=== PATIENT | female | born 1950 | race Caucasian/White ===

== ENCOUNTER → 2016-11-26 | Outpatient (CLI) | payer OTHER, MEDICAID ==
[~2016-11-26] VITALS: Ht 144.8 cm; Wt 89.0 kg
[~2016-11-26] MED LIST: ACET-822 PO; AMLO5CAP3 PO; AMOX500C PO; BENZOCAINE 20% ORAL SPR 60 ML CAN OROPHARYNG ONE; HYDR-3583 PO; LIDOCAINE HCL 2% JELLY 5 ML SYRINGE TOPICAL ONE; LORA-373 PO; METH500T3 PO; OMEP40CA2 PO; VENTAER INH
[2016-11-26 07:12] VITALS: BP 126/75; PULSE 84; RESP 16; TEMP 98.8; O2SAT 96
== END ==
LOC: HEND 06:36
PROVIDERS: ATTEND Internal Medicine Gastroenterology
DX: K44.9 Diaphragmatic hernia without obstruction or gangrene (principal)
CPT/HCPCS: 91010

== ENCOUNTER 2017-03-05 10:01 | Observation (INO) | payer OTHER, MEDICAID ==
[~2017-03-05] VITALS: Ht 144.8 cm; Wt 90.5 kg
[~2017-03-05 10:01] MED LIST changes: -ACET-822 PO; -AMOX500C PO; -BENZOCAINE 20% ORAL SPR 60 ML CAN OROPHARYNG ONE; -LIDOCAINE HCL 2% JELLY 5 ML SYRINGE TOPICAL ONE; -METH500T3 PO
[2017-03-05] MEDS ORDERED: ceFAZolin 2 GM PREMIX 50 ML IV SCH (10:45)
[2017-03-05] MEDS ORDERED: ACET-822 PO (10:59)
[2017-03-05] MEDS ORDERED: CHLORHEXIDINE GLUCONATE 2 % 1 PACK (2 CLOTHS) TOPICAL PRN (11:00)
[2017-03-05] MEDS ORDERED: LACTATED RINGER'S 1000 ML IV PRN (11:00)
[2017-03-05] MEDS ORDERED: METOPROLOL TARTRATE 25 MG TAB PO PRN (11:00)
[2017-03-05] MEDS ORDERED: POVIDONE IODINE 5% (ANTISEPSIS KIT) 4 APPLICATIONS EACH NARE PRN (11:00)
[2017-03-05] MEDS ORDERED: SODIUM CHLORID 0.9% 500 ML IV PRN (11:00)
[2017-03-05] MEDS ORDERED: INSULIN HUMAN REGULAR 1,000 UNITS/10 ML VIAL SQ PRN (11:00)
[2017-03-05 11:05] LABS: AUTOMATED NEUTROPHIL # 5.7 TH/MM3 (1.8-7.7); BASOPHIL # 0.1 TH/MM3 (0-0.2); BASOPHIL % 0.7 % (0.0-2.0); EOSINOPHIL # 0.3 TH/MM3 (0-0.4); HEMATOCRIT 36.5 % (35.0-46.0); HEMO FLAGS DIFF FINAL; LYMPH % 27.9 % (9.0-44.0); LYMPHOCYTE # 2.6 TH/MM3 (1.0-4.8); MEAN CELL VOLUME 66.1 FL (80.0-100.0); MEAN CORPUSCULAR HEMOGLOBIN 20.6 PG (27.0-34.0); MEAN CORPUSCULAR HGB CONC 31.2 % (32.0-36.0); MONO % 7.9 % (0.0-8.0); NEUT % 60.5 % (16.0-70.0); PLATELET COUNT 260 TH/MM3 (150-450); RED BLOOD COUNT 5.53 MIL/MM3 (4.00-5.30); RED CELL DISTRIBUTION WIDTH 17.2 % (11.6-17.2); WHITE BLOOD COUNT 9.5 TH/MM3 (4.0-11.0)
[2017-03-05 11:13] VITALS: BP 146/74; PULSE 104; RESP 18; TEMP 98.6; O2SAT 96
[2017-03-05 11:19] LABS: BICARBONATE 28.7 MEQ/L (21.0-32.0); POTASSIUM 3.8 MEQ/L (3.5-5.1)
[2017-03-05] MEDS ORDERED: LACTATED RINGER'S 1000 ML INJ 2,000 ML IV ONE (12:00)
[2017-03-05] MEDS ORDERED: PROPOFOL 200 MG/20 ML AMP IV ONE (12:00)
[2017-03-05] MEDS ORDERED: PHENYLEPH/NS 1000 MCG/10 ML SYR IV ONE (12:00)
[2017-03-05] MEDS ORDERED: NEOSTIGMINE 3 MG/3 ML SYR IV ONE (12:00)
[2017-03-05] MEDS ORDERED: ONDANSETRON HCL 4 MG/2 ML VIAL IV PUSH ONE (12:00)
[2017-03-05] MEDS ORDERED: MIDAZOLAM HCL 2 MG/2 ML VIAL ONE (13:55)
[2017-03-05] MEDS ORDERED: FAMOTIDINE 20 MG/2 ML VIAL ONE (13:55)
[2017-03-05] MEDS ORDERED: ACETAMINOPHEN 1000 MG/100 ML VIAL IV ONE (13:55)
[2017-03-05] MEDS ORDERED: DEXAMETHASONE SOD PHOS 4 MG/ML VIAL ONE (13:55)
--- NOTE | 2017-03-05 14:12 | HHI.PR ---
Immediate Post Op Note Procedure Date: Mar 05, 2017 Pre Op Diagnosis: reflux, hiatal hernia Post Op Diagnosis: same Surgeon: Edwin Griggs MD Wolf Hunter(s): Dr. Germán Sharif Procedure: robotic assts partial toupet fundoplication, EGD Findings: egd Complications: none Specimen(s) removed: none Estimated blood loss: 15cc Anesthesia: General Drains: None Patient to: PACU Patient Condition: Good Edwin Griggs MD Mar 05, 2017 14:11
[2017-03-05] MEDS ORDERED: BUPIVACAINE/EPINEPHRINE 0.25% 50 ML VIAL INFIL ONE (14:40)
[2017-03-05] MEDS ORDERED: fentaNYL CITRATE 250 MCG/5 ML AMP ONE (16:16)
[2017-03-05] MEDS ORDERED: HALOPERIDOL LACTATE 5 MG/ML AMP ONE (18:11)
[2017-03-05] MEDS ORDERED: ACETAMINOPHEN/HYDROcodone 325 MG/5 MG TAB PO PRN (18:15)
[2017-03-05] MEDS ORDERED: NALOXONE HCL 0.4 MG/ML AMP IV PRN (18:15)
[2017-03-05] MEDS ORDERED: diphenhydrAMINE HCL 25 MG CAP PO PRN (18:15)
[2017-03-05] MEDS ORDERED: Post-op Orders (for Pharmacy) MISC XX ONE (18:15)
[2017-03-05] MEDS ORDERED: SODIUM CHLORIDE 0.9% FLUSH 10 ML FLUSH IV FLUSH PRN (18:15)
[2017-03-05] MEDS ORDERED: ONDANSETRON HCL 4 MG/2 ML VIAL IV PRN (18:15)
[2017-03-05] MEDS ORDERED: METOCLOPRAMIDE HCL 10 MG/2 ML VIAL IVS PRN (18:15)
[2017-03-05] MEDS ORDERED: *HYDROmorphone PF 1 MG VIAL PERIprocedural Use ONLY ONE (18:29)
[2017-03-05] MEDS ORDERED: DO NOT ADM ANY ANTICOAGULANT DRUGS PRN (18:45)
[2017-03-05] MEDS ORDERED: *ONDANSETRON 4 MG VIAL PERIprocedural Use ONLY ONE (18:51)
[2017-03-05] MEDS ORDERED: *RESP: ALBUTEROL 2.5 MG/3 ML NEB (PRN) PERIprocedural Use ONLY NEB ONE (18:53)
[2017-03-05] MEDS ORDERED: MEPERIDINE HCL 25 MG/ML VIAL ONE (19:24)
[2017-03-05] MEDS: METOCLOPRAMIDE HCL 10 MG/2 ML VIAL IVS SCH (20:00)
[2017-03-05] MEDS: metroNIDAZOLE 500 MG INJ 100 ML IV SCH (20:00)
[2017-03-05] MEDS: SODIUM CHLORIDE 0.9% FLUSH 10 ML FLUSH IV FLUSH SCH (21:00)
[2017-03-05] MEDS: DOCUSATE SODIUM 100 MG CAP PO SCH (21:00)
[2017-03-05 21:01] VITALS: BP 133/62; PULSE 114; RESP 21; TEMP 96.4; O2SAT 95
[2017-03-05] MEDS ORDERED: PCA - TOTAL MG MORPHINE DELIVERED PER SHIFT SCH (22:00)
--- NOTE | 2017-03-05 22:51 | EKG ---
Date Performed: 03/05/2017 Time Performed: 11:04:25 PTAGE: 66 years EKG: Sinus rhythm NONSPECIFIC T-WAVE ABNORMALITY BORDERLINE ECG PREVIOUS TRACING : 02/26/2014 07.37 Compared to the previous tracing T wave changes less promin ent DOCTOR: Nery Santana Interpretating Date/Time 03/05/2017 22:50:59
[2017-03-06] VITALS (7 sets, daily range): BP systolic 87–139; BP diastolic 50–65; PULSE 85–101; RESP 16–20; TEMP 96.4–98.3; O2SAT 90–96
[2017-03-06] MEDS: METOCLOPRAMIDE HCL 10 MG/2 ML VIAL IVS SCH ×4 (03:00→21:37)
[2017-03-06] MEDS: metroNIDAZOLE 500 MG INJ 100 ML IV SCH ×2 (04:46→13:08)
[2017-03-06] MEDS: PCA - TOTAL MG DILAUDID DELIVERED PER SHIFT OTHER SCH ×3 (05:44→22:00)
[2017-03-06] MEDS: HYDROmorphone HCL PCA 6 MG/30 ML IV SCH ×2 (06:03→14:10)
[2017-03-06 08:03] LABS: AUTOMATED NEUTROPHIL # 10.8 TH/MM3 (1.8-7.7); BASOPHIL # 0.1 TH/MM3 (0-0.2); BASOPHIL % 0.4 % (0.0-2.0); EOSINOPHIL % 0.1 % (0.0-4.0); HEMATOCRIT 33.3 % (35.0-46.0); HEMO FLAGS DIFF FINAL; LYMPH % 11.1 % (9.0-44.0); LYMPHOCYTE # 1.5 TH/MM3 (1.0-4.8); MEAN CORPUSCULAR HEMOGLOBIN 20.5 PG (27.0-34.0); MEAN CORPUSCULAR HGB CONC 31.1 % (32.0-36.0); MONO % 6.3 % (0.0-8.0); NEUT % 82.1 % (16.0-70.0); PLATELET COUNT 279 TH/MM3 (150-450); RED BLOOD COUNT 5.05 MIL/MM3 (4.00-5.30); RED CELL DISTRIBUTION WIDTH 17.3 % (11.6-17.2); WHITE BLOOD COUNT 13.1 TH/MM3 (4.0-11.0)
[2017-03-06 08:13] LABS: BICARBONATE 25.9 MEQ/L (21.0-32.0); POTASSIUM 5.5 MEQ/L (3.5-5.1)
[2017-03-06] MEDS: SODIUM CHLORIDE 0.9% FLUSH 10 ML FLUSH IV FLUSH SCH ×2 (09:00→21:00)
[2017-03-06] MEDS: DOCUSATE SODIUM 100 MG CAP PO SCH ×2 (09:36→21:36)
[2017-03-06] MEDS: ACETAMINOPHEN/HYDROcodone 325 MG/5 MG TAB PO PRN ×2 (17:35→21:42)
[2017-03-07] VITALS: BP 119/57; PULSE 100; RESP 19; TEMP 99; O2SAT 94
[2017-03-07] MEDS: METOCLOPRAMIDE HCL 10 MG/2 ML VIAL IVS SCH (01:54)
[2017-03-07 04:10] VITALS: BP 132/63; PULSE 98; RESP 18; TEMP 98.4; O2SAT 93
[2017-03-07] MEDS: PCA - TOTAL MG DILAUDID DELIVERED PER SHIFT OTHER SCH (05:43)
--- NOTE | 2017-03-07 07:27 | HHI.PR ---
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
--- NOTE | 2017-03-07 07:29 | HHI.PR ---
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
[2017-03-07] MEDS ORDERED: oxyCODONE/ACETAMINOPHEN 7.5 MG/325 MG TAB PO PRN (07:30)
[2017-03-07 08:00] VITALS: BP 127/56; PULSE 104; RESP 16; TEMP 100.4; O2SAT 91
[2017-03-07] MEDS ORDERED: ENOXAPARIN SODIUM 30 MG/0.3 ML SYRINGE SQ SCH (08:00)
[2017-03-07] MEDS: oxyCODONE/ACETAMINOPHEN 7.5 MG/325 MG TAB PO PRN ×2 (08:05→13:04)
[2017-03-07] MEDS ORDERED: SCOPOLAMINE 1.5 MG PATCH T-DERMAL SCH (09:00)
[2017-03-07 12:00] VITALS: BP 133/71; PULSE 90; RESP 16; TEMP 99.9; O2SAT 91
[2017-03-07 15:34] LABS: BICARBONATE 27.1 MEQ/L (21.0-32.0); POTASSIUM 4.3 MEQ/L (3.5-5.1)
--- NOTE | 2017-03-07 15:54 | MP ---
cc: PATEL GRIGGS MD DATE OF SURGERY: 03/05/2017. PREOPERATIVE DIAGNOSIS: 1. Longstanding reflux refractory to medical management. 2. History of hiatal hernia. 3. History of GE junction ulcer. 4. Esophageal mild dysmotility. POSTOPERATIVE DIAGNOSIS 1. Longstanding reflux refractory to medical management. 2. History of hiatal hernia. 3. History of GE junction ulcer. 4. Esophageal mild dysmotility. OPERATIVE PROCEDURE PERFORMED: 1. Robotic-assisted laparoscopic 270-degree partial fundoplication, Toupet. 2. Esophagogastroduodenoscopy. SURGEON: Dr. Patel Griggs. SUPERVISOR SOAKERS: Dr. Germán Mosley (needed due to the complex nature of the laparoscopic robotic case. Dr. Mosley assisted in camera control and retraction). FINDINGS: Small hiatal hernia. partial wrap. EGD FINDINGS: No evidence of the GE junction ulcer. SPECIMENS: None. COMPLICATIONS: None. WOUND CLASSIFICATION: Clean / contaminated. ESTIMATED BLOOD LOSS: 40 cc. DRAINS: None. INDICATIONS FOR THE PROCEDURE: The patient is a 66-year-old female who presented for initial evaluation of reflux. The patient was also noted to have a hiatal hernia. She also noted to approximately one year ago to have a small GE junction ulcer. Biopsy confirmed esophagitis, reflux-induced. Further workup including manometry showed mild dysmotility. The upper GI confirmed hiatal hernia. The patient has been on chronic proton pump inhibitors without improvement in her reflux; therefore decision was made for operative intervention including partial wrap Toupet versus possible Tyler fundoplication and hiatal hernia repair. This was discussed with the patient in detail who stated understanding and agreed wanted to proceed with the procedure. DESCRIPTION OF THE PROCEDURE IN DETAIL: The patient was taken to the operating room suite and placed in the supine position. She was prepped and draped in the usual sterile fashion. The patient initially underwent an esophagogastroduodenoscopy. The Pentax esophageal scope was obtained after a brief time-out stating correct patient, procedure and surgical site. Bite block was placed. The scope was placed through the bite block and oropharynx down the esophagus and into the stomach. Gentle insufflation was done. I did not over-extend the stomach for the planned robotic procedure. On endoscopic evaluation of GE junction, there was no note of any ulceration just minimal gastritis and esophagitis. Retroflexed views demonstrated a small hiatal hernia and no other evidence of masses or abnormalities. The extent of the exam was to the pylorus. The gastroscope was retracted under direct visualization. The patient tolerated this part of te procedure and therefore decision was made to proceed with partial fundoplication. The patient was then prepped and draped to her abdomen in the usual sterile fashion. Attention was first directed 15 cm below the umbilicus where a stab umm incision was made. A Visiport was used with 5-mm cannula and the scope was used to cannulate and introduce into the abdomen and a pneumoperitoneum was obtained. On gross inspection, 15 cm noted to be somewhat proximal therefore a second incision was made 4 cm distal to this closer to the umbilicus and the camera port was placed in this area. A 12 mm port was placed for the robotic camera. Several other ports were placed including a right upper quadrant approximately 10 cm away from the camera port and 5 cm superiorly. Local anesthetic was injected. A stab umm incision was made. An 8 port was placed robotic in this area. The second robot port was placed on the left upper quadrant abdomen again 10 cm away and approximately 8 cm cephalad from this stab umm incision made after injection of local anesthetic an 8 port placed. Next a 5 mm assist port was placed in left lateral quadrant under direct visualization. This was an insufflator port. The liver port was actually placed initially as well. A 5 mm right upper quadrant subcostal anterior axillary line port was placed. The patient was then placed in reverse Trendelenburg position. The liver retractor was secured in place. The patient was noted to have very significant large fatty liver. Therefore umbilical tape was obtained to assist in further retraction and brought through the superior midline incision port that was then removed. Hemostat was used to secure it in place. Nest the nasogastric tube was advanced. Attention was directed to the pars flaccida and this was incised. The gastrohepatic ligament was also incised starting to identify the right karl in a circumferential manner dissecting the esophagus from this. Also going posteriorly robotically. The robot arms were also docked prior to this. I broke scrub and sat at the console. A window was made posteriorly. This was done with a Rodrigo and Harmonic scalpel. A large Lamar was used to place around the esophagus and GE junction for assistance in retraction. Further dissection to identify the hiatal hernia and dissection posteriorly to identify both the left and right karl was done to fully mobilize and scalpelize this area. Upon circumferential mobilization of the esophagus into the chest it was confirmed the GE junction was indeed intra-abdominal. The vagus nerves were identified anterior and posterior and protected. Next attention was directed to the greater curvature of the stomach where approximately two thirds the distance was transected up along to the angle of His mobilizing the superior portion with the harmonic transecting the short gastric vessels. Once we were satisfied with this, the repair began in the hiatal hernia. This was done with #0 silk sutures in [id number]-sd-elnch fashion with one tikbel-[id number]-vzuvf followed by a simple suture. The esophagus was noted at the hiatus and it was felt to be loosely approximating the crura. The greater curve of the stomach was grasped and brought posteriorly in a Toupet fashion. A shoeshine technique was done around the esophageal junction in order to facilitate a nice floppy partial 270 degree wrap. Several sutures were placed with 2-0 Surgidac involving the right upper piece of esophagus, corner of the stomach and securing to the superior right karl was done with simple 2-0 silk suture. Next several sutures were placed with one suture placed posteriorly and more inferiorly to this along the midline of the karl to help stabilize and secure the wrap in place. A third suture was placed involving the esophagus and more inferior portion of the greater curve that wrapped around posteriorly in order to facilitate a partial wrapping of the stomach. Attention was then directed to the left clues where a 2-0 silk was used to grab the corner of the stomach, the esophagus and the karl approximating this and creating again the partial wrap. Several other sutures were placed down inferior to this including 2-0 silk sutures to again facilitate wrapping partially the superior portion of the stomach around the esophageal GE junction. Once we had finished this and we were content with this, and prior to completion, fat pads were mobilized and transected as there was again extremely fatty liver and significant amount of omental fat intra-abdominally. The small liver lacerations remained hemostatic. Next the robot was then undocked and we finished the procedure laparoscopically removing Ray-Nelli that were placed intra-abdominally x2 followed by the Art followed by all needles and noted to be correct counts. Evicel hemostatic agent was then placed to assist with hemostasis. Irrigation was done in the upper quadrants until clear. Next the Amrgy-Flex liver retractor was then removed. The 12-mm camera port was closed after removal of the trocar with 0 Vicryl. All lap and instrument counts were correct at the end of the procedure. There was no intraoperative complication. The patient tolerated procedure well. Once the pneumoperitoneum was removed, the incisions were closed with 4-0 Monocryl and sterile dressings were then placed place. The patient taken stable to the post-anesthesia care unit extubated. IV fluids were 3000 cc. Lars MD CLAUDE Holden/AYAZ /9:30 PM /3:29 PM
[2017-03-10] MEDS ORDERED: REMOVE OLD SCOPOLAMINE PATCH T-DERMAL SCH (09:00)
== END 2017-03-07 17:04 | disposition home or self-care (01) ==
LOC: HSDC 10:01 → EDSTATUS 12:30 → HSDI 18:06 → N06B 21:06
PROVIDERS: ADMIT Surgery; ATTEND Surgery
DX: K21.0 Gastro-esophageal reflux disease with esophagitis (principal); K22.4 Dyskinesia of esophagus; K44.9 Diaphragmatic hernia without obstruction or gangrene; K76.0 Fatty (change of) liver, not elsewhere classified; S36.114A Minor laceration of liver, initial encounter; I10 Essential (primary) hypertension; J44.9 Chronic obstructive pulmonary disease, unspecified; X58.XXXA Exposure to other specified factors, initial encounter
CPT/HCPCS: 00790; 00810; 43280; 44376; 76937; 80048; 85025; 93005; 94150; 94664; G0378; J0131; J0690; J1100; J1170; J1630; J1650; J2175; J2250; J2370; J2405; J2710; J2765; J3010; J7120; J7613; S2900

== ENCOUNTER 2018-05-18 18:10 | Observation (INO) ==
[2018-05-18] MEDS ORDERED: HYDROmorphone PF Inj 4 MG/ML Ampul IM ONE (19:28)
--- NOTE | 2018-05-18 19:41 | ED ---
HPI General Chief complaint: Mill Supervisor Problem Stated complaint: medical doctor Time Seen by Provider: 05/18/18 19:20 History of Present Illness HPI narrative: pt has vascular port right subclavian area that is oozing blood still continues inspite of dressing denies anticoagulation allergic to asa and Has Lung CA . Vascular access was put in today by interventional radiology Dr. Chester and her oncologist is Dr. Rohit Melendez patient is here in the ER saying that is oozing after the procedure she said she went home it was not bleeding and then started oozing blood and continued to bleed all the way up until she arrived here in our ER. She is not on anticoagulant she recently has been diagnosed with the lung cancer she reports. she had a PET scan that was questionable findings in her lower abdomen. She is scheduled for a CT abdo to search for possible mets , SHe also reports having 2 bone fractures in her lumbral spine , pt says she also has pain in her right neck and burning feeling in HEr chest MD complaint: pt had vascular access bleeding placed today Related Data Home Medications Medication Instructions Recorded Confirmed amlodipine-benazepril 1 cap PO DAILY 05/18/18 05/19/18 hydrocodone-acetaminophen 1 tab PO Q6HR PRN 05/18/18 05/19/18 Previous Rx's Medication Instructions Recorded ondansetron 4 mg PO Q6H PRN #30 tab 05/21/18 Allergies Allergy/AdvReac Type Severity Reaction Status Date / Time aspirin Allergy Severe Bleeding Verified 05/18/18 06:56 morphine Allergy Severe STS CAN'T Verified 05/18/18 06:56 BREATH, RASH vancomycin Allergy Intermediate severe Verified 05/18/18 06:56 itching and hives naproxen AdvReac Severe STS BLOOD Verified 05/18/18 06:56 IN URINE Review of Systems ROS: all other systems reviewed are negative Exam Narrative Exam Narrative: GENERAL: oozing blood from dawna cath right subclavian SKIN: Warm and dry. HEAD: Atraumatic. Normocephalic. EYES: Pupils equal and round. No scleral icterus. No injection or drainage. ENT: No nasal bleeding or discharge. Mucous membranes pink and moist. NECK: Trachea midline. No JVD. CARDIOVASCULAR: Regular rate and rhythm. RESPIRATORY: No accessory muscle use. Clear to auscultation. Breath sounds equal bilaterally. GASTROINTESTINAL: Abdomen soft, non-tender, nondistended. Hepatic and splenic margins not palpable. MUSCULOSKELETAL: Extremities without clubbing, cyanosis, or edema. No obvious deformities. NEUROLOGICAL: Awake and alert. No obvious cranial nerve deficits. Motor grossly within normal limits. Five out of 5 muscle strength in the arms and legs. Normal speech. PSYCHIATRIC: Appropriate mood and affect; insight and judgment normal. Course Initial Documented Vital Signs Temperature 98.8 F 05/18/18 18:20 Pulse Rate 96 H 05/18/18 18:20 Respiratory Rate 32 H 05/18/18 18:20 Blood Pressure 198/88 H 05/18/18 18:20 Pulse Oximetry 95 05/18/18 18:20 Last Documented Vital Signs Temperature 99.1 F 05/21/18 11:31 Pulse Rate 90 05/21/18 11:31 Respiratory Rate 18 05/21/18 11:31 Blood Pressure 107/56 L 05/21/18 11:31 Pulse Oximetry 94 L 05/21/18 11:31 Medical Decision Making MDM Narrative Medical decision making narrative: I had pt lay with right side up to alleviate pressure on the vein and I held pressure for 7 minutes standing bedside and then pressure dressing applied. Pt asked for CT of ABDO that was scheduled for outpt to follow possible mets to her abdo , I did CT chest and abdo , No hematoma around port and Pelvis did not show any obvious Mets pt observed in ER . Medical Screen Exam Complete: Yes Emergency Medical Condition: Yes Differential Diagnosis Differential Diagnosis: oozing of venules around subQ skin from recent port placement vs vascular injury to major vein from catheter vs catherter rupture vs coagulopathy from LUNG CA Lab Data Result diagrams: 05/20/18 06:05 05/20/18 06:05 Lab Results 05/18/18 05/18/18 05/19/18 Range/Units 22:55 22:55 10:51 WBC 9.2 (4.0-11.0) th/mm3 RBC 5.19 (4.00-5.30) mil/mm3 Hgb 10.8 L (11.6-15.3) gm/dL Hct 35.6 (35.0-46.0) % MCV 68.5 L (80.0-100.0) fL MCH 20.9 L (27.0-34.0) pg MCHC 30.5 L (32.0-36.0) % RDW 18.7 H (11.6-17.2) % Plt Count 268 (150-450) th/mm3 MPV 8.4 (7.0-11.0) fL Neut % (Auto) 70.9 H (16.0-70.0) % Lymph % (Auto) 20.0 (9.0-44.0) % Pickens % (Auto) 7.5 (0.0-8.0) % Eos % (Auto) 0.9 (0.0-4.0) % Baso % (Auto) 0.7 (0.0-2.0) % Neut # (Auto) 6.6 (1.8-7.7) th/mm3 Lymph # (Auto) 1.8 (1.0-4.8) th/mm3 Pickens # (Auto) 0.7 (0.0-0.9) th/mm3 Eos # (Auto) 0.1 (0.0-0.4) th/mm3 Baso # (Auto) 0.1 (0.0-0.2) th/mm3 WBC Differential . Differential Comment Auto diff final PT 10.1 (9.8-11.6) sec INR 1.0 Ratio APTT 26.3 (24.3-30.1) sec Sodium 143 (136-145) meq/L Potassium 4.1 (3.5-5.1) meq/L Chloride 107 (98-107) meq/L Carbon Dioxide 29.5 (21.0-32.0) meq/L Anion Gap 7 (5-15) meq/L BUN 11 (7-18) mg/dL Creatinine 0.76 (0.50-1.00) mg/dL Estimated GFR 76 L (>89) mL/min Random Glucose 119 H (74-106) mg/dL Calcium 7.9 L (8.5-10.1) mg/dL Total Bilirubin 0.4 (0.2-1.0) mg/dL AST 19 (15-37) U/L ALT 13 (10-53) U/L Alkaline Phosphatase 99 (45-117) U/L Total Protein 7.8 (6.4-8.2) g/dL Albumin 3.1 L (3.4-5.0) g/dL 05/20/18 05/20/18 Range/Units 06:05 06:05 WBC 8.2 (4.0-11.0) th/mm3 RBC 4.59 (4.00-5.30) mil/mm3 Hgb 9.6 L (11.6-15.3) gm/dL Hct 31.9 L (35.0-46.0) % MCV 69.5 L (80.0-100.0) fL MCH 21.0 L (27.0-34.0) pg MCHC 30.2 L (32.0-36.0) % RDW 19.0 H (11.6-17.2) % Plt Count 255 (150-450) th/mm3 MPV 8.2 (7.0-11.0) fL Neut % (Auto) 67.1 (16.0-70.0) % Lymph % (Auto) 22.9 (9.0-44.0) % Pickens % (Auto) 7.0 (0.0-8.0) % Eos % (Auto) 2.6 (0.0-4.0) % Baso % (Auto) 0.4 (0.0-2.0) % Neut # (Auto) 5.5 (1.8-7.7) th/mm3 Lymph # (Auto) 1.9 (1.0-4.8) th/mm3 Pickens # (Auto) 0.6 (0.0-0.9) th/mm3 Eos # (Auto) 0.2 (0.0-0.4) th/mm3 Baso # (Auto) 0.0 (0.0-0.2) th/mm3 WBC Differential . Differential Comment Auto diff final PT (9.8-11.6) sec INR Ratio APTT (24.3-30.1) sec Sodium 143 (136-145) meq/L Potassium 3.9 (3.5-5.1) meq/L Chloride 106 (98-107) meq/L Carbon Dioxide 32.1 H (21.0-32.0) meq/L Anion Gap 5 (5-15) meq/L BUN 13 (7-18) mg/dL Creatinine 0.78 (0.50-1.00) mg/dL Estimated GFR 73 L (>89) mL/min Random Glucose 98 (74-106) mg/dL Calcium 8.4 L (8.5-10.1) mg/dL Total Bilirubin (0.2-1.0) mg/dL AST (15-37) U/L ALT (10-53) U/L Alkaline Phosphatase (45-117) U/L Total Protein (6.4-8.2) g/dL Albumin (3.4-5.0) g/dL Imaging Data Radiologist's impression: Abdomen/Pelvis CT 05/19/18 00:00 CONCLUSION: 1. Minimal dependent atelectasis in the lungs. Fatty infiltration of the liver. Small hiatal hernia. Colonic diverticula without diverticulitis. No evidence for metastatic disease to the abdomen and pelvis. Chest CT 05/19/18 00:00 CONCLUSION: 1. 5.6 cm mass in left upper lobe with left hilar silvia metastasis. Infuse-a- Port tip in right atrium. Port Line Revision 05/20/18 00:00 CONCLUSION: 1. Uncomplicated port removal as above. Head CT 05/21/18 00:00 CONCLUSION: 1. No acute intracranial abnormality identified. Discharge Plan Discharge Disposition Patient Disposition: /Home Health Service Discharge Condition Condition: Stable Discharge Order Discharge Orders: Discharge Order (Routine); Ordered 05/21/18 Ordered By: Linda Asher Physicians Team ED Provider: Saw High Primary Care Provider: NON STAFF,PROVIDER Attending Provider: Tommy Nuno Other Providers: Rohit Melendez [employer] Status ED Status: Left Department Discharge Information Discharge Date/Time: 05/19/18 16:58
[2018-05-18 23:11] LABS: Baso # (Auto) 0.1 th/mm3 (0.0-0.2); Baso % (Auto) 0.7 % (0.0-2.0); Eos # (Auto) 0.1 th/mm3 (0.0-0.4); Eos % (Auto) 0.9 % (0.0-4.0); Hematocrit 35.6 % (35.0-46.0); Hemoglobin 10.8 gm/dL (11.6-15.3); Lymph # (Auto) 1.8 th/mm3 (1.0-4.8); Mean Corpuscular Hemoglobin 20.9 pg (27.0-34.0); Mean Corpuscular Volume 68.5 fL (80.0-100.0); Mean Platelet Volume 8.4 fL (7.0-11.0); Mono # (Auto) 0.7 th/mm3 (0.0-0.9); Mono % (Auto) 7.5 % (0.0-8.0); Neut # (Auto) 6.6 th/mm3 (1.8-7.7); Neut % (Auto) 70.9 % (16.0-70.0); Platelet Count 268 th/mm3 (150-450); Red Blood Count 5.19 mil/mm3 (4.00-5.30); Red Cell Distribution Width 18.7 % (11.6-17.2); White Blood Count 9.2 th/mm3 (4.0-11.0)
[2018-05-18 23:15] LABS: Mean Corpuscular HGB Conc 30.5 % (32.0-36.0)
[2018-05-18 23:42] LABS: Alkaline Phosphatase 99 U/L (45-117); Total Protein 7.8 g/dL (6.4-8.2)
[2018-05-18 23:56] LABS: Alanine Aminotransferase 13 U/L (10-53); Albumin 3.1 g/dL (3.4-5.0); Anion Gap 7 meq/L (5-15); Aspartate Aminotransferase 19 U/L (15-37); Blood Urea Nitrogen 11 mg/dL (7-18); Calcium 7.9 mg/dL (8.5-10.1); Carbon Dioxide 29.5 meq/L (21.0-32.0); Chloride 107 meq/L (98-107); Glomerular Filtration Rate 76 mL/min (>89); Glucose,Random 119 mg/dL (74-106); Potassium 4.1 meq/L (3.5-5.1); Sodium 143 meq/L (136-145)
[2018-05-19] MEDS ORDERED: HYDROmorphone PF Inj 2 MG/ML Vial IV.PUSH ONE (00:37)
--- NOTE | 2018-05-19 01:32 | CT ---
EXAM DATE: 05/19/2018 1:03 AM EDT AGE/SEX: 67 years / Female INDICATIONS: Lung cancer, evaluate for metastases. CLINICAL DATA: This is the patient's initial encounter. Patient reports that signs and symptoms have been present for 1 day and indicates a pain score of 2/10. MEDICAL/SURGICAL HISTORY: Chronic obstructive pulmonary disease. Carcinoma, lung. Cardiovascu lar disease. Hypertension. Lupus. Cerebrovascular disease. None. ORAL CONTRAST: No oral contrast ingested. RADIATION DOSE: 20.21 CTDI (mGy) ; Combined studies COMPARISON: [facility] [place], CT ABDOMEN & PELVIS W CONTRAST, 11/30/2011. . TECHNIQUE: Multiple contiguous axial images were obtained through the abdomen and pelvis following b olus infusion of 90 ml Omnipaque 350 (iohexol) nonionic water-soluble contrast as a cumulative dose for multiple exams. No oral contrast ingested. Using automated exposure control and adjustment of t he mA and/or kV according to patient size, radiation dose was kept as low as reasonably achievable to obtain optimal diagnostic quality images. DICOM format image data is available electronically for r eview and comparison. FINDINGS: Lung bases demonstrate some dependent atelectasis. Diffuse fatty liver identified. Spleen, adrenals and pancreas unremarkable. Small left renal cyst sim ilar to 2011. Right kidney unremarkable. No calcified gallstones or biliary ductal dilatation. No free fluid. No bowel obstruction. No adenopa thy. Colonic diverticula without evidence for diverticulitis. CONCLUSION: 1. Minimal dependent atelectasis in the lungs. Fatty infiltration of the liver. Small hiatal hernia. Colonic diverticula without diverticulitis. No evidence for metastatic disease to the abdomen and pe lvis. Electronically signed by: Saurabh Liu MD 05/19/2018 1:31 AM EDT
--- NOTE | 2018-05-19 01:36 | CT ---
EXAM DATE: 05/19/2018 1:04 AM EDT AGE/SEX: 67 years / Female INDICATIONS: Chemo port placement today in right chest. Bleeding. Painful respiration. CLINICAL DATA: This is the patient's initial encounter. Patient reports that signs and symptoms have been present for 1 day and indicates a pain score of 7/10. MEDICAL/SURGICAL HISTORY: Chronic obstructive pulmonary disease. Cardiovascular disease. Carcinom a, lung. Lupus. Cerebrovascular disease. None. RADIATION DOSE: 20.21 CTDI (mGy) ; Combined studies COMPARISON: No prior exams available for comparison. TECHNIQUE: Multiple contiguous axial images were obtained through the chest during bolus infusion of 90 ml Omnipaque 350 (iohexol) nonionic water-soluble contrast as a cumulative dose for multiple exa ms. Images were obtained in suspended respiration using multiple row detector helical technique. U sing automated exposure control and adjustment of the mA and/or kV according to patient size, radiati on dose was kept as low as reasonably achievable to obtain optimal diagnostic quality images. DICOM format image data is available electronically for review and comparison. FINDINGS: There is a mass in the left upper lobe measuring up to 5.6 cm in diameter with left hilar lymph node measuring up to 2.3 cm in diameter characteristic of reported history of lung cancer. There is mild e mphysema. Oorhux-j-Dtge in right atrium. Dependent atelectasis in both lungs. No axillary adenopathy. No acute bony abnormalities. CONCLUSION: 1. 5.6 cm mass in left upper lobe with left hilar silvia metastasis. Tjcmhp-a-[id number] tip in right atriu m. Electronically signed by: Saurabh Liu MD 05/19/2018 1:35 AM EDT
[2018-05-19] MEDS: Sod Chloride 0.9% Inj 1,000 ML IV.CONT SCH ×2 (07:59→19:12)
--- NOTE | 2018-05-19 10:50 | MB ---
cc: Rohit Melendez MD DATE: 05/19/2018 ATTENDING PHYSICIAN: Saw High MD REASON FOR CONSULTATION: Oncology consulted regarding patient with lung cancer, admitted with bleeding from the port site. HISTORY OF PRESENT ILLNESS: The patient is a 67-year-old female recently diagnosed with locally advanced lung cancer. She was found to have a lung mass during a preoperative workup for back surgery. A PET scan showed left upper lobe lung mass with left hilar lymphadenopathy and left supraclavicular adenopathy. Biopsy of lung mass showed a moderately differentiated squamous cell carcinoma. She had constitutional symptoms with a 20-30 pound weight loss. He has had chronic back pain. She developed pneumothorax after lung biopsy and had been on oxygen since then. She also had chronic abdominal discomfort and intermittent nausea. She came in yesterday for port placement. When she returned home, she started having oozing around the port site. She came to the emergency room. According to the nursing staff this morning, there was still some oozing around the port site. She currently has a pressure dressing. She still has a constellation of symptoms with soreness at the surgical site and right neck area. PAST MEDICAL HISTORY: Non-small cell lung cancer, anemia, anxiety, chronic obstructive pulmonary disease, gastric ulcer, heart disease, hypertension, fatty liver, lupus, osteoarthritis, osteoporosis, stroke. PAST SURGICAL HISTORY: Cataract removal, EGD, fundoplication, ovarian tumor removal, upper endoscopy, colonoscopy, complete hysterectomy, port placement. FAMILY HISTORY: Father of lung cancer. One brother had prostate cancer. She has a son and 2 daughters, all relatively healthy but one of the daughters has breast cancer. SOCIAL HISTORY: She quit smoking 7 years ago and she had a [id number] smoking history. Denies alcohol use. ALLERGIES: 1. ASPIRIN 2. AZITHROMYCIN. 3. MORPHINE. 4. VANCOMYCIN. CURRENT MEDICATIONS: Ondansetron p.r.n. PHYSICAL EXAMINATION: VITAL SIGNS: Temperature 98.3, blood pressure 137/67, O2 saturation 96% on 2 liters nasal cannula. GENERAL: She is alert, oriented x3, no acute distress. HEENT: Atraumatic, normocephalic. Pupils are equal, round, reactive. Oropharynx dry mucosa. NECK: No thyromegaly. LYMPHATIC: No palpable supraclavicular or axillary lymph nodes. CARDIOVASCULAR: Regular S1, S2. No murmur. LUNGS: Clear to auscultation anteriorly. ABDOMEN: Soft, nontender. No palpable hepatosplenomegaly. EXTREMITIES: No cyanosis, clubbing, or edema. No calf tenderness. SKIN: No rash or petechiae. CHEST: The right chest wall port site has a pressure dressing. Dressing is dry. LABORATORY DATA: WBC 9.2, hemoglobin 10.8, platelet count 268. Creatinine of 0.76. Liver transaminase within normal limits. ASSESSMENT: 1. Locally advanced non-small cell lung cancer, possibly a stage T3 N3c. PET scan in April showed 5.4 cm mass in left upper lobe with hypermetabolic left hilar adenopathy with 1.1 cm mildly hypermetabolic lymph node in the left supraclavicular area. 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 On presentation, she had a repeat CT of the chest which showed a lung mass that measured 5.6 cm with left hilar lymph node that measured 2.3 cm. There was no clear evidence of supraclavicular lymph node. The plan is to treat her with concurrent radiation and chemotherapy if she has good pulmonary function. She is going to have a pulmonary function test later this week. She also will follow up with Radiation Oncology. 2. Bleeding around the port site. Checked in with the nursing staff. The nursing staff stated that the patient still had oozing around the port site this morning. We will consult Interventional Radiology for further evaluation and we will also check coagulation studies. 3. Chronic pain. PET scan did not show any obvious bone metastasis. 4. Chronic obstructive pulmonary disease. She is on oxygen. 5. History of stroke. PLAN: 1. Review CT scan with the patient. 2. Check coagulation study. 3. Consult Interventional Radiology to evaluate the port. 4. The patient can be discharged home if she stops bleeding from the port site. 5. She will continue workup and treatment of lung cancer as an outpatient. Thank you Dr. High for asking me to see this patient. MD ALEXEY Connell/veda , 08:13 AM , 08:25 AM ISAC
[2018-05-19 11:47] LABS: Activated Partial Thrombo Time 26.3 sec (24.3-30.1); Prothrombin Time 10.1 sec (9.8-11.6)
[2018-05-19] MEDS ORDERED: Naloxone Inj 0.4 MG/ML Vial IV.PUSH PRN (12:07)
[2018-05-19] MEDS ORDERED: HYDROmorphone PF Inj 1 MG/ML Ampul IV.PUSH PRN ×2 (12:07)
[2018-05-19] MEDS: oxyCODONE/Acetaminophen 10/325 Tablet PO PRN (12:22)
--- NOTE | 2018-05-19 18:22 | P.HP ---
History of Present Illness Service: Hospitalist Primary Care Physician: PROVIDER NON STAFF Chief Complaint: Bleeding from port History of Present Illness: Patient is a 67-year-old female who presents to the emergency room due to bleeding from right chest port which was placed earlier in the day by interventional radiology. She was recently diagnosed with advanced lung cancer. Past medical history includes anemia, anxiety, COPD, ulcer, heart disease, hypertension, fatty liver, lupus, osteoarthritis, osteoporosis, CVA and chronic pain. She is seen sitting up in bed after evaluation by IR. Port is no longer bleeding and has pressure dressing in place. She tells me that she has a lot of pain much of which is chronic however she is also experiencing some pain in the left side of her neck at her biopsy incision site. Denies any chest pain or shortness of breath. No nausea vomiting or diarrhea. She is very sad and upset by her diagnosis of cancer. Review of Systems All other systems reviewed negative except as stated in HPI PMFSH - History History Provided By: Patient, Medical Record - Medical History Medical History: Medical History (Last Reviewed 05/19/18 @ 18:14 by KIRT Trevino) History of hysterectomy Anemia Anxiety COPD (chronic obstructive pulmonary disease) Gastric ulcer H/O pelvic mass Heart disease Hypertension Liver problem Lung cancer Lupus Osteoarthritis Osteoporosis Pneumothorax after biopsy Stroke - Surgical History Surgical History: Surgical History (Last Reviewed 05/19/18 @ 18:14 by KIRT Trevino) History of fundoplication Hx of cataract surgery Hx of removal of ovary - Family History Family History: Family History (Last Reviewed 05/19/18 @ 18:14 by KIRT Trevino) Father Lung cancer Brother Prostate cancer Daughter Breast cancer - Tobacco History Second Hand Smoke Exposure: No Smoking Status: Former smoker Tobacco Type: Cigarettes - Alcohol History How Often Do You Have a Drink Containing Alcohol: Never - Substance Use History Substance History: No History of Abuse - Travel History Recent Travel in the [place] Within the Last 8 Weeks: No Recent Travel Out of the Country Within the Last 8 Weeks: No - Immunization History Tetanus Immunization: <5 Years Medications and Allergies Active Medications: Active Medications Acetaminophen (Tylenol) 650 mg PO Q6HR PRN PRN Reason: PAIN SCALE 1 TO 2 Hydromorphone HCl (Dilaudid Pf Inj) 1 mg IV.PUSH Q3H PRN PRN Reason: PAIN 6-10;IF UNABLE TO TAKE PO Hydromorphone HCl (Dilaudid Pf Inj) 0.5 mg IV.PUSH Q3H PRN PRN Reason: PAIN 3-5; IF UABLE TO TAKE PO Sodium Chloride (Ns Inj) 1,000 mls @ 100 mls/hr IV.CONT .Q10H BUTCH Last Infusion: 05/19/18 14:23 Dose: 100 mls/hr Naloxone HCl (Narcan Inj) 0.4 mg IV.PUSH UNSCH PRN PRN Reason: SEE LABEL COMMENTS Ondansetron HCl (Zofran Inj) 4 mg IV.PUSH Q6H PRN PRN Reason: NAUSEA OR VOMITING Last Admin: 05/19/18 12:28 Dose: 4 mg Oxycodone/Acetaminophen (Percocet 5/325 Mg) 1 tab PO Q6H PRN PRN Reason: PAIN SCALE 3 TO 5 Oxycodone/Acetaminophen (Percocet 10/325 Mg) 1 tab PO Q6H PRN PRN Reason: PAIN SCALE 6 TO 10 Last Admin: 05/19/18 12:22 Dose: 1 tab Allergies Allergy/AdvReac Type Severity Reaction Status Date / Time aspirin Allergy Severe Bleeding Verified 05/18/18 06:56 morphine Allergy Severe STS CAN'T Verified 05/18/18 06:56 BREATH, RASH vancomycin Allergy Intermediate severe Verified 05/18/18 06:56 itching and hives naproxen AdvReac Severe STS BLOOD Verified 05/18/18 06:56 IN URINE Home Medications Medication Instructions Recorded Confirmed Type amlodipine-benazepril 1 cap PO DAILY 05/18/18 05/19/18 History hydrocodone-acetaminophen 1 tab PO Q6HR PRN 05/18/18 05/19/18 History Exam Vital signs: Vital Signs 05/18/18 18:20 05/18/18 19:59 05/18/18 22:58 Temperature 98.8 F Pulse Rate 96 H 85 77 Respiratory Rate 32 H 16 18 Blood Pressure 198/88 H 160/78 H 138/79 Pulse Oximetry 95 93 L 95 05/19/18 01:37 05/19/18 03:00 05/19/18 07:00 Temperature 98.4 F 98.3 F Pulse Rate 88 86 Respiratory Rate 17 17 16 Blood Pressure 149/84 H 137/67 Pulse Oximetry 99 05/19/18 07:55 05/19/18 07:56 05/19/18 09:30 Temperature 98.8 F Pulse Rate 88 Respiratory Rate 18 Blood Pressure 150/73 H Pulse Oximetry 96 96 97 05/19/18 10:30 05/19/18 11:00 05/19/18 16:33 Temperature Pulse Rate 84 80 80 Respiratory Rate 19 18 18 Blood Pressure 142/67 H 142/64 H 132/66 Pulse Oximetry 98 98 98 05/19/18 17:29 Temperature 98.5 F Pulse Rate 87 Respiratory Rate 16 Blood Pressure 170/74 H Pulse Oximetry 97 Intake & Output 05/18/18 05/19/18 05/19/18 18:59 06:59 18:59 Weight 77.111 kg Narrative: GENERAL: Well-nourished, well-developed adult female in no obvious distress. SKIN: Warm and dry. Incision above right clavicle with Steri-Strip in place. Clean and dry. Pressure dressing to right chest port; no drainage noted. HEAD: Atraumatic. Normocephalic. CARDIOVASCULAR: Regular rate and rhythm. RESPIRATORY: No accessory muscle use. Clear to auscultation. Breath sounds equal bilaterally. GASTROINTESTINAL: Abdomen soft, non-tender, non-distended. Positive bowel sounds. MUSCULOSKELETAL: Extremities without clubbing, cyanosis, or edema. No obvious deformities. NEUROLOGICAL: Awake and alert. No obvious cranial nerve deficits. Motor grossly within normal limits. Normal speech. PSYCHIATRIC: Appropriate mood and affect; insight and judgment good. sad. Results - Labs CBC & Chem 7: 05/18/18 22:55 05/18/18 22:55 Labs: Laboratory Results - last 24 hr 05/18/18 05/18/18 05/19/18 22:55 22:55 10:51 WBC 9.2 RBC 5.19 Hgb 10.8 L Hct 35.6 MCV 68.5 L MCH 20.9 L MCHC 30.5 L RDW 18.7 H Plt Count 268 MPV 8.4 Neut % (Auto) 70.9 H Lymph % (Auto) 20.0 [place] % (Auto) 7.5 Eos % (Auto) 0.9 Baso % (Auto) 0.7 Neut # (Auto) 6.6 Lymph # (Auto) 1.8 [place] # (Auto) 0.7 Eos # (Auto) 0.1 Baso # (Auto) 0.1 WBC Differential . Differential Comment Auto diff final PT 10.1 INR 1.0 APTT 26.3 Sodium 143 Potassium 4.1 Chloride 107 Carbon Dioxide 29.5 Anion Gap 7 BUN 11 Creatinine 0.76 Estimated GFR 76 L Random Glucose 119 H Calcium 7.9 L Total Bilirubin 0.4 AST 19 ALT 13 Alkaline Phosphatase 99 Total Protein 7.8 Albumin 3.1 L - Imaging Impressions Abdomen/Pelvis CT 05/19/18 00:00 CONCLUSION: 1. Minimal dependent atelectasis in the lungs. Fatty infiltration of the liver. Small hiatal hernia. Colonic diverticula without diverticulitis. No evidence for metastatic disease to the abdomen and pelvis. Chest CT 05/19/18 00:00 CONCLUSION: 1. 5.6 cm mass in left upper lobe with left hilar silvia metastasis. Infuse-a- Port tip in right atrium. Caprini VTE Risk Assessment Caprini VTE Risk Assessment: No/Low Risk (score <= 1) Caprini Risk Assessment Model: Point Value = 1 Point Value = 2 Point Value = 3 Point Value = 5 Age 41-60 Minor surgery BMI > 25 kg/m2 Swollen legs Varicose veins or History of unexplained or recurrent spontaneous Oral contraceptives or hormone replacement Sepsis (< 1 month) Serious lung disease, including pneumonia (< 1 month) Abnormal pulmonary function Acute myocardial infarction Congestive heart failure (< 1 month) History of inflammatory bowel disease Medical patient at bed rest Age 61-74 Arthroscopic surgery Major open surgery (> 45 min) Laparoscopic surgery (> 45 min) Malignancy Confined to bed (> 72 hours) Immobilizing plaster cast Central venous access Age >= 75 History of VTE Family history of VTE Factor V Leiden Prothrombin [id number] Lupus anticoagulant Anticardiolipin antibodies Elevated serum homocysteine Heparin-induced thrombocytopenia Other congenital or acquired thrombophilia Stroke (< 1 month) Elective arthroplasty Hip, pelvis, or leg fracture Acute spinal cord injury (< 1 month) Prophylaxis Regimen: Total Risk Factor Score Risk Level Prophylaxis Regimen 0-1 Low Early ambulation 2 Moderate Order ONE of the following: *Sequential Compression Device (SCD) *Heparin 5000 units SQ BID 3-4 Higher Order ONE of the following medications: *Heparin 5000 units SQ TID *Enoxaparin/Lovenox 40 mg SQ daily (WT < 150 kg, CrCl > 30 mL/min) *Enoxaparin/Lovenox 30 mg SQ daily (WT < 150 kg, CrCl > 10-29 mL/min) *Enoxaparin/Lovenox 30 mg SQ BID (WT < 150 kg, CrCl > 30 mL/min) AND/OR *Sequential Compression Device (SCD) 5 or more Highest Order ONE of the following medications: *Heparin 5000 units SQ TID (Preferred with Epidurals) *Enoxaparin/Lovenox 40 mg SQ daily (WT < 150 kg, CrCl > 30 mL/min) *Enoxaparin/Lovenox 30 mg SQ daily (WT < 150 kg, CrCl > 10-29 mL/min) *Enoxaparin/Lovenox 30 mg SQ BID (WT < 150 kg, CrCl > 30 mL/min) AND *Sequential Compression Device (SCD) Assessment and Plan - Plan Patient is a 67-year-old female who presents to the emergency room due to bleeding from right chest port which was placed earlier in the day by interventional radiology. She was recently diagnosed with advanced lung cancer. Past medical history includes anemia, anxiety, COPD, ulcer, heart disease, hypertension, fatty liver, lupus, osteoarthritis, osteoporosis, CVA and chronic pain. Bleeding from port site -Under evaluation by interventional radiology -Currently controlled; monitor H&H and INR Lung cancer -Oncology consulted; appreciate assistance -oncology has recommended that she can be discharged home for outpatient follow-up if the bleeding stops from the port site. Acute pain with underlying chronic pain -Pain medication as indicated; Eforsce database consulted. Discussed with: Patient, nurse, Dr. Nuno Discharge plan: likely home
[2018-05-19] MEDS: HYDROmorphone PF Inj 2 MG/ML Vial IV.PUSH PRN ×2 (18:26→21:51)
[2018-05-20] MEDS: Acetaminophen 325 MG Tablet PO PRN (00:14)
[2018-05-20] MEDS: HYDROmorphone PF Inj 2 MG/ML Vial IV.PUSH PRN ×6 (01:07→20:10)
[2018-05-20] MEDS: Sod Chloride 0.9% Inj 1,000 ML IV.CONT SCH ×2 (05:30→14:21)
[2018-05-20 07:25] LABS: Baso % (Auto) 0.4 % (0.0-2.0); Eos # (Auto) 0.2 th/mm3 (0.0-0.4); Eos % (Auto) 2.6 % (0.0-4.0); Hematocrit 31.9 % (35.0-46.0); Hemoglobin 9.6 gm/dL (11.6-15.3); Lymph # (Auto) 1.9 th/mm3 (1.0-4.8); Lymph % (Auto) 22.9 % (9.0-44.0); Mean Corpuscular Volume 69.5 fL (80.0-100.0); Mean Platelet Volume 8.2 fL (7.0-11.0); Mono # (Auto) 0.6 th/mm3 (0.0-0.9); Neut # (Auto) 5.5 th/mm3 (1.8-7.7); Neut % (Auto) 67.1 % (16.0-70.0); Platelet Count 255 th/mm3 (150-450); Red Blood Count 4.59 mil/mm3 (4.00-5.30); White Blood Count 8.2 th/mm3 (4.0-11.0)
[2018-05-20 07:26] LABS: Mean Corpuscular HGB Conc 30.2 % (32.0-36.0)
[2018-05-20 07:49] LABS: Calcium 8.4 mg/dL (8.5-10.1); Carbon Dioxide 32.1 meq/L (21.0-32.0); Potassium 3.9 meq/L (3.5-5.1)
[2018-05-20] MEDS: amLODIPine 5 MG Tablet PO SCH (08:30)
[2018-05-20] MEDS: Lisinopril 20 MG Tablet PO SCH (08:33)
--- NOTE | 2018-05-20 11:35 | IR ---
EXAM DATE: 05/19/2018 4:35 PM EDT AGE/SEX: 67 years / Female INDICATIONS: Newly placed port, site evaluation. HISTORY OF PRESENT ILLNESS: The patient underwent Czfepl-p-Bajl placement 05/18/2018. The patient did well during the port placement. The patient came back to the ED approximately 12 hours later with co mplaints of something protruding from the puncture site at the neck. This was evaluated and found to be the Steri-Strips which were placed above the incision at the neck. There was some bleeding at the skin surface from the site of the port placement. The patient was sent to the radiology outpatient it for evaluation. TEMPERATURE: 98.8 HEART RATE: 88 BLOOD PRESSURE: 150/73 RESPIRATIONS: 18 OXIMETRY: 97 MEDICAL/SURGICAL HISTORY: The patient underwent Gsuflf-n-Vecx placement for treatment of lung cancer 05/18/2018. PHYSICAL EXAM: The Euehrk-o-Zcle insertion site was evaluated. There was no hematoma in the chest wall. There was no evidence of significant bleeding. The existing Steri-Strips were removed. The incision site was samina becky. New Steri-Strips were applied. The patient was discharged without incident ASSESSMENT: There is no evidence of significant hematoma or significant bleeding from the port insert ion site. The area was cleaned. A new sterile dressing was placed. PLAN: The patient will be seen back in approximately 48 hours for recheck. TIME SPENT: 15 minutes. Electronically signed by: Sam Chester MD 05/20/2018 11:34 AM EDT
--- NOTE | 2018-05-20 11:52 | ECG ---
Date Performed: 05/19/2018 Time Performed: 16:09:14 PTAGE: 67 years EKG: Sinus rhythm NORMAL ECG PREVIOUS TRACING : 03/05/2017 11.04 DOCTOR: Bogdan Morrow Interpretating Date/Time 05/20/2018 11:49:50
[2018-05-20] MEDS ORDERED: Lidocaine 1%/Epinephrine 1:100,000 Inj 30 ML Vial ONE (15:25)
[2018-05-20] MEDS ORDERED: ceFAZolin 1 GM Premix Inj 1 GM/50 ML FROZ.PIGGY IV.SIG ONE (15:30)
[2018-05-20] MEDS ORDERED: fentaNYL Citrate Inj 100 MCG/2 ML Ampul ONE (15:46)
--- NOTE | 2018-05-20 16:15 | P.RAD ---
Post Procedure Progress Note - Pre Procedure Diagnosis (1) Encounter for care related to Port-a-Cath - Post Procedure Diagnosis (1) Encounter for care related to Port-a-Cath - Procedure Information Procedure Date: 05/20/18 Supervising Radiologist: Sam Chester MD Estimated blood loss (mL): 1 Anesthesia: Local, Conscious Sedation - Plan of Activity Patient to Unit: ROPU Patient Condition: Fair Additional Comments: 67 y/o who underwent port placement 05/18/18. Patient was seen back in ED 6 hours post with complaints of bleeding at incision. Pressure held PT was evaluated in AM 05/19/18 and port appeared fine with possible dehiscence of the lateral margin of the incision. No bleeding was evident. Port incision was redressed. Pt was seen for follow up today and the edge of the incision appeared to have a tiny opening with a small amount of pink drainage. Port was removed, incision was irrigated and closed. Full dictated report to follow See PACS Report for procedural detail/treatment.
--- NOTE | 2018-05-20 16:32 | IR ---
INDICATIONS: Patient presents with bleeding from newly placed port in need of Vmdbz-i-Lwgz removal. CLINICAL DATA: This is the patient's subsequent encounter. Patient reports that signs and symptoms h ave been present for 2 days and indicates a pain score of 0/10. Location: Upper Chest, Laterality: Right MEDICAL/SURGICAL HISTORY: Anemia. Chronic obstructive pulmonary disease. Hypertension. Lung cancer, CAD, Fatty liver, Lupus, CVA, Chronic pain, Osteoporosis, Gastric ulcer, Pelvic mass, Pneumot horax after biopsy Hysterectomy. Fundoplication, Removal of ovary, Lung biopsy COMPARISON: No prior exams available for comparison. FLUORO TIME (min): IMAGE SERIES: 0 ACCESS SITE: SEDATION TIME (min): 30 CONTRAST (cc): MEDICATION(S): 2MG lorazepam (Ativan) IV 50MCG fentanyl (Sublimaze) IV DEVICE(S): PROCEDURE: 1. Removal of Aoiupi-x-xeiy. 2. Conscious sedation with continuous EKG and oximetry monitoring. Clinical history: The patient underwent Jdnzoc-m-Xzko placement 05/18/2018. The patient returned to [facility] ED post procedure. There is a small amount of hemorrhage noted pressure was held. The patient was r eevaluated 05/19/2018. There was questionable opening of the lateral margin of the port pocket. The pa tient was reassessed 05/20/2018. At this point there did appear to be a small opening along the latera l margin of the port pocket with a small amount of serous drainage. The decision was made to remove t he port from the pocket. The risk, benefits and potential complications of Qexzah-w-Ewyy removal were discussed. Written cons ent was obtained. The patient was placed supine. The chest wall was prepped in sterile fashion. Full sterile techniqu e was used, including cap, mask, sterile gloves and gown, and a large sterile sheet. Hand hygiene an d 2% chlorhexidine and/or Betadine/alcohol prep was utilized per protocol for cutaneous antisepsis. The skin and subcutaneous tissues were infiltrated with local anesthetic solution. A small incision w as made, the subcutaneous pocket was opened. The port was dissected from the subcutaneous tissues and easily removed in one piece. The pocket incision was closed with subcuticular Vicryl suture. Steri -Strips were applied. Conscious sedation was performed with the prescribed dosages and duration as above in the presence of an independent trained radiology nurse to assist in the monitoring of the patient. EKG and oximetry remained stable throughout the procedure. The patient tolerated the procedure well and there were no complications. The patient was sent to post anesthesia recovery in stable condition. CONCLUSION: 1. Uncomplicated port removal as above. Electronically signed by: Sam Chester MD 05/20/2018 4:31 PM EDT
--- NOTE | 2018-05-20 16:55 | P.PN ---
Subjective Interval history: Patient is seen sitting up in bed. Tells me that she is having headaches primarily focused in her right temporal region. Describes them as both stabbing and squeezing. No vision changes. No syncope or dizziness. Also is complaining of a "pulling" sensation through the right side of her neck. No nausea vomiting or diarrhea. No significant shortness of breath. Normal urination and bowel movements. Port continues to leak serosanguineous fluid. Pressure dressing in place. Physical Exam Vital signs: Vital Signs 05/19/18 17:29 05/19/18 19:04 05/19/18 19:14 Temperature 98.5 F 98.5 F Pulse Rate 87 80 74 Respiratory Rate 16 19 Blood Pressure 170/74 H 111/53 L Pulse Oximetry 97 97 05/19/18 19:15 05/19/18 21:25 05/19/18 22:30 Temperature Pulse Rate Respiratory Rate 18 17 Blood Pressure Pulse Oximetry 95 05/20/18 01:42 05/20/18 04:00 05/20/18 04:53 Temperature 98.9 F Pulse Rate 83 Respiratory Rate 18 18 17 Blood Pressure 115/61 Pulse Oximetry 95 05/20/18 07:39 05/20/18 11:00 05/20/18 11:23 Temperature 98.9 F 99.3 F Pulse Rate 92 H 81 Respiratory Rate 12 8 L 16 Blood Pressure 188/80 H 150/67 H Pulse Oximetry 98 95 05/20/18 14:49 Temperature 99.2 F Pulse Rate 78 Respiratory Rate 20 Blood Pressure 150/78 H Pulse Oximetry 97 Intake & Output 05/19/18 05/20/18 05/20/18 18:59 06:59 18:59 Intake Total 1240 / 1240 Output Total 0 / 0 0 / 0 Balance 0 / 0 1240 / 1240 Weight 77.111 kg Intake: IV 1000 / 1000 NS Inj 1,000 ML @ 100 mls/hr IV 1000 / 1000 .CONT .Q10H BUTCH Rx#:[id number] Oral 240 / 240 Output: Urine 0 / 0 0 / 0 Other: # Voids 2 Date of Last Bowel Movement 05/18/08 Narrative: GENERAL: Well-nourished, well-developed adult female in no obvious distress. SKIN: Warm and dry. Incision above right clavicle with Steri-Strip in place. Clean and dry. Pressure dressing to right chest port. HEAD: Atraumatic. Normocephalic. CARDIOVASCULAR: Regular rate and rhythm. RESPIRATORY: No accessory muscle use. Clear to auscultation. Breath sounds equal bilaterally. GASTROINTESTINAL: Abdomen soft, non-tender, non-distended. Positive bowel sounds. MUSCULOSKELETAL: Extremities without clubbing, cyanosis, or edema. No obvious deformities. NEUROLOGICAL: Awake and alert. No obvious cranial nerve deficits. Motor grossly within normal limits. Normal speech. PSYCHIATRIC: Appropriate mood and affect; insight and judgment good. sad. Results - Labs CBC & Chem 7: 05/20/18 06:05 05/20/18 06:05 Laboratory Results - last 24 hr 05/20/18 05/20/18 06:05 06:05 WBC 8.2 RBC 4.59 Hgb 9.6 L Hct 31.9 L MCV 69.5 L MCH 21.0 L MCHC 30.2 L RDW 19.0 H Plt Count 255 MPV 8.2 Neut % (Auto) 67.1 Lymph % (Auto) 22.9 [place] % (Auto) 7.0 Eos % (Auto) 2.6 Baso % (Auto) 0.4 Neut # (Auto) 5.5 Lymph # (Auto) 1.9 [place] # (Auto) 0.6 Eos # (Auto) 0.2 Baso # (Auto) 0.0 WBC Differential . Differential Comment Auto diff final Sodium 143 Potassium 3.9 Chloride 106 Carbon Dioxide 32.1 H Anion Gap 5 BUN 13 Creatinine 0.78 Estimated GFR 73 L Random Glucose 98 Calcium 8.4 L - Imaging Impressions Port Line Revision 05/20/18 00:00 CONCLUSION: 1. Uncomplicated port removal as above. Assessment and Plan - Plan Patient is a 67-year-old female who presents to the emergency room due to bleeding from right chest port which was placed earlier in the day by interventional radiology. She was recently diagnosed with advanced lung cancer. Past medical history includes anemia, anxiety, COPD, ulcer, heart disease, hypertension, fatty liver, lupus, osteoarthritis, osteoporosis, CVA and chronic pain. Bleeding from port site -Under evaluation by interventional radiology -Currently controlled; monitor H&H and INR -IR planned reevaluation on 05/21 Headache -MRI ordered to evaluate -concern for metastases due to known lung cancer. Lung cancer -Oncology consulted; appreciate assistance -oncology has recommended that she can be discharged home for outpatient follow-up if the bleeding stops from the port site. Acute pain with underlying chronic pain -Pain medication as indicated; Eforsce database consulted. Discussed with: Patient, nurse, Dr. Nuno Discharge plan: likely home
--- NOTE | 2018-05-20 17:55 | P.PNONC ---
Subjective Interval history: Late entry. I saw patient in the morning. She was still complaining of bruising around the port site. She still has diffuse joint ache and muscle ache. Objective Vital Signs/Intake & Output: Vital Signs 05/19/18 19:04 05/19/18 19:14 05/19/18 19:15 Temperature 98.5 F Pulse Rate 80 74 Respiratory Rate 19 18 Blood Pressure 111/53 L Pulse Oximetry 97 05/19/18 21:25 05/19/18 22:30 05/20/18 01:42 Temperature Pulse Rate Respiratory Rate 17 18 Blood Pressure Pulse Oximetry 95 05/20/18 04:00 05/20/18 04:53 05/20/18 07:39 Temperature 98.9 F 98.9 F Pulse Rate 83 92 H Respiratory Rate 18 17 12 Blood Pressure 115/61 188/80 H Pulse Oximetry 95 98 05/20/18 11:00 05/20/18 11:23 05/20/18 14:49 Temperature 99.3 F 99.2 F Pulse Rate 81 78 Respiratory Rate 8 L 16 20 Blood Pressure 150/67 H 150/78 H Pulse Oximetry 95 97 Intake & Output 05/19/18 05/20/18 05/20/18 18:59 06:59 18:59 Intake Total 1240 / 1240 Output Total 0 / 0 0 / 0 Balance 0 / 0 1240 / 1240 Weight 77.111 kg Intake: IV 1000 / 1000 NS Inj 1,000 ML @ 100 mls/hr IV 1000 / 1000 .CONT .Q10H [facility] Rx#:[id number] Oral 240 / 240 Output: Urine 0 / 0 0 / 0 Other: # Voids 2 Date of Last Bowel Movement 05/18/08 Result Diagrams: 05/20/18 06:05 05/20/18 06:05 Laboratory Results: Laboratory Results - last 24 hr 05/20/18 05/20/18 06:05 06:05 WBC 8.2 RBC 4.59 Hgb 9.6 L Hct 31.9 L MCV 69.5 L MCH 21.0 L MCHC 30.2 L RDW 19.0 H Plt Count 255 MPV 8.2 Neut % (Auto) 67.1 Lymph % (Auto) 22.9 Real % (Auto) 7.0 Eos % (Auto) 2.6 Baso % (Auto) 0.4 Neut # (Auto) 5.5 Lymph # (Auto) 1.9 Real # (Auto) 0.6 Eos # (Auto) 0.2 Baso # (Auto) 0.0 WBC Differential . Differential Comment Auto diff final Sodium 143 Potassium 3.9 Chloride 106 Carbon Dioxide 32.1 H Anion Gap 5 BUN 13 Creatinine 0.78 Estimated GFR 73 L Random Glucose 98 Calcium 8.4 L Imaging Studies: Impressions Port Line Revision 05/20/18 00:00 CONCLUSION: 1. Uncomplicated port removal as above. Medications: Active Medications Generic Name Dose Route Start Last Admin Trade Name Freq PRN Reason Stop Dose Admin Acetaminophen 650 mg 05/19/18 12:07 05/20/18 00:14 Tylenol PO 650 mg Q6HR PRN Administration PAIN SCALE 1 TO 2 Amlodipine Besylate 5 mg 05/20/18 09:00 05/20/18 08:30 Norvasc PO 5 mg DAILY BUTCH Administration Hydromorphone HCl 1 mg 05/19/18 18:20 05/20/18 14:20 Dilaudid Pf Inj IV.PUSH 1 mg Q3H PRN Administration PAIN 6-10;IF UNABLE TO TAKE PO Sodium Chloride 1,000 mls @ 100 mls/hr 05/19/18 06:45 05/20/18 14:21 Ns Inj IV.CONT 0 mls/hr .Q10H BUTCH Infusion Lisinopril 20 mg 05/20/18 09:00 05/20/18 08:33 Prinivil PO 20 mg DAILY BUTCH Administration Ondansetron HCl 4 mg 05/19/18 06:35 05/20/18 11:00 Zofran Inj IV.PUSH 4 mg Q6H PRN Administration NAUSEA OR VOMITING Oxycodone/Acetaminophen 1 tab 05/19/18 12:07 05/19/18 12:22 Percocet 10/325 Mg PO 1 tab Q6H PRN Administration PAIN SCALE 6 TO 10 Objective Remarks: GENERAL: Well-nourished, well-developed patient. Appear weak SKIN: Warm and dry. HEAD: Normocephalic. EYES: No scleral icterus. No injection or drainage. NECK: Supple, trachea midline. No JVD or lymphadenopathy. LYMPHATIC: No adenopathy. CARDIOVASCULAR: Regular rate and rhythm without murmurs. RESPIRATORY: Breath sounds equal bilaterally. No accessory muscle use. She is on oxygen GASTROINTESTINAL: Abdomen soft, non-tender, nondistended. EXTREMITIES: No cyanosis, or edema. MUSCULOSKELETAL: Adequate muscle tone. NEUROLOGICAL: No obvious focal deficit. Awake, alert, and oriented x3. PSYCHIATRIC: Appropriate mood and affect; insight and judgment normal. Assessment/Plan (1) Cancer of left lung Code(s): C34.92 - Malignant neoplasm of unspecified part of left bronchus or lung Status: Acute (2) Encounter for care related to Port-a-Cath Code(s): Z45.2 - Encounter for adjustment and management of vascular access device Status: Acute - Plan 1. Locally advanced non-small cell lung cancer, possibly a stage T3 N3c. PET scan in April showed 5.4 cm mass in left upper lobe with hypermetabolic left hilar adenopathy with 1.1 cm mildly hypermetabolic lymph node in the left supraclavicular area. 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 On presentation, she had a repeat CT of the chest which showed a lung mass that measured 5.6 cm with left hilar lymph node that measured 2.3 cm. There was no clear evidence of supraclavicular lymph node. The plan is to treat her with concurrent radiation and chemotherapy if she has good pulmonary function. She is going to have a pulmonary function test later this week. She also will follow up with Radiation Oncology. May 20, 2018. No new pulmonary symptom. 2. Bleeding around the port site. Checked in with the nursing staff. The nursing staff stated that the patient still had oozing around the port site this morning. We will consult Interventional Radiology for further evaluation and we will also check coagulation studies. 05/20/2018. There is still oozing from the port. Interventional radiology has been consulted for evaluation. 3. Chronic pain. PET scan did not show any obvious bone metastasis. 4. Chronic obstructive pulmonary disease. She is on oxygen. PLAN: 1. Await interventional radiology evaluation of the port. 2. The patient can be discharged home once cleared by interventional radiology. 3. She will continue workup and treatment of lung cancer as an outpatient.
[2018-05-21] MEDS: Sod Chloride 0.9% Inj 1,000 ML IV.CONT SCH ×2 (00:33→08:14)
[2018-05-21] MEDS: HYDROmorphone PF Inj 2 MG/ML Vial IV.PUSH PRN ×2 (01:36→04:44)
[2018-05-21] MEDS: amLODIPine 5 MG Tablet PO SCH (08:32)
[2018-05-21] MEDS: oxyCODONE/Acetaminophen 10/325 Tablet PO PRN (08:32)
[2018-05-21] MEDS: Lisinopril 20 MG Tablet PO SCH (08:33)
--- NOTE | 2018-05-21 09:52 | CT ---
EXAM DATE: 05/21/2018 9:46 AM EDT AGE/SEX: 67 years / Female INDICATIONS: New headache, with history of lung cancer CLINICAL DATA: This is the patient's initial encounter. Patient reports that signs and symptoms have been present for 2 days and indicates a pain score of 5/10. MEDICAL/SURGICAL HISTORY: Chronic obstructive pulmonary disease. Hypertension. Carcinoma, lung. N one. RADIATION DOSE: 34.43 CTDI (mGy) COMPARISON: [facility], CT BRAIN W/O CONTRAST, 10/08/2016. . TECHNIQUE: Axial images of the head were acquired without contrast and after intravenous administrat ion of 95 ml Omnipaque 350 (iohexol) nonionic water-soluble contrast as a single exam dose. Using automated exposure control and adjustment of the mA and/or kV according to patient size, radiation do se was kept as low as reasonably achievable to obtain optimal diagnostic quality images. DICOM forma t image data is available electronically for review and comparison. FINDINGS: Cerebrum: The ventricles are normal for age. No evidence of midline shift, mass lesion, hemorrhage or acute infarction. No extraaxial fluid collections are seen. Posterior Fossa: The cerebellum and brainstem are intact. The 4th ventricle is midline. The cerebe llopontine angle is unremarkable. Extracranial: The visualized portion of the orbits is intact. Skull: The calvaria is intact. No evidence of skull fracture. Post Contrast: No abnormal areas of parenchymal or dural enhancement. No evidence of blood-brain ba rrier breakdown. CONCLUSION: 1. No acute intracranial abnormality identified. Electronically signed by: Sam Chester MD 05/21/2018 9:50 AM EDT
[2018-05-21 11:33] VITALS: BP 107/56; PULSE 90; RESP 18; TEMP 99.1; O2SAT 94
--- NOTE | 2018-05-21 13:36 | P.PNONC ---
Subjective Interval history: Patient's port was removed yesterday. Her neck pain and chest pain has improved. She remains afebrile. She still has diffuse joint ache. Shortness of breath is stable. Objective Vital Signs/Intake & Output: Vital Signs 05/20/18 14:49 05/20/18 16:00 05/21/18 00:00 Temperature 99.2 F 98.5 F 98.8 F Pulse Rate 78 94 H 89 Respiratory Rate 20 16 16 Blood Pressure 150/78 H 131/67 117/59 L Pulse Oximetry 97 95 97 05/21/18 03:34 05/21/18 07:40 05/21/18 11:31 Temperature 98.2 F 99.1 F Pulse Rate 87 91 H 90 Respiratory Rate 16 16 18 Blood Pressure 142/73 H 116/40 L 107/56 L Pulse Oximetry 93 L 97 94 L Intake & Output 05/20/18 05/21/18 05/21/18 18:59 06:59 18:59 Intake Total 50 / 50 250 / 250 Balance 50 / 50 250 / 250 Weight 77 kg Intake: IV 50 / 50 Ancef 1 GM Premix Inj 1 gm In 50 / 50 50 ml @ 0 mls/hr IV.SIG .STK- [facility] Rx#:[id number] Oral 250 / 250 Other: # Urine Diapers 2 Date of Last Bowel Movement 05/18/08 Result Diagrams: 05/20/18 06:05 05/20/18 06:05 Imaging Studies: Impressions Port Line Revision 05/20/18 00:00 CONCLUSION: 1. Uncomplicated port removal as above. Head CT 05/21/18 00:00 CONCLUSION: 1. No acute intracranial abnormality identified. Medications: Active Medications Generic Name Dose Route Start Last Admin Trade Name Freq PRN Reason Stop Dose Admin Acetaminophen 650 mg 05/19/18 12:07 05/20/18 00:14 Tylenol PO 650 mg Q6HR PRN Administration PAIN SCALE 1 TO 2 Amlodipine Besylate 5 mg 05/20/18 09:00 05/21/18 08:32 Norvasc PO 5 mg DAILY BUTCH Administration Hydromorphone HCl 1 mg 05/19/18 18:20 05/21/18 04:44 Dilaudid Pf Inj IV.PUSH 1 mg Q3H PRN Administration PAIN 6-10;IF UNABLE TO TAKE PO Sodium Chloride 1,000 mls @ 100 mls/hr 05/19/18 06:45 05/21/18 08:14 Ns Inj IV.CONT Not Given .Q10H BUT[facility] Lisinopril 20 mg 05/20/18 09:00 05/21/18 08:33 Prinivil PO 20 mg DAILY BUTCH Administration Ondansetron HCl 4 mg 05/19/18 06:35 05/21/18 08:31 Zofran Inj IV.PUSH 4 mg Q6H PRN Administration NAUSEA OR VOMITING Oxycodone/Acetaminophen 1 tab 05/19/18 12:07 05/21/18 08:32 Percocet 10/325 Mg PO 1 tab Q6H PRN Administration PAIN SCALE 6 TO 10 Objective Remarks: GENERAL: Well-nourished, well-developed patient. Frail. SKIN: Warm and dry. Dressing on the right chest wall is dry HEAD: Normocephalic. EYES: No scleral icterus. No injection or drainage. NECK: Supple, trachea midline. No JVD or lymphadenopathy. LYMPHATIC: No adenopathy. CARDIOVASCULAR: Regular rate and rhythm without murmurs. RESPIRATORY: Breath sounds equal bilaterally. No accessory muscle use. GASTROINTESTINAL: Abdomen soft, non-tender, nondistended. EXTREMITIES: No cyanosis, or edema. MUSCULOSKELETAL: Adequate muscle tone. NEUROLOGICAL: No obvious focal deficit. Awake, alert, and oriented x3. PSYCHIATRIC: Appropriate mood and affect; insight and judgment normal. Assessment/Plan (1) Cancer of left lung Code(s): C34.92 - Malignant neoplasm of unspecified part of left bronchus or lung Status: Acute (2) Encounter for care related to Port-a-Cath Code(s): Z45.2 - Encounter for adjustment and management of vascular access device Status: Acute - Plan 1. Locally advanced non-small cell lung cancer, possibly a stage T3 N3c. PET scan in April showed 5.4 cm mass in left upper lobe with hypermetabolic left hilar adenopathy with 1.1 cm mildly hypermetabolic lymph node in the left supraclavicular area. 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 On presentation, she had a repeat CT of the chest which showed a lung mass that measured 5.6 cm with left hilar lymph node that measured 2.3 cm. There was no clear evidence of supraclavicular lymph node. The plan is to treat her with concurrent radiation and chemotherapy if she has good pulmonary function. She is going to have a pulmonary function test later this week. She also will follow up with Radiation Oncology. May 20, 2018. No new pulmonary symptom. 2. Bleeding around the port site. Checked in with the nursing staff. The nursing staff stated that the patient still had oozing around the port site this morning. We will consult Interventional Radiology for further evaluation and we will also check coagulation studies. 05/20/2018. There is still oozing from the port. Interventional radiology has been consulted for evaluation. May 21, 2018. The port was removed. No bleeding noted. She will need a new port placed but that can be done as outpatient for chemotherapy administration. 3. Chronic pain. PET scan did not show any obvious bone metastasis. 4. Chronic obstructive pulmonary disease. She is on oxygen. PLAN: 1. Follow-up in oncology clinic. 2. She is going to need a new port placement for chemotherapy administration But that can be done as outpatient. 3. She can be discharged from oncology standpoint.
--- NOTE | 2018-05-21 14:18 | P.PN ---
Subjective Interval history: Patient is seen lying in bed. She denies any shortness of breath or chest pain. Area where her port was removed is tender. Dressing is in place with no drainage. Headache has improved but is still there; has been mildly responsive to medication. No nausea or vomiting or diarrhea. Tolerating meals. Normal urination. Physical Exam Vital signs: Vital Signs 05/20/18 14:49 05/20/18 16:00 05/21/18 00:00 Temperature 99.2 F 98.5 F 98.8 F Pulse Rate 78 94 H 89 Respiratory Rate 20 16 16 Blood Pressure 150/78 H 131/67 117/59 L Pulse Oximetry 97 95 97 05/21/18 03:34 05/21/18 07:40 05/21/18 11:31 Temperature 98.2 F 99.1 F Pulse Rate 87 91 H 90 Respiratory Rate 16 16 18 Blood Pressure 142/73 H 116/40 L 107/56 L Pulse Oximetry 93 L 97 94 L Intake & Output 05/20/18 05/21/18 05/21/18 18:59 06:59 18:59 Intake Total 50 / 50 250 / 250 Balance 50 / 50 250 / 250 Weight 77 kg Intake: IV 50 / 50 Ancef 1 GM Premix Inj 1 gm In 50 / 50 50 ml @ 0 mls/hr IV.SIG .STK- [facility] Rx#:[id number] Oral 250 / 250 Other: # Urine Diapers 2 Date of Last Bowel Movement 05/18/08 Narrative: GENERAL: Well-nourished, well-developed adult female in no obvious distress. SKIN: Warm and dry. Incision above right clavicle with Steri-Strip in place. Clean and dry. Pressure dressing to right chest wall; port removed. HEAD: Atraumatic. Normocephalic. CARDIOVASCULAR: Regular rate and rhythm. RESPIRATORY: No accessory muscle use. Clear to auscultation. Breath sounds equal bilaterally. GASTROINTESTINAL: Abdomen soft, non-tender, non-distended. Positive bowel sounds. MUSCULOSKELETAL: Extremities without clubbing, cyanosis, or edema. No obvious deformities. NEUROLOGICAL: Awake and alert. No obvious cranial nerve deficits. Motor grossly within normal limits. Normal speech. PSYCHIATRIC: Appropriate mood and affect; insight and judgment good. sad. Results - Labs CBC & Chem 7: 05/20/18 06:05 05/20/18 06:05 - Imaging Impressions Port Line Revision 05/20/18 00:00 CONCLUSION: 1. Uncomplicated port removal as above. Head CT 05/21/18 00:00 CONCLUSION: 1. No acute intracranial abnormality identified. Assessment and Plan - Plan Patient is a 67-year-old female who presents to the emergency room due to bleeding from right chest port which was placed earlier in the day by interventional radiology. She was recently diagnosed with advanced lung cancer. Past medical history includes anemia, anxiety, COPD, ulcer, heart disease, hypertension, fatty liver, lupus, osteoarthritis, osteoporosis, CVA and chronic pain. Bleeding from port site -IR removed port 05/21; will try to place another as outpatient in future. Headache -MRI ordered to evaluate -concern for metastases due to known lung cancer. Unable to do MRI due to questionable magnet(?) placement from fundoplication - CT done as alternative showed no concerning images were acute changes. Lung cancer -Oncology consulted; appreciate assistance -oncology has recommended that she can be discharged home for outpatient follow-up if the bleeding stops from the port site. Oncology has cleared for discharge Acute pain with underlying chronic pain -Pain medication as indicated; [employer] database consulted. Discussed with: Patient, nurse, Dr. Nuno Discharge plan: Home with home health
--- NOTE | 2018-05-21 14:25 | P.DCO ---
- Home Health Nursing Order: Medical education, Signs/symptoms of disease process, Medication education-adverse effect, Wound care and dressing changes, Nursing assessment with vital signs - Certification I have seen patient Teresa Robertson on 05/21/18. My clinical findings support the need for the requested home health care services because: Patient has SOB, Deconditioned with increased weakness, Limited ability to care for self, Impaired cognition/judgement I certify that my clinical findings support that this patient is homebound because: Impaired cognitive ability/safety, Unsafe to leave home unassisted
--- NOTE | 2018-05-21 14:42 | P.DS ---
Date of admission: 05/19/18 06:27 Primary care physician: PROVIDER NON STAFF Attending physician on discharge: Tommy Nuno Anticipated date of discharge: 05/21/18 Brief History from admission: Patient is a 67-year-old female who presents to the emergency room due to bleeding from right chest port which was placed earlier in the day by interventional radiology. She was recently diagnosed with advanced lung cancer. Past medical history includes anemia, anxiety, COPD, ulcer, heart disease, hypertension, fatty liver, lupus, osteoarthritis, osteoporosis, CVA and chronic pain. She is seen sitting up in bed after evaluation by IR. Port is no longer bleeding and has pressure dressing in place. She tells me that she has a lot of pain much of which is chronic however she is also experiencing some pain in the left side of her neck at her biopsy incision site. Denies any chest pain or shortness of breath. No nausea vomiting or diarrhea. She is very sad and upset by her diagnosis of cancer. DS: Diagnosis - Discharge Diagnosis (1) Deficient knowledge of care after discharge Status: Acute (2) Potential for self care deficit Status: Acute (3) Deficient knowledge of wound care Status: Acute (4) Wound drainage Status: Acute (5) Encounter for care related to Port-a-Cath Status: Acute (6) Cancer of left lung Status: Acute DS: Summary Hospital Course: Patient is a 67-year-old female who presents to the emergency room due to bleeding from right chest port which was placed earlier in the day by interventional radiology. She was recently diagnosed with advanced lung cancer. Past medical history includes anemia, anxiety, COPD, ulcer, heart disease, hypertension, fatty liver, lupus, osteoarthritis, osteoporosis, CVA and chronic pain. IR removed port 05/21; will try to place another as outpatient in future. While in observation patient began complaining of a new onset headache. MRI ordered to evaluate due to concern for metastases due to known lung cancer. Unable to do MRI due to questionable magnet(?) placement from fundoplication -CT done as alternative showed no concerning images or acute changes. Oncology has recommended that she can be discharged home for outpatient follow-up and future outpt port placement. - Time Spent with Patient Total time spent providing and/or coordinating discharge services: Less than 30 minutes - Quality: VTE Deep Vein Thrombosis/Pulmonary Embolism Present on Admission: No Exam Vital signs: Vital Signs 05/20/18 14:49 05/20/18 16:00 05/21/18 00:00 Temperature 99.2 F 98.5 F 98.8 F Pulse Rate 78 94 H 89 Respiratory Rate 20 16 16 Blood Pressure 150/78 H 131/67 117/59 L Pulse Oximetry 97 95 97 05/21/18 03:34 05/21/18 07:40 05/21/18 11:31 Temperature 98.2 F 99.1 F Pulse Rate 87 91 H 90 Respiratory Rate 16 16 18 Blood Pressure 142/73 H 116/40 L 107/56 L Pulse Oximetry 93 L 97 94 L Intake & Output 05/20/18 05/21/18 05/21/18 18:59 06:59 18:59 Intake Total 50 / 50 250 / 250 Balance 50 / 50 250 / 250 Weight 77 kg Intake: IV 50 / 50 Ancef 1 GM Premix Inj 1 gm In 50 / 50 50 ml @ 0 mls/hr IV.SIG .STK- [facility] Rx#:[id number] Oral 250 / 250 Other: # Urine Diapers 2 Date of Last Bowel Movement 05/18/08 Narrative: GENERAL: Well-nourished, well-developed adult female in no obvious distress. SKIN: Warm and dry. Incision above right clavicle with Steri-Strip in place. Clean and dry. Pressure dressing to right chest wall; port removed. HEAD: Atraumatic. Normocephalic. CARDIOVASCULAR: Regular rate and rhythm. RESPIRATORY: No accessory muscle use. Clear to auscultation. Breath sounds equal bilaterally. GASTROINTESTINAL: Abdomen soft, non-tender, non-distended. Positive bowel sounds. MUSCULOSKELETAL: Extremities without clubbing, cyanosis, or edema. No obvious deformities. NEUROLOGICAL: Awake and alert. No obvious cranial nerve deficits. Motor grossly within normal limits. Normal speech. PSYCHIATRIC: Appropriate mood and affect; insight and judgment good. sad. Results Procedures completed during hospitalization: port removal - Impressions ITS Impressions Abdomen/Pelvis CT 05/19/18 00:00 CONCLUSION: 1. Minimal dependent atelectasis in the lungs. Fatty infiltration of the liver. Small hiatal hernia. Colonic diverticula without diverticulitis. No evidence for metastatic disease to the abdomen and pelvis. Chest CT 05/19/18 00:00 CONCLUSION: 1. 5.6 cm mass in left upper lobe with left hilar silvia metastasis. Infuse-a- Port tip in right atrium. Port Line Revision 05/20/18 00:00 CONCLUSION: 1. Uncomplicated port removal as above. Head CT 05/21/18 00:00 CONCLUSION: 1. No acute intracranial abnormality identified. Discharge Plan - Discharge Disposition Patient Disposition: /Home Health Service - Discharge Condition Condition: Stable - Discharge Order Discharge Orders: Discharge Order (Routine); Ordered 05/21/18 Ordered By: Linda Asher - Physicians Team Primary Care Provider: NON STAFF,PROVIDER Attending Provider: Tommy Nuno Other Providers: Rohit Melendez MD ; Olegario Melvin
[2018-05-21] MEDS: Acetaminophen 325 MG Tablet PO PRN (15:46)
== END 2018-05-21 16:34 | disposition home health service (06) ==
LOC: NEDA 18:10 → NEPC 18:10 → NEDH 05-19 10:45 → NEPGCP 05-19 16:51
PROVIDERS: ADMIT Hospitalist; ATTEND Hospitalist

== ENCOUNTER 2018-07-15 13:49 | Observation (INO) ==
--- NOTE | 2018-07-15 14:13 | ED ---
HPI General Chief complaint: Extremity Injury, Lower Stated complaint: SOB Time Seen by Provider: 07/15/18 13:51 History of Present Illness HPI narrative: 67-year-old female with a history of hypertension, CVA, squamous cell carcinoma of the left lung currently receiving chemotherapy and radiation therapy presents to the emergency department for evaluation of right leg pain and dizziness. The patient states that yesterday she started having a cramping pain in her right lower leg from the knee down to the foot. States that this has persisted since then. States that the pain in her right leg is aggravated with movement and palpation. Denies any injury or trauma to her leg. States that she also had some cramping of the left leg earlier today as well which has resolved. She states she does have paresthesias in her hands and feet bilaterally. She states that yesterday she was experiencing dizziness which resolved however has started again today. States that she feels dizzy, aggravated by movement. She is also complaining of a headache. She does complain of shortness of breath, states that she has had shortness of breath since she was diagnosed with her lung cancer in May, she wears oxygen at home. She states she has had nausea and dry heaving since yesterday. She denies any chest pain, abdominal pain, vomiting, diarrhea, black or bloody stool , weakness, fever, chills. Oncologist is Dr. Ladd. No other complaints. Related Data Home Medications Medication Instructions Recorded Confirmed amlodipine-benazepril 1 cap PO DAILY 05/18/18 07/15/18 hydrocodone-acetaminophen 1 tab PO Q6HR PRN 05/18/18 07/15/18 sulfamethoxazole-trimethoprim 1 tab PO DAILY 07/15/18 07/15/18 [Bactrim DS] Previous Rx's Medication Instructions Recorded ondansetron 4 mg PO Q6H PRN #30 tab 05/21/18 Allergies Allergy/AdvReac Type Severity Reaction Status Date / Time aspirin Allergy Severe Bleeding Verified 06/01/18 09:18 morphine Allergy Severe STS CAN'T Verified 06/01/18 09:18 BREATH, RASH vancomycin Allergy Intermediate severe Verified 06/01/18 09:18 itching and hives naproxen AdvReac Severe STS BLOOD Verified 06/01/18 09:18 IN URINE Review of Systems ROS: all other systems reviewed are negative PMFSH Social History Social History Substance History: No History of Abuse Second Hand Smoke Exposure: Yes Smoking Status: Current every day smoker Tobacco Type: Cigarettes How Often Do You Have a Drink Containing Alcohol: Never Recent Travel in [facility] within the Last 8 Weeks: No Recent Out of Country Travel within the Last 8 Weeks: No Exam Narrative Exam Narrative: GENERAL: Well-nourished and well-developed female patient in no acute distress, anxious appearing. SKIN: Warm and dry without any obvious rashes or lesions. HEAD: Normocephalic and atraumatic. EYES: No injection, drainage, or hyphema noted. PERRLA. EOMI. ENT: No nasal drainage noted. Oropharynx is clear. NECK: Supple and the trachea is midline. CARDIOVASCULAR: Regular rate and rhythm. RESPIRATORY: Breath sounds are equal bilaterally with no accessory muscle use, wheezing, rhonchi, or crackles. GASTROINTESTINAL: Abdomen is soft, non-tender, and nondistended. No hepatosplenomegaly. MUSCULOSKELETAL: Tenderness to palpation of right calf, pain in right knee and lower leg with range of motion exercises. No obvious deformities, swelling, cyanosis, or ecchymosis is present throughout the upper and lower extremities. Patient has full range of motion without any signs of neurovascular compromise. Distal pulses are 2+ throughout. Strength 5/5 upper and lower extremities and equal bilaterally. NEUROLOGICAL: Awake, alert, and oriented. Normal speech and gait. Cranial nerves are grossly intact. Course Initial Documented Vital Signs Pulse Rate 89 07/15/18 14:00 Respiratory Rate 18 07/15/18 14:00 Pulse Oximetry 98 07/15/18 14:00 Last Documented Vital Signs Pulse Rate 95 H 07/15/18 19:05 Respiratory Rate 16 07/15/18 19:05 Blood Pressure 105/54 L 07/15/18 19:05 Pulse Oximetry 99 07/15/18 19:05 Medical Decision Making [facility] Narrative Medical decision making narrative: 67-year-old female presents to the emergency department for evaluation of right lower leg pain and dizziness. Patient is afebrile, vital signs are stable. No focal neurologic deficits. She does have pain in the right lower leg with palpation and range of motion exercises. X- ray imaging of the right knee has been ordered and is pending. Bilateral ultrasounds to rule out DVT. IV access is obtained, labs been drawn and sent. Patient is placed on cardiac telemetry and pulse oximetry monitoring. Patient is very anxious appearing and is administered Ativan 1 mg IV. CBC shows mild anemia with hemoglobin 11.1, hematocrit 34.8. Platelet count is decreased at 134. Coags are unremarkable. Lactic acid is slightly elevated at 2.1. X-ray of the right knee shows moderate to severe patellofemoral and mild to moderate medial compartment degenerative osteoarthritis. No acute abnormalities. Chest x-ray shows left midlung airspace disease, this is the location of the patient's cancer. Ultrasound imaging of bilateral lower extremities is negative for DVT. CMP shows slightly elevated kidney function with creatinine 1.67, BUN 35, GFR 31. This is slightly above the patient's baseline. Head CT is negative for any acute abnormalities. Patient reassessed and still complaining of generalized weakness and dizziness. Orthostatics are positive. She is a cancer patient receiving chemo weekly, last dose 2 days ago. Her labs show she is dehydrated and she is feeling poorly therefore she will be kept in observation for IV hydration. I spoke with Dr. Amato [facility] who accepts patient to his service. Medical Screen Exam Complete: Yes Emergency Medical Condition: Yes Differential Diagnosis Differential Diagnosis: Electrolyte abnormality versus dehydration versus chemotherapy adverse reaction versus anxiety Lab Data Result diagrams: 07/15/18 14:30 07/15/18 14:30 Lab Results 07/15/18 07/15/18 07/15/18 Range/Units 14:30 14:30 14:30 WBC 4.5 (4.0-11.0) th/mm3 RBC 5.09 (4.00-5.30) mil/mm3 Hgb 11.1 L (11.6-15.3) gm/dL Hct 34.8 L (35.0-46.0) % MCV 68.4 L (80.0-100.0) fL MCH 21.9 L (27.0-34.0) pg MCHC 32.0 (32.0-36.0) % RDW 18.7 H (11.6-17.2) % Plt Count 134 L (150-450) th/mm3 MPV 8.3 (7.0-11.0) fL Neut % (Auto) 80.9 H (16.0-70.0) % Lymph % (Auto) 13.8 (9.0-44.0) % [place] % (Auto) 4.6 (0.0-8.0) % Eos % (Auto) 0.3 (0.0-4.0) % Baso % (Auto) 0.4 (0.0-2.0) % Neut # (Auto) 3.7 (1.8-7.7) th/mm3 Lymph # (Auto) 0.6 L (1.0-4.8) th/mm3 [place] # (Auto) 0.2 (0.0-0.9) th/mm3 Eos # (Auto) 0.0 (0.0-0.4) th/mm3 Baso # (Auto) 0.0 (0.0-0.2) th/mm3 WBC Differential . Differential Comment Auto diff final PT 9.8 (9.8-11.6) sec INR 1.0 Ratio APTT 20.8 L (23.4-31.7) sec Sodium 138 (136-145) meq/L Potassium 4.5 (3.5-5.1) meq/L Chloride 104 (98-107) meq/L Carbon Dioxide 22.8 (21.0-32.0) meq/L Anion Gap 11 (5-15) meq/L BUN 35 H (7-18) mg/dL Creatinine 1.67 H (0.50-1.00) mg/dL Estimated GFR 31 L (>89) mL/min Random Glucose 87 (74-106) mg/dL Lactic Acid (0.4-2.0) mmol/L Calcium 8.5 (8.5-10.1) mg/dL Magnesium 2.0 (1.5-2.5) mg/dL Total Bilirubin 0.4 (0.2-1.0) mg/dL AST 14 L (15-37) U/L ALT 20 (10-53) U/L Alkaline Phosphatase 101 (45-117) U/L Troponin I Less than 0.02 L (0.02-0.05) ng/mL Total Protein 8.7 H (6.4-8.2) g/dL Albumin 3.7 (3.4-5.0) g/dL Lipase 40 L (73-393) U/L Urine Color (Yellw/Straw) Urine Clarity (Clear) Urine pH (5.0-8.5) Ur Specific [place] (1.002-1.035) Urine Protein (Neg-Trace) mg/dL Urine Glucose (UA) (Negative) mg/dL Urine Ketones (Negative) mg/dL Urine Occult Blood (Negative) Urine Nitrate (Negative) Urine Bilirubin (Negative) Urine Urobilinogen (Less than 2) mg/dL Ur Leukocyte Esterase (Negative) Urine RBC (0-3) /hpf Urine WBC (0-5) /hpf Ur Squamous Epith Cells (0-5) /hpf Uric Acid Crystals (None) /hpf Hyaline Casts (0-3) /lpf Urine Mucus (Occasional) /lpf Micro UA Comment Ur Microscopic Review Urine Culture Comments 07/15/18 07/15/18 07/15/18 Range/Units 14:30 16:30 17:30 WBC (4.0-11.0) th/mm3 RBC (4.00-5.30) mil/mm3 Hgb (11.6-15.3) gm/dL Hct (35.0-46.0) % MCV (80.0-100.0) fL MCH (27.0-34.0) pg MCHC (32.0-36.0) % RDW (11.6-17.2) % Plt Count (150-450) th/mm3 MPV (7.0-11.0) fL Neut % (Auto) (16.0-70.0) % Lymph % (Auto) (9.0-44.0) % [place] % (Auto) (0.0-8.0) % Eos % (Auto) (0.0-4.0) % Baso % (Auto) (0.0-2.0) % Neut # (Auto) (1.8-7.7) th/mm3 Lymph # (Auto) (1.0-4.8) th/mm3 [place] # (Auto) (0.0-0.9) th/mm3 Eos # (Auto) (0.0-0.4) th/mm3 Baso # (Auto) (0.0-0.2) th/mm3 WBC Differential Differential Comment PT (9.8-11.6) sec INR Ratio APTT (23.4-31.7) sec Sodium (136-145) meq/L Potassium (3.5-5.1) meq/L Chloride (98-107) meq/L Carbon Dioxide (21.0-32.0) meq/L Anion Gap (5-15) meq/L BUN (7-18) mg/dL Creatinine (0.50-1.00) mg/dL Estimated GFR (>89) mL/min Random Glucose (74-106) mg/dL Lactic Acid 2.1 H 1.6 (0.4-2.0) mmol/L Calcium (8.5-10.1) mg/dL Magnesium (1.5-2.5) mg/dL Total Bilirubin (0.2-1.0) mg/dL AST (15-37) U/L ALT (10-53) U/L Alkaline Phosphatase (45-117) U/L Troponin I (0.02-0.05) ng/mL Total Protein (6.4-8.2) g/dL Albumin (3.4-5.0) g/dL Lipase (73-393) U/L Urine Color Yellow (Yellw/Straw) Urine Clarity Turbid H (Clear) Urine pH 5.0 (5.0-8.5) Ur Specific [place] 1.025 (1.002-1.035) Urine Protein 30 H (Neg-Trace) mg/dL Urine Glucose (UA) Negative (Negative) mg/dL Urine Ketones Negative (Negative) mg/dL Urine Occult Blood Negative (Negative) Urine Nitrate Negative (Negative) Urine Bilirubin Negative (Negative) Urine Urobilinogen Less than 2 (Less than 2) mg/dL Ur Leukocyte Esterase Negative (Negative) Urine RBC 3 (0-3) /hpf Urine WBC 2 (0-5) /hpf Ur Squamous Epith Cells 2 (0-5) /hpf Uric Acid Crystals Many H (None) /hpf Hyaline Casts 5 (0-3) /lpf Urine Mucus Few H (Occasional) /lpf Micro UA Comment Culture not ind Ur Microscopic Review Not Reportable Urine Culture Comments Culture not ind Imaging Data Radiologist's impression: Chest X-Ray 07/15/18 14:11 CONCLUSION: Left midlung airspace disease Right [id number]. COPD. Head CT 07/15/18 14:11 CONCLUSION: 1. Stable exam. 2. No evidence of acute infarct, hemorrhage, mass or edema. . Knee X-Ray 07/15/18 14:28 CONCLUSION: 1. 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 Venous Doppler Study 07/15/18 14:28 CONCLUSION: 1. No sonographic evidence for lower extremity DVT. Discharge Plan Discharge Disposition Patient Disposition: 30 Still Patient Discharge Details Diagnosis: Dehydration, Dizziness Physicians Team ED Provider: Atif Dooley ED Midlevel Provider: Karlene Priest Primary Care Provider: Olegario Melvin Attending Provider: Chu Amato Status ED Status: Admitted Observation Patient
--- NOTE | 2018-07-15 14:38 | XR ---
EXAM DATE: 07/15/2018 2:34 PM EST AGE/SEX: 67 years / Female INDICATIONS: Shortness of breath. CLINICAL DATA: This is the patient's initial encounter. Patient reports that signs and symptoms have been present for 1 day and indicates a pain score of 0/10. MEDICAL/SURGICAL HISTORY: . Anemia, Anxiety, Metastatic Lung Cancer, CAD,COPD, Gastric ulcer, H TN, Lupus, History of stroke, Migraine, Osteoarthritis, Rheumatoid arthritis. . Carpal tunnel surger y, Cataract removal, Implant spinal fusion, Hysterectomy. Infusaport. COMPARISON: [facility], XR CHEST PA AND LAT, 10/05/2015. . FINDINGS: Lungs are hyperinflated. Focal airspace disease is identified in the left midlung adjacent to the hil um. Lungs are otherwise clear. There is no evidence of pneumothorax. A right-sided [id number] is n oted. Heart and mediastinal structures are unremarkable. CONCLUSION: Left midlung airspace disease Right [id number]. COPD. Electronically signed by: Lazaro Skinner MD 07/15/2018 2:37 PM EST
[2018-07-15 14:47] LABS: Baso % (Auto) 0.4 % (0.0-2.0); Eos % (Auto) 0.3 % (0.0-4.0); Hematocrit 34.8 % (35.0-46.0); Hemoglobin 11.1 gm/dL (11.6-15.3); Lymph # (Auto) 0.6 th/mm3 (1.0-4.8); Lymph % (Auto) 13.8 % (9.0-44.0); Mean Corpuscular Hemoglobin 21.9 pg (27.0-34.0); Mean Corpuscular Volume 68.4 fL (80.0-100.0); Mean Platelet Volume 8.3 fL (7.0-11.0); Mono # (Auto) 0.2 th/mm3 (0.0-0.9); Mono % (Auto) 4.6 % (0.0-8.0); Neut # (Auto) 3.7 th/mm3 (1.8-7.7); Neut % (Auto) 80.9 % (16.0-70.0); Platelet Count 134 th/mm3 (150-450); Red Blood Count 5.09 mil/mm3 (4.00-5.30); Red Cell Distribution Width 18.7 % (11.6-17.2); White Blood Count 4.5 th/mm3 (4.0-11.0)
[2018-07-15 15:02] LABS: Activated Partial Thrombo Time 20.8 sec (23.4-31.7); Prothrombin Time 9.8 sec (9.8-11.6)
--- NOTE | 2018-07-15 15:12 | US ---
EXAM DATE: 07/15/2018 3:10 PM EST AGE/SEX: 67 years / Female INDICATIONS: Bilateral leg pain. CLINICAL DATA: This is the patient's initial encounter. Patient reports that signs and symptoms have been present for 1 day and indicates a pain score of 4/10. MEDICAL/SURGICAL HISTORY: Chronic obstructive pulmonary disease. Osteoporosis. Carcinoma, vahid g. Anemia. Anxiety. Ulcer. Pelvic mass. HTN. Lupus. Osteoarthritis. Stroke. Radiation therapy. Hyst erectomy. Cataract removal. COMPARISON: . TECHNIQUE: Venous ultrasound of both lower extremities was performed from the inguinal ligament to t he proximal calf. Real-time, color Doppler and spectral tracing, compression and augmentation techni ques were used. FINDINGS: Right Leg: Normal compression of the deep venous system from the inguinal region to the proximal julian f. No echogenic clot is seen. Normal response of the venous system to augmentation and respiration. Left Leg: Normal compression of the deep venous system from the inguinal region to the proximal calf . No echogenic clot is seen. Normal response of the venous system to augmentation and respiration. Other: None. CONCLUSION: 1. No sonographic evidence for lower extremity DVT. Electronically signed by: Abhijeet Carrillo MD 07/15/2018 3:11 PM EST
--- NOTE | 2018-07-15 15:33 | XR ---
EXAM DATE: 07/15/2018 3:23 PM EST AGE/SEX: 67 years / Female INDICATIONS: Patient complains of right knee pain. No known injury. CLINICAL DATA: This is the patient's initial encounter. Patient reports that signs and symptoms have been present for 2 weeks and indicates a pain score of 8/10. MEDICAL/SURGICAL HISTORY: . Anemia, Anxiety, Metastatic Lung Cancer, CAD,COPD, Gastric ulcer, H TN, Lupus, History of stroke, Migraine, Osteoarthritis, Rheumatoid arthritis. . Carpal tunnel surge ry, Cataract removal, Implant spinal fusion, Hysterectomy. Infusaport. COMPARISON: . FINDINGS: Bony structures are intact and in normal alignment. Mild to moderate joint space narrowing and osteop hyte formation in the medial compartment. Moderate to severe joint space narrowing and osteophyte for mation in the patellofemoral compartment.. Osseous density is normal. Soft tissues are unremarkable . No radiopaque foreign bodies seen. CONCLUSION: 1. Moderate to severe patellofemoral and mild to moderate medial compartment degenerative osteoarthr itis. Electronically signed by: Abhijeet Carrillo MD 07/15/2018 3:32 PM EST
[2018-07-15 15:44] LABS: Alanine Aminotransferase 20 U/L (10-53); Albumin 3.7 g/dL (3.4-5.0); Alkaline Phosphatase 101 U/L (45-117); Anion Gap 11 meq/L (5-15); Aspartate Aminotransferase 14 U/L (15-37); Blood Urea Nitrogen 35 mg/dL (7-18); Calcium 8.5 mg/dL (8.5-10.1); Carbon Dioxide 22.8 meq/L (21.0-32.0); Chloride 104 meq/L (98-107); Glomerular Filtration Rate 31 mL/min (>89); Glucose,Random 87 mg/dL (74-106); Lipase 40 U/L (73-393); Potassium 4.5 meq/L (3.5-5.1); Sodium 138 meq/L (136-145); Total Protein 8.7 g/dL (6.4-8.2)
[2018-07-15] MEDS ORDERED: Sodium Chlor 0.9% Inj 500 ML IV.SIG SCH ×2 (17:00→19:00)
[2018-07-15 17:04] LABS: Bilirubin,Urine Negative (Negative); Clarity,Urine Turbid (Clear); Color,Urine Yellow (Yellw/Straw); Glucose,Urine (UA) Negative (Negative); Hyaline Casts,Urine 5 /lpf (0-3); Leukocyte Esterase,Urine Negative (Negative); Mucus,Urine Few /lpf (Occasional); Nitrite,Urine Negative (Negative); Specific Gravity,Urine 1.025 (1.002-1.035); Squamous Epithelial Cell,Urine 2 /hpf (0-5); Uric Acid Crystals,Urine Many /hpf
--- NOTE | 2018-07-15 17:31 | CT ---
EXAM DATE: 07/15/2018 5:09 PM EST AGE/SEX: 67 years / Female INDICATIONS: Dizziness. CLINICAL DATA: This is the patient's initial encounter. Patient reports that signs and symptoms have been present for 1 day and indicates a pain score of 0/10. MEDICAL/SURGICAL HISTORY: Hypertension. Carcinoma, lung. Stroke. Lupus. None. RADIATION DOSE: 56.35 CTDI (mGy) COMPARISON: [facility] [place], CT HEAD W & W/O CONTRAST, 05/21/2018. . TECHNIQUE: CT of the head without contrast. Using automated exposure control and adjustment of the mA and/or kV according to patient size, radiation dose was kept as low as reasonably achievable to ob tain optimal diagnostic quality images. DICOM format image data is available electronically for revi ew and comparison. FINDINGS: Cerebrum: The ventricles are normal for age. No evidence of midline shift, mass lesion, hemorrhage or acute infarction. No extraaxial fluid collections are seen. Posterior Fossa: The cerebellum and brainstem are intact. The 4th ventricle is midline. The cerebe llopontine angle is unremarkable. Extracranial: The visualized portion of the orbits is intact. Skull: The calvaria is intact. No evidence of skull fracture. CONCLUSION: 1. Stable exam. 2. No evidence of acute infarct, hemorrhage, mass or edema. . Electronically signed by: Lazaro Skinner MD 07/15/2018 5:29 PM EST
[2018-07-15] MEDS ORDERED: Bisacodyl 10 MG Supp RECTAL PRN (19:59)
[2018-07-15] MEDS: Sod Chloride 0.9% Inj 1,000 ML IV.CONT SCH (23:22)
--- NOTE | 2018-07-15 23:33 | P.HPIM ---
History of Present Illness Primary Care Physician: [facility] Insurance History of Present Illness: 67-year-old female with a history of hypertension, reportedly CVA, however patient denies, squamous cell carcinoma of the left lung is currently on chemotherapy and radiation, following with Dr. Melendez. Patient is brought in to ER due to 1 day history of progressively worsening shortness of breath with exertion, fatigue, lightheadedness worse with standing, as well as right upper and right lower extremity weakness, constant vague cramping in both right upper and right lower extremities. She also reports a dull whole head headache over the past few days. Nausea has also worsened over the past few days. Denies any chest pain, fevers. Review of Systems All other systems reviewed negative except as stated in HPI PMFSH - History History Provided By: Patient - Medical History Medical History: Medical History (Last Reviewed 07/15/18 @ 23:30 by Chu Amato MD) Arthritis Back pain CHF (congestive heart failure) Cataract Diverticulitis GERD (gastroesophageal reflux disease) Head injury Heartburn Hiatal hernia Hx of headache Neck pain On home oxygen therapy Port catheter in place Renal disease Shortness of breath Thalassemia Anemia Anxiety COPD (chronic obstructive pulmonary disease) Gastric ulcer H/O pelvic mass Heart disease History of hysterectomy Hypertension Liver problem Lung cancer Lupus Osteoarthritis Osteoporosis Pneumothorax after biopsy Stroke - Surgical History Surgical History: Surgical History (Last Reviewed 07/15/18 @ 23:30 by Chu Amato MD) History of neck surgery History of fundoplication Hx of cataract surgery Hx of removal of ovary - Family History Family History: Family History (Last Reviewed 07/15/18 @ 23:30 by Chu Amato MD) Father Lung cancer Brother Prostate cancer Daughter Breast cancer - Social History I have reviewed the patient's Social History: Yes - Tobacco History Second Hand Smoke Exposure: No Tobacco Use In Past 30 Days: No Smoking Status: Former smoker Tobacco Type: Cigarettes - Alcohol History How Often Do You Have a Drink Containing Alcohol: Never - Substance Use History Substance History: No History of Abuse - Travel History Recent Travel in the [place] Within the Last 8 Weeks: No Recent Travel Out of the Country Within the Last 8 Weeks: No - Immunization History Tetanus Immunization: Unsure Medications and Allergies Active Medications: Active Medications Hydrocodone Bitart/Acetaminophen ([place] 10/325) 1 tab PO Q6H PRN PRN Reason: PAIN SCALE 1 TO 10 Last Admin: 07/15/18 20:33 Dose: 1 tab Al Hydroxide/Mg Hydroxide (Milk Of Magnesia Liq) 30 ml PO Q12H PRN PRN Reason: Mild Constipation Bisacodyl (Dulcolax Supp) 10 mg RECTAL DAILY PRN PRN Reason: SEVERE CONSITIPATION Sodium Chloride (Ns Inj) 1,000 mls @ 100 mls/hr IV.CONT .Q10H BUTCH Lactulose (Lactulose Liq) 30 ml PO DAILY PRN PRN Reason: SEVERE CONSITIPATION Ondansetron HCl (Zofran Odt) 4 mg PO Q6H PRN PRN Reason: Nausea Or Vomiting Sennosides (Senokot) 17.2 mg PO Q12H PRN PRN Reason: Moderate Constipation Trimethoprim/Sulfamethoxazole (Bactrim Ds) 1 tab PO DAILY BUTCH Allergies Allergy/AdvReac Type Severity Reaction Status Date / Time aspirin Allergy Severe Bleeding Verified 06/01/18 09:18 morphine Allergy Severe STS CAN'T Verified 06/01/18 09:18 BREATH, RASH vancomycin Allergy Intermediate severe Verified 06/01/18 09:18 itching and hives naproxen AdvReac Severe STS BLOOD Verified 06/01/18 09:18 IN URINE Home Medications Medication Instructions Recorded Confirmed Type amlodipine-benazepril 1 cap PO DAILY 05/18/18 07/15/18 History hydrocodone-acetaminophen 1 tab PO Q6HR PRN 05/18/18 07/15/18 History sulfamethoxazole-trimethoprim 1 tab PO DAILY 07/15/18 07/15/18 History [Bactrim DS] Exam Vital signs: Vital Signs 07/15/18 14:00 07/15/18 14:11 07/15/18 18:30 Temperature Pulse Rate 89 99 H Respiratory Rate 18 17 Blood Pressure 94/51 L Pulse Oximetry 98 96 100 07/15/18 19:05 07/15/18 22:04 07/15/18 22:14 Temperature 98.5 F Pulse Rate 95 H 94 H 87 Respiratory Rate 16 18 16 Blood Pressure 105/54 L 117/58 L 100/68 Pulse Oximetry 99 98 99 Intake & Output 07/15/18 07/15/18 07/16/18 06:59 18:59 06:59 Intake Total 500 / 500 500 / 500 Balance 500 / 500 500 / 500 Weight 84 kg Intake: IV 500 / 500 500 / 500 NS Inj 500 ML @ 1000 mls/hr IV. 500 / 500 500 / 500 SIG [facility] Rx#:[id number] Narrative: GENERAL: Patient sitting up in bed. Appears comfortable. Slightly dysarthric which reportedly is baseline. she is oriented x3. SKIN: Warm and dry. HEAD: Atraumatic. Normocephalic. EYES: Pupils equal and round. No scleral icterus. No injection or drainage. ENT: No nasal bleeding or discharge. Mucous membranes pink and moist. NECK: Trachea midline. No JVD. CARDIOVASCULAR: Regular rate and rhythm. RESPIRATORY: No accessory muscle use. Clear to auscultation. Breath sounds equal bilaterally. GASTROINTESTINAL: Abdomen soft, non-tender, nondistended. Hepatic and splenic margins not palpable. MUSCULOSKELETAL: Extremities without clubbing, cyanosis, or edema. No obvious deformities. NEUROLOGICAL: Awake and alert. No obvious cranial nerve deficits. Motor grossly within normal limits. 4 out of 5 strength on the right upper and right lower extremities, with 5 out of 5 strength on the left upper and left lower extremities. PSYCHIATRIC: Appropriate mood and affect; insight and judgment normal. Results - Labs CBC & Chem 7: 07/15/18 14:30 07/15/18 14:30 Labs: Short CBC 07/15/18 Range/Units 14:30 WBC 4.5 (4.0-11.0) th/mm3 Hgb 11.1 L (11.6-15.3) gm/dL Hct 34.8 L (35.0-46.0) % Plt Count 134 L (150-450) th/mm3 BMP 07/15/18 14:30 Sodium 138 Potassium 4.5 Chloride 104 Carbon Dioxide 22.8 BUN 35 H Creatinine 1.67 H Calcium 8.5 Cardiac Enzymes 07/15/18 Range/Units 14:30 Troponin I Less than 0.02 L (0.02-0.05) ng/mL Liver Function 07/15/18 Range/Units 14:30 Total Bilirubin 0.4 (0.2-1.0) mg/dL AST 14 L (15-37) U/L ALT 20 (10-53) U/L Alkaline Phosphatase 101 (45-117) U/L Albumin 3.7 (3.4-5.0) g/dL Urine 07/15/18 Range/Units 16:30 Urine Color Yellow (Yellw/Straw) Urine Clarity Turbid H (Clear) Urine pH 5.0 (5.0-8.5) Ur Specific [place] 1.025 (1.002-1.035) Urine Protein 30 H (Neg-Trace) mg/dL Urine Glucose (UA) Negative (Negative) mg/dL - Imaging Impressions Chest X-Ray 07/15/18 14:11 CONCLUSION: Left midlung airspace disease Right [id number]. COPD. Head CT 07/15/18 14:11 CONCLUSION: 1. Stable exam. 2. No evidence of acute infarct, hemorrhage, mass or edema. . Knee X-Ray 07/15/18 14:28 CONCLUSION: 1. 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 Venous Doppler Study 07/15/18 14:28 CONCLUSION: 1. No sonographic evidence for lower extremity DVT. Caprini VTE Risk Assessment Caprini VTE Risk Assessment: Moderate/High Risk (score >= 2) Caprini Risk Assessment Model: Point Value = 1 Point Value = 2 Point Value = 3 Point Value = 5 Age 41-60 Minor surgery BMI > 25 kg/m2 Swollen legs Varicose veins or History of unexplained or recurrent spontaneous Oral contraceptives or hormone replacement Sepsis (< 1 month) Serious lung disease, including pneumonia (< 1 month) Abnormal pulmonary function Acute myocardial infarction Congestive heart failure (< 1 month) History of inflammatory bowel disease Medical patient at bed rest Age 61-74 Arthroscopic surgery Major open surgery (> 45 min) Laparoscopic surgery (> 45 min) Malignancy Confined to bed (> 72 hours) Immobilizing plaster cast Central venous access Age >= 75 History of VTE Family history of VTE Factor V Leiden Prothrombin [id number] Lupus anticoagulant Anticardiolipin antibodies Elevated serum homocysteine Heparin-induced thrombocytopenia Other congenital or acquired thrombophilia Stroke (< 1 month) Elective arthroplasty Hip, pelvis, or leg fracture Acute spinal cord injury (< 1 month) Prophylaxis Regimen: Total Risk Factor Score Risk Level Prophylaxis Regimen 0-1 Low Early ambulation 2 Moderate Order ONE of the following: *Sequential Compression Device (SCD) *Heparin 5000 units SQ BID 3-4 Higher Order ONE of the following medications: *Heparin 5000 units SQ TID *Enoxaparin/Lovenox 40 mg SQ daily (WT < 150 kg, CrCl > 30 mL/min) *Enoxaparin/Lovenox 30 mg SQ daily (WT < 150 kg, CrCl > 10-29 mL/min) *Enoxaparin/Lovenox 30 mg SQ BID (WT < 150 kg, CrCl > 30 mL/min) AND/OR *Sequential Compression Device (SCD) 5 or more Highest Order ONE of the following medications: *Heparin 5000 units SQ TID (Preferred with Epidurals) *Enoxaparin/Lovenox 40 mg SQ daily (WT < 150 kg, CrCl > 30 mL/min) *Enoxaparin/Lovenox 30 mg SQ daily (WT < 150 kg, CrCl > 10-29 mL/min) *Enoxaparin/Lovenox 30 mg SQ BID (WT < 150 kg, CrCl > 30 mL/min) AND *Sequential Compression Device (SCD) Assessment and Plan - Plan //Right upper and right lower extremity weakness, pain. -Patient with right-sided weakness on exam. -CT brain with no acute findings. -We will order neurochecks, check MRI. Consult neurology. //Non-small cell lung cancer. Stage T3N3, IIIC -Followed by Dr. Melendez -She appears to be on prophylactic dose of Bactrim. Will continue. -Due to change in condition, will consult primary oncologist. //Acute kidney injury. Creatinine 1.67 from baseline of 0.971-week ago. On 07/13 creatinine 1.4 worsening over the past week. IV fluids. Continue to monitor. //Nausea. Likely secondary to dehydration, chemotherapy. IV hydration. Antiemetics. //History of hypertension. Blood pressures low on admission. Will hold off on home blood pressure meds and monitor. //Lightheadedness. Likely secondary to dehydration. IV fluids. Discussed Condition With: Patient, nurse, ED physician. H&P: Quality - VTE Deep Vein Thrombosis/Pulmonary Embolism Present on Admission: No
[2018-07-16] MEDS: Melatonin 5 MG Tablet PO PRN (00:55)
[2018-07-16 07:24] LABS: Baso % (Auto) 0.5 % (0.0-2.0); Eos % (Auto) 1.2 % (0.0-4.0); Hematocrit 29.8 % (35.0-46.0); Hemoglobin 9.2 gm/dL (11.6-15.3); Lymph # (Auto) 0.5 th/mm3 (1.0-4.8); Lymph % (Auto) 17.8 % (9.0-44.0); Mean Corpuscular Hemoglobin 21.6 pg (27.0-34.0); Mean Corpuscular Volume 69.9 fL (80.0-100.0); Mean Platelet Volume 8.4 fL (7.0-11.0); Mono # (Auto) 0.2 th/mm3 (0.0-0.9); Mono % (Auto) 5.9 % (0.0-8.0); Neut % (Auto) 74.6 % (16.0-70.0); Platelet Count 109 th/mm3 (150-450); Red Blood Count 4.26 mil/mm3 (4.00-5.30); Red Cell Distribution Width 18.4 % (11.6-17.2); White Blood Count 2.7 th/mm3 (4.0-11.0)
[2018-07-16 08:19] LABS: Alanine Aminotransferase 16 U/L (10-53); Alkaline Phosphatase 88 U/L (45-117); Anion Gap 8 meq/L (5-15); Aspartate Aminotransferase 13 U/L (15-37); Blood Urea Nitrogen 29 mg/dL (7-18); Calcium 8.1 mg/dL (8.5-10.1); Carbon Dioxide 23.9 meq/L (21.0-32.0); Chloride 107 meq/L (98-107); Chol/HDL Ratio 3.45 Ratio; Cholesterol 155 mg/dL (120-200); Glomerular Filtration Rate 46 mL/min (>89); Glucose,Random 86 mg/dL (74-106); HDL Cholesterol 44.8 mg/dL (40.0-60.0); LDL Cholesterol,Calculated 72 mg/dL (0-99); Potassium 5.1 meq/L (3.5-5.1); Sodium 139 meq/L (136-145); Total Protein 7.1 g/dL (6.4-8.2); Triglycerides 193 mg/dL (42-150)
[2018-07-16] MEDS: Sod Chloride 0.9% Inj 1,000 ML IV.CONT SCH ×2 (09:33→21:24)
--- NOTE | 2018-07-16 09:33 | P.CONNEU ---
History of Present Illness Service: Neurology Primary Care Provider: [employer] Chief Complaint: Right-sided weakness History of Present Illness: 67-year-old female with history of lung cancer admitted for right-sided weakness. Complains of lower back pain which sometimes radiates to the right leg. Patient tells me exactly her right hip and knee that are painful and states is been going on for months. States she lives alone and has been feeling weak all over in general. States she has neck pain which will radiate to her shoulders. Denies any acute symptoms to myself. States she does have a headache off and on but states she has had that for quite some time in the order weeks to months. Review of Systems All other systems reviewed negative except as stated in HPI PMFSH - History History Provided By: Patient - Medical History Medical History: Medical History (Last Reviewed 07/16/18 @ 08:23 by Marita Gordon) Arthritis Back pain CHF (congestive heart failure) Cataract Diverticulitis GERD (gastroesophageal reflux disease) Head injury Heartburn Hiatal hernia Hx of headache Neck pain On home oxygen therapy Port catheter in place Renal disease Shortness of breath Thalassemia Anemia Anxiety COPD (chronic obstructive pulmonary disease) Gastric ulcer H/O pelvic mass Heart disease History of hysterectomy Hypertension Liver problem Lung cancer Lupus Osteoarthritis Osteoporosis Pneumothorax after biopsy Stroke - Surgical History Surgical History: Surgical History (Last Reviewed 07/16/18 @ 08:00 by Janet Reid) History of neck surgery History of fundoplication Hx of cataract surgery Hx of removal of ovary - Family History Family History: Family History (Last Reviewed 07/15/18 @ 23:30 by Chu Amato MD) Father Lung cancer Brother Prostate cancer Daughter Breast cancer - Tobacco History Second Hand Smoke Exposure: No Tobacco Use In Past 30 Days: No Smoking Status: Former smoker Tobacco Type: Cigarettes - Alcohol History How Often Do You Have a Drink Containing Alcohol: Never - Substance Use History Substance History: No History of Abuse - Travel History Recent Travel in the [place] Within the Last 8 Weeks: No Recent Travel Out of the Country Within the Last 8 Weeks: No - Immunization History Tetanus Immunization: Unsure Medications and Allergies Active Medications: Active Medications Hydrocodone Bitart/Acetaminophen ([place] 10/325) 1 tab PO Q6H PRN PRN Reason: PAIN SCALE 1 TO 10 Last Admin: 07/15/18 20:33 Dose: 1 tab Hydrocodone Bitart/Acetaminophen ([place] 5/325) 1 tab PO Q4H PRN PRN Reason: pain 1 to 10 Last Admin: 07/16/18 00:59 Dose: 1 tab Al Hydroxide/Mg Hydroxide (Milk Of Magnesia Liq) 30 ml PO Q12H PRN PRN Reason: Mild Constipation Bisacodyl (Dulcolax Supp) 10 mg RECTAL DAILY PRN PRN Reason: SEVERE CONSITIPATION Sodium Chloride (Ns Inj) 1,000 mls @ 100 mls/hr IV.CONT .Q10H BUTCH Last Infusion: 07/16/18 09:31 Dose: 100 mls/hr Lactulose (Lactulose Liq) 30 ml PO DAILY PRN PRN Reason: SEVERE CONSITIPATION Melatonin (Melatonin) 5 mg PO HS PRN PRN Reason: INSOMNIA Last Admin: 07/16/18 00:55 Dose: 5 mg Ondansetron HCl (Zofran Odt) 4 mg PO Q6H PRN PRN Reason: Nausea Or Vomiting Last Admin: 07/16/18 01:04 Dose: 4 mg Sennosides (Senokot) 17.2 mg PO Q12H PRN PRN Reason: Moderate Constipation Sodium Chloride (Ns Flush) 2 ml IV.FLUSH BID BUTCH Sodium Chloride (Ns Flush) 2 ml IV.FLUSH PRN PRN PRN Reason: FLUSH AFTER USING IV ACCESS Trimethoprim/Sulfamethoxazole (Bactrim Ds) 1 tab PO DAILY [facility] Allergies Allergy/AdvReac Type Severity Reaction Status Date / Time aspirin Allergy Severe Bleeding Verified 06/01/18 09:18 morphine Allergy Severe STS CAN'T Verified 06/01/18 09:18 BREATH, RASH vancomycin Allergy Intermediate severe Verified 06/01/18 09:18 itching and hives naproxen AdvReac Severe STS BLOOD Verified 06/01/18 09:18 IN URINE Home Medications Medication Instructions Recorded Confirmed Type amlodipine-benazepril 1 cap PO DAILY 05/18/18 07/15/18 History hydrocodone-acetaminophen 1 tab PO Q6HR PRN 05/18/18 07/15/18 History sulfamethoxazole-trimethoprim 1 tab PO DAILY 07/15/18 07/15/18 History [Bactrim DS] Exam Vital signs: Vital Signs 07/15/18 14:00 07/15/18 14:11 07/15/18 18:30 Temperature Pulse Rate 89 99 H Respiratory Rate 18 17 Blood Pressure 94/51 L Pulse Oximetry 98 96 100 07/15/18 19:05 07/15/18 22:04 07/15/18 22:14 Temperature 98.5 F Pulse Rate 95 H 94 H 87 Respiratory Rate 16 18 16 Blood Pressure 105/54 L 117/58 L 100/68 Pulse Oximetry 99 98 99 07/16/18 00:00 07/16/18 00:05 07/16/18 04:00 Temperature 98.3 F 97.7 F Pulse Rate 91 H 93 H 90 Respiratory Rate 16 16 Blood Pressure 120/81 102/66 Pulse Oximetry 99 100 07/16/18 05:33 Temperature Pulse Rate 92 H Respiratory Rate Blood Pressure Pulse Oximetry Intake & Output 07/15/18 07/16/18 07/16/18 18:59 06:59 18:59 Intake Total 500 / 500 500 / 500 Output Total 100 / 100 Balance 500 / 500 400 / 400 Weight 84 kg Intake: IV 500 / 500 500 / 500 NS Inj 500 ML @ 1000 mls/hr IV. 500 / 500 500 / 500 SIG [facility] Rx#:[id number] Output: Urine 100 / 100 Other: # Urine Diapers 1 Narrative: GENERAL: in NAD, obese, looks comfortable sitting up in bed SKIN: Warm and dry. HEAD: Atraumatic. Normocephalic. EYES: Pupils equal and round. No scleral icterus. ENT: No nasal bleeding or discharge. Mucous membranes pink and moist. NECK: Trachea midline. No JVD. CARDIOVASCULAR: Regular rate and rhythm. RESPIRATORY: No accessory muscle use. GASTROINTESTINAL: Abdomen soft, non-tender, nondistended. MUSCULOSKELETAL: Extremities without clubbing, cyanosis, or edema. No obvious deformities. NEUROLOGICAL: Awake and alert. Oriented x3 sitting up in her bed looks comfortable, using her phone when I saw her, no nuchal rigidity no temporal tenderness visual field visual galarza full, no aphasia, fluent articulate, No facial asymmetry, OU 3-2mm, eomi, VFF, able to raise all 4 extremity gravity, does have pain and tenderness with mild passive rotation on the right hip positive logroll test, also mild tenderness at the right knee both which she states are been present for months PSYCHIATRIC: Appropriate mood and affect; insight and judgment normal. - Constitutional no acute distress - Routine HEENT Exam Head: Present: normocephalic Results - Labs CBC & Chem 7: 07/16/18 06:26 07/16/18 06:26 Labs: Laboratory Results - last 24 hr 07/15/18 07/15/18 07/15/18 14:30 14:30 14:30 WBC 4.5 RBC 5.09 Hgb 11.1 L Hct 34.8 L MCV 68.4 L MCH 21.9 L MCHC 32.0 RDW 18.7 H Plt Count 134 L MPV 8.3 Neut % (Auto) 80.9 H Lymph % (Auto) 13.8 [place] % (Auto) 4.6 Eos % (Auto) 0.3 Baso % (Auto) 0.4 Neut # (Auto) 3.7 Lymph # (Auto) 0.6 L [place] # (Auto) 0.2 Eos # (Auto) 0.0 Baso # (Auto) 0.0 WBC Differential . Differential Comment Auto diff final PT 9.8 INR 1.0 APTT 20.8 L Sodium 138 Potassium 4.5 Chloride 104 Carbon Dioxide 22.8 Anion Gap 11 BUN 35 H Creatinine 1.67 H Estimated GFR 31 L Random Glucose 87 Lactic Acid Calcium 8.5 Magnesium 2.0 Total Bilirubin 0.4 AST 14 L ALT 20 Alkaline Phosphatase 101 Troponin I Less than 0.02 L Total Protein 8.7 H Albumin 3.7 Triglycerides Cholesterol LDL Cholesterol, Calc HDL Cholesterol Cholesterol/HDL Ratio Lipase 40 L Urine Color Urine Clarity Urine pH Ur Specific [place] Urine Protein Urine Glucose (UA) Urine Ketones Urine Occult Blood Urine Nitrate Urine Bilirubin Urine Urobilinogen Ur Leukocyte Esterase Urine RBC Urine WBC Ur Squamous Epith Cells Uric Acid Crystals Hyaline Casts Urine Mucus Micro UA Comment Ur Microscopic Review Urine Culture Comments 07/15/18 07/15/18 07/15/18 14:30 16:30 17:30 WBC RBC Hgb Hct MCV MCH MCHC RDW Plt Count MPV Neut % (Auto) Lymph % (Auto) [place] % (Auto) Eos % (Auto) Baso % (Auto) Neut # (Auto) Lymph # (Auto) [place] # (Auto) Eos # (Auto) Baso # (Auto) WBC Differential Differential Comment PT INR APTT Sodium Potassium Chloride Carbon Dioxide Anion Gap BUN Creatinine Estimated GFR Random Glucose Lactic Acid 2.1 H 1.6 Calcium Magnesium Total Bilirubin AST ALT Alkaline Phosphatase Troponin I Total Protein Albumin Triglycerides Cholesterol LDL Cholesterol, Calc HDL Cholesterol Cholesterol/HDL Ratio Lipase Urine Color Yellow Urine Clarity Turbid H Urine pH 5.0 Ur Specific [place] 1.025 Urine Protein 30 H Urine Glucose (UA) Negative Urine Ketones Negative Urine Occult Blood Negative Urine Nitrate Negative Urine Bilirubin Negative Urine Urobilinogen Less than 2 Ur Leukocyte Esterase Negative Urine RBC 3 Urine WBC 2 Ur Squamous Epith Cells 2 Uric Acid Crystals Many H Hyaline Casts 5 Urine Mucus Few H Micro UA Comment Culture not ind Ur Microscopic Review Not Reportable Urine Culture Comments Culture not ind 07/16/18 07/16/18 06:26 06:26 WBC 2.7 L RBC 4.26 Hgb 9.2 L Hct 29.8 L MCV 69.9 L MCH 21.6 L MCHC 31.0 L RDW 18.4 H Plt Count 109 L MPV 8.4 Neut % (Auto) 74.6 H Lymph % (Auto) 17.8 [place] % (Auto) 5.9 Eos % (Auto) 1.2 Baso % (Auto) 0.5 Neut # (Auto) 2.0 Lymph # (Auto) 0.5 L [place] # (Auto) 0.2 Eos # (Auto) 0.0 Baso # (Auto) 0.0 WBC Differential . Differential Comment Auto diff final PT INR APTT Sodium 139 Potassium 5.1 Chloride 107 Carbon Dioxide 23.9 Anion Gap 8 BUN 29 H Creatinine 1.16 H Estimated GFR 46 L Random Glucose 86 Lactic Acid Calcium 8.1 L Magnesium Total Bilirubin 0.3 AST 13 L ALT 16 Alkaline Phosphatase 88 Troponin I Total Protein 7.1 D Albumin 3.0 L D Triglycerides 193 H Cholesterol 155 LDL Cholesterol, Calc 72 HDL Cholesterol 44.8 Cholesterol/HDL Ratio 3.45 Lipase Urine Color Urine Clarity Urine pH Ur Specific [place] Urine Protein Urine Glucose (UA) Urine Ketones Urine Occult Blood Urine Nitrate Urine Bilirubin Urine Urobilinogen Ur Leukocyte Esterase Urine RBC Urine WBC Ur Squamous Epith Cells Uric Acid Crystals Hyaline Casts Urine Mucus Micro UA Comment Ur Microscopic Review Urine Culture Comments - Imaging Impressions Chest X-Ray 07/15/18 14:11 CONCLUSION: Left midlung airspace disease Right [id number]. COPD. Head CT 07/15/18 14:11 CONCLUSION: 1. Stable exam. 2. No evidence of acute infarct, hemorrhage, mass or edema. . Knee X-Ray 07/15/18 14:28 CONCLUSION: 1. 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 Venous Doppler Study 07/15/18 14:28 CONCLUSION: 1. No sonographic evidence for lower extremity DVT. Review/Management - Diagnosis (1) Arthritis of right hip Code(s): M16.11 - Unilateral primary osteoarthritis, right hip Status: Acute Current Visit: Yes (2) Cancer of left lung Code(s): C34.92 - Malignant neoplasm of unspecified part of left bronchus or lung Status: Acute Current Visit: No (3) Lumbar spondylosis Code(s): M47.816 - Spondylosis without myelopathy or radiculopathy, lumbar region Status: Acute Current Visit: Yes (4) Dysthymia Code(s): F34.1 - Dysthymic disorder Status: Acute Current Visit: Yes - Review/Management Plan: Appears to have acute on chronic complaints. Probable moderate right knee and hip arthritis may also have a superimposed right lumbosacral radiculopathy MRI brain negative for acute stroke Recommendation We will obtain an MRI C-spine and MRI of the L-spine Right hip x-rays Pain control May require orthopedic evaluation
--- NOTE | 2018-07-16 09:42 | US ---
EXAM DATE: 07/16/2018 9:28 AM EST AGE/SEX: 67 years / Female INDICATIONS: Cerebrovascular accident. CLINICAL DATA: This is the patient's initial encounter. Patient reports that signs and symptoms have been present for 1 day and indicates a pain score of 0/10. MEDICAL/SURGICAL HISTORY: . Chronic obstructive pulmonary disease. Osteoporosis. Carcinoma, vahid g. Anemia. Anxiety. Ulcer. Pelvic mass. HTN. Lupus. Osteoarthritis. Stroke. Radiation therapy. None. Hysterectomy. Cataract removal. COMPARISON: No prior exams available for comparison. VELOCITY PARAMETERS: ICA/CCA Ratio: Right 0.9 , Left 1.4 ICA: Right 99 cm/sec, Left 166 cm/sec CCA: Right 107 cm/sec, Left 120 cm/sec ECA: Right 126 cm/sec, Left 172 cm/sec Vertebral: Right 108 cm/sec antegrade, Left 72 cm/sec antegrade FINDINGS: Right Carotid: Mild arteriosclerotic plaque is visualized.The waveforms are within normal limits. Left Carotid: Mild arteriosclerotic plaque is visualized. The waveforms are within normal limits. Other: None. CONCLUSION: No evidence for hemodynamically significant stenosis. Electronically signed by: Danielle Casanova MD 07/16/2018 9:40 AM EST
--- NOTE | 2018-07-16 10:15 | ECG ---
Date Performed: 07/15/2018 Time Performed: 14:30:56 PTAGE: 67 years EKG: Sinus rhythm WITH SHORT NE INTERVAL NONSPECIFIC T-WAVE ABNORMALITY Since the previous tracing, no significant khang nge noted BORDERLINE ECG PREVIOUS TRACING : 05/19/2018 16.09 DOCTOR: George Enrique Interpretating Date/Time 07/16/2018 10:14:00
--- NOTE | 2018-07-16 12:58 | ECHRPT ---
Indication: CVA/TIA CONCLUSIONS Normal left ventricular size. Wall thickness is normal. The left ventricular systolic function is normal with an estimated ejection fraction in the range of 55-60%. Trace mitral valve regurgitation. The estimated pulmonary arterial pressure is 46 mmHg. There is mild tricuspid valve regurgitation. BP: / HR: Rhythm: MEASUREMENTS (Male / Female) Normal Values Technical Quality: 2D ECHO LV Diastolic Diameter PLAX 4.7 cm 4.2 - 5.9 / 3.9 - 5.3 cm LV Systolic Diameter PLAX 3.6 cm IVS Diastolic Thickness 1.1 cm 0.6 - 1.0 / 0.6 - 0.9 cm LVPW Diastolic Thickness 1.2 cm 0.6 - 1.0 / 0.6 - 0.9 cm LV Relative Wall Thickness 0.5 RV Internal Dim ED PLAX 2.9 cm LVOT Diameter 1.7 cm Aortic Root Diameter 2.0 cm LA Systolic Diameter LX 3.0 cm 3.0 - 4.0 / 2.7 - 3.8 cm LV Ejection Fraction MOD 4C 62.5 % LV Ejection Fraction 4C AL 63.1 % LV Ejection Fraction MOD 2C 59.4 % LV Ejection Fraction 2C AL 61.2 % M-MODE Aortic Root Diameter MM 2.6 cm LA Systolic Diameter MM 4.3 cm LA Ao Ratio MM 1.7 AV Cusp Separation MM 2.0 cm DOPPLER AV Peak Velocity 208.5 cm/s AV Peak Gradient 17.4 mmHg AV Mean Gradient 9.0 mmHg AV Velocity Time Integral 32.6 cm LVOT Peak Velocity 122.0 cm/s LVOT Peak Gradient 6.0 mmHg LVOT Velocity Time Integral 21.1 cm AV Area Cont Eq vti 1.5 cm AV Area Cont Eq pk 1.3 cm Mitral E Point Velocity 77.5 cm/s Mitral A Point Velocity 83.9 cm/s Mitral E to A Ratio 0.9 LV E' Lateral Velocity 9.3 cm/s Mitral E to LV E' Lateral Ratio 8.4 LV E' Septal Velocity 6.8 cm/s Mitral E to LV E' Septal Ratio 11.4 TR Peak Velocity 300.0 cm/s TR Peak Gradient 36.0 mmHg Right Atrial Pressure 10.0 mmHg Pulmonary Artery Systolic Pressu 46.0 mmHg Right Ventricular Systolic Press 46.0 mmHg PV Peak Velocity 109.0 cm/s PV Peak Gradient 4.8 mmHg FINDINGS LEFT VENTRICLE Normal left ventricular size. Wall thickness is normal. The left ventricular systolic function is normal with an estimated ejection fraction in the range of 55-60%. RIGHT VENTRICLE Normal right ventricular size and systolic function. LEFT ATRIUM The left atrial size is normal. RIGHT ATRIUM The right atrial size is normal. ATRIAL SEPTUM Normal atrial septal thickness without atrial level shunting by limited color doppler interrogation. AORTA The aortic root and proximal ascending aorta are normal in size on limited imaging. MITRAL VALVE Trace mitral valve regurgitation. AORTIC VALVE Trileaflet aortic valve. No aortic valve stenosis or regurgitation. TRICUSPID VALVE The estimated pulmonary arterial pressure is 46 mmHg. There is mild tricuspid valve regurgitation. PULMONARY VALVE No pulmonary valve regurgitation or stenosis. VESSELS The inferior vena cava is normal in size. PERICARDIUM No pericardial effusion. Ad Robles MD, FACC, [facility] [place] (Electronically Signed) Final Date:16 July 2018 12:57
[2018-07-16] MEDS ORDERED: Gadobutrol PF 10 MMOL/10 ML Vial (for RAD) IV.SIG ONE (15:21)
--- NOTE | 2018-07-16 15:36 | MR ---
EXAM DATE: 07/16/2018 3:29 PM EST AGE/SEX: 67 years / Female INDICATIONS: . Dizziness and weakness. CLINICAL DATA: This is the patient's subsequent encounter. Patient reports that signs and symptoms h ave been present for 2 days and indicates a pain score of 0/10. MEDICAL/SURGICAL HISTORY: Carcinoma, lung. CHF, GERD, COPD, stroke . port placed, neck surgery , ovary removed COMPARISON: [facility] – [place], CT HEAD W/O CONTRAST, 07/15/2018. . TECHNIQUE: Multiplanar, multisequence examination of the brain was performed without and with 8.5 ml Gadavist (gadobutrol) contrast as a single exam dose. FINDINGS: Cerebrum: The ventricles are normal for age. No evidence of midline shift, mass lesion, hemorrhage or acute infarction. No extraaxial fluid collections are seen. The pituitary gland and suprasellar cistern are normal in configuration. White Matter: Scattered periventricular and subcortical white matter hyperintensities likely represe nt chronic small vessel ischemic change. Posterior Fossa: The cerebellum and brainstem are intact. The 4th ventricle is midline. The cerebel lopontine angle is unremarkable. The cerebellar tonsils are normal in position. Diffusion Imaging: No focal areas of restricted diffusion are seen. No evidence of acute infarction . Extracranial: The visualized portions of the orbits and paranasal sinuses are unremarkable. Post Contrast: No abnormal areas of parenchymal or dural enhancement. No evidence of blood-brain ba rrier breakdown. CONCLUSION: Negative MR Brain with and without contrast. Electronically signed by: Neri Mukherjee MD 07/16/2018 3:34 PM EST
--- NOTE | 2018-07-16 16:39 | P.PN ---
Subjective Interval history: Nursing denies any acute deteriorations overnight. Patient herself reports vomiting this morning. She says that her right-sided weakness has been there for about a week. Physical Exam Vital signs: Vital Signs 07/15/18 18:30 07/15/18 19:05 07/15/18 22:04 Temperature Pulse Rate 99 H 95 H 94 H Respiratory Rate 17 16 18 Blood Pressure 94/51 L 105/54 L 117/58 L Pulse Oximetry 100 99 98 07/15/18 22:14 07/16/18 00:00 07/16/18 00:05 Temperature 98.5 F 98.3 F Pulse Rate 87 91 H 93 H Respiratory Rate 16 16 Blood Pressure 100/68 120/81 Pulse Oximetry 99 99 07/16/18 04:00 07/16/18 05:33 07/16/18 08:00 Temperature 97.7 F Pulse Rate 90 92 H 86 Respiratory Rate 16 Blood Pressure 102/66 Pulse Oximetry 100 07/16/18 09:17 07/16/18 12:00 07/16/18 12:53 Temperature 98.4 F 98.6 F Pulse Rate 83 84 87 Respiratory Rate 16 16 Blood Pressure 97/53 L 114/59 L Pulse Oximetry 100 99 Intake & Output 07/15/18 07/16/18 07/16/18 18:59 06:59 18:59 Intake Total 500 / 500 500 / 500 1000 / 1000 Output Total 100 / 100 Balance 500 / 500 400 / 400 1000 / 1000 Weight 84 kg Intake: IV 500 / 500 500 / 500 1000 / 1000 NS Inj 1,000 ML @ 100 mls/hr IV 1000 / 1000 .CONT .Q10H [facility] Rx#:[id number] NS Inj 500 ML @ 1000 mls/hr IV. 500 / 500 500 / 500 SIG BOLUS [facility] Rx#:[id number] Output: Urine 100 / 100 Other: # Urine Diapers 1 Narrative: Sitting up in bed, heart sounds regular rate rhythm Clear lungs bilaterally, unlabored breathing 3/5 right proximal upper extremity strength and lower extremity strength, 5/5 on the left in comparison No facial droop, no slurred speech Results - Labs CBC & Chem 7: 07/16/18 06:26 07/17/18 04:00 Laboratory Results - last 24 hr 07/15/18 07/15/18 07/16/18 16:30 17:30 06:26 WBC 2.7 L RBC 4.26 Hgb 9.2 L Hct 29.8 L MCV 69.9 L MCH 21.6 L MCHC 31.0 L RDW 18.4 H Plt Count 109 L MPV 8.4 Neut % (Auto) 74.6 H Lymph % (Auto) 17.8 Mobile % (Auto) 5.9 Eos % (Auto) 1.2 Baso % (Auto) 0.5 Neut # (Auto) 2.0 Lymph # (Auto) 0.5 L Mobile # (Auto) 0.2 Eos # (Auto) 0.0 Baso # (Auto) 0.0 WBC Differential . Differential Comment Auto diff final Sodium Potassium Chloride Carbon Dioxide Anion Gap BUN Creatinine Estimated GFR Random Glucose Lactic Acid 1.6 Calcium Total Bilirubin AST ALT Alkaline Phosphatase Total Protein Albumin Triglycerides Cholesterol LDL Cholesterol, Calc HDL Cholesterol Cholesterol/HDL Ratio Urine Color Yellow Urine Clarity Turbid H Urine pH 5.0 Ur Specific [place] 1.025 Urine Protein 30 H Urine Glucose (UA) Negative Urine Ketones Negative Urine Occult Blood Negative Urine Nitrate Negative Urine Bilirubin Negative Urine Urobilinogen Less than 2 Ur Leukocyte Esterase Negative Urine RBC 3 Urine WBC 2 Ur Squamous Epith Cells 2 Uric Acid Crystals Many H Hyaline Casts 5 Urine Mucus Few H Micro UA Comment Culture not ind Ur Microscopic Review Not Reportable Urine Culture Comments Culture not ind 07/16/18 06:26 WBC RBC Hgb Hct MCV MCH MCHC RDW Plt Count MPV Neut % (Auto) Lymph % (Auto) Mobile % (Auto) Eos % (Auto) Baso % (Auto) Neut # (Auto) Lymph # (Auto) Mobile # (Auto) Eos # (Auto) Baso # (Auto) WBC Differential Differential Comment Sodium 139 Potassium 5.1 Chloride 107 Carbon Dioxide 23.9 Anion Gap 8 BUN 29 H Creatinine 1.16 H Estimated GFR 46 L Random Glucose 86 Lactic Acid Calcium 8.1 L Total Bilirubin 0.3 AST 13 L ALT 16 Alkaline Phosphatase 88 Total Protein 7.1 D Albumin 3.0 L D Triglycerides 193 H Cholesterol 155 LDL Cholesterol, Calc 72 HDL Cholesterol 44.8 Cholesterol/HDL Ratio 3.45 Urine Color Urine Clarity Urine pH Ur Specific [place] Urine Protein Urine Glucose (UA) Urine Ketones Urine Occult Blood Urine Nitrate Urine Bilirubin Urine Urobilinogen Ur Leukocyte Esterase Urine RBC Urine WBC Ur Squamous Epith Cells Uric Acid Crystals Hyaline Casts Urine Mucus Micro UA Comment Ur Microscopic Review Urine Culture Comments - Imaging Impressions Head CT 07/15/18 14:11 CONCLUSION: 1. Stable exam. 2. No evidence of acute infarct, hemorrhage, mass or edema. . Carotid Doppler Study 07/16/18 00:00 CONCLUSION: No evidence for hemodynamically significant stenosis. Head MRI 07/16/18 00:00 CONCLUSION: Negative MR Brain with and without contrast. Assessment and Plan - Plan 67-year-old female admitted with subacute right-sided weakness and acute kidney injury. Has non-small cell lung cancer, followed by oncology. Renal function improved with IV fluids, MRI unremarkable. //Right upper and right lower extremity weakness w/ pain -CT brain negative for acute, magnesium stable -MRI shows no acute strokes, continue neurochecks Neurology following -Ordering TSH, CK level, phosphorus //Non-small cell lung cancer. Stage T3N3, IIIC -Followed by Dr. Melendez -continue home prophylactic dose of Bactrim -Oncology consulted - Noted to have a nonocclusive thrombus within the right IJ incidentally on carotid ultrasound //Acute kidney injury. Resolved w/ IVFs- //Nausea. -Likely secondary to dehydration, chemotherapy. -Antiemetics. //History of hypertension. -Will hold off on home blood pressure meds and monitor. //Lightheadedness - resolved lovenox
[2018-07-16] MEDS ORDERED: Enoxaparin Inj 30 MG/0.3 ML Syringe SQ SCH (17:00)
[2018-07-16 17:03] LABS: Hemoglobin A1c 6.7 % (4.3-6.0)
[2018-07-16 17:22] LABS: Phosphorus 4.1 mg/dL (2.5-4.9)
[2018-07-16 17:31] LABS: Thyroid Stimulating Hormone 1.61 uIU/mL (0.358-3.740)
[2018-07-16] MEDS ORDERED: Acetaminophen 325 MG Tablet PO PRN (18:44)
--- NOTE | 2018-07-16 20:39 | XR ---
EXAM DATE: 07/16/2018 8:35 PM EST AGE/SEX: 67 years / Female INDICATIONS: Right hip pain, arthritis. CLINICAL DATA: This is the patient's initial encounter. Patient reports that signs and symptoms have been present for 1 day and indicates a pain score of 10/10. MEDICAL/SURGICAL HISTORY: Arthritis. Metastatic disease. Malignancy. None. COMPARISON: [facility] – [place], HIP RIGHT (AP&LAT 2/3VWS) WO AP PELVIS, 08/31/2011. . FINDINGS: Bony structures are intact and in normal alignment. Joints are intact without dislocation or signifi cant arthropathy. Osseous density is normal. Soft tissues are unremarkable. No radiopaque foreign bodies seen. CONCLUSION: No fracture, subluxation or significant joint space narrowing/arthropathy of the right hip. Electronically signed by: Leonid Ibrahim MD 07/16/2018 8:37 PM EST
[2018-07-16] MEDS ORDERED: Temazepam 15 MG Capsule PO ONE (21:00)
[2018-07-16] MEDS ORDERED: HYDROmorphone PF Inj 0.5 MG/0.5 ML Syringe IV.PUSH ONE (21:30)
[2018-07-17] MEDS: Sod Chloride 0.9% Inj 1,000 ML IV.CONT SCH ×2 (02:41→19:10)
[2018-07-17 05:01] LABS: Calcium 8.1 mg/dL (8.5-10.1); Carbon Dioxide 26.4 meq/L (21.0-32.0); Potassium 4.6 meq/L (3.5-5.1)
--- NOTE | 2018-07-17 07:11 | P.CON ---
History of Present Illness Primary Care Provider: Saranas Chief Complaint: Right-sided weakness PMFSH - History History Provided By: Patient - Medical History Medical History: Medical History (Last Reviewed 07/16/18 @ 08:23 by Marita Gordon) Arthritis Back pain CHF (congestive heart failure) Cataract Diverticulitis GERD (gastroesophageal reflux disease) Head injury Heartburn Hiatal hernia Hx of headache Neck pain On home oxygen therapy Port catheter in place Renal disease Shortness of breath Thalassemia Anemia Anxiety COPD (chronic obstructive pulmonary disease) Gastric ulcer H/O pelvic mass Heart disease History of hysterectomy Hypertension Liver problem Lung cancer Lupus Osteoarthritis Osteoporosis Pneumothorax after biopsy Stroke - Surgical History Surgical History: Surgical History (Last Reviewed 07/16/18 @ 08:00 by Janet Reid) History of neck surgery History of fundoplication Hx of cataract surgery Hx of removal of ovary - Family History Family History: Family History (Last Reviewed 07/15/18 @ 23:30 by Chu Amato MD) Father Lung cancer Brother Prostate cancer Daughter Breast cancer - Tobacco History Second Hand Smoke Exposure: No Tobacco Use In Past 30 Days: No Smoking Status: Former smoker Tobacco Type: Cigarettes - Alcohol History How Often Do You Have a Drink Containing Alcohol: Never - Substance Use History Substance History: No History of Abuse - Travel History Recent Travel in the [place] Within the Last 8 Weeks: No Recent Travel Out of the Country Within the Last 8 Weeks: No - Immunization History Tetanus Immunization: Unsure Medications and Allergies Active Medications: Active Medications Acetaminophen (Tylenol) 650 mg PO Q6H PRN PRN Reason: pain if pt refuses norco Hydrocodone Bitart/Acetaminophen ([place] 5/325) 1 tab PO Q4H PRN PRN Reason: pain 1 to 10 Last Admin: 07/16/18 00:59 Dose: 1 tab Al Hydroxide/Mg Hydroxide (Milk Of Magnesia Liq) 30 ml PO Q12H PRN PRN Reason: Mild Constipation Bisacodyl (Dulcolax Supp) 10 mg RECTAL DAILY PRN PRN Reason: SEVERE CONSITIPATION Enoxaparin Sodium (Lovenox Inj) 30 mg SQ Q24H BUTCH Last Admin: 07/16/18 17:56 Dose: 30 mg Hydroxyzine Pamoate (Vistaril) 50 mg PO Q6H PRN PRN Reason: ANXIETY Last Admin: 07/17/18 02:28 Dose: 50 mg Sodium Chloride (Ns Inj) 1,000 mls @ 100 mls/hr IV.CONT .Q10H [facility] Last Admin: 07/17/18 02:41 Dose: 100 mls/hr Lactulose (Lactulose Liq) 30 ml PO DAILY PRN PRN Reason: SEVERE CONSITIPATION Melatonin (Melatonin) 5 mg PO HS PRN PRN Reason: INSOMNIA Last Admin: 07/16/18 00:55 Dose: 5 mg Ondansetron HCl (Zofran Odt) 4 mg PO Q6H PRN PRN Reason: Nausea Or Vomiting Last Admin: 07/17/18 02:28 Dose: 4 mg Sennosides (Senokot) 17.2 mg PO Q12H PRN PRN Reason: Moderate Constipation Sodium Chloride (Ns Flush) 2 ml IV.FLUSH BID [facility] Last Admin: 07/16/18 21:18 Dose: 2 ml Sodium Chloride (Ns Flush) 2 ml IV.FLUSH PRN PRN PRN Reason: FLUSH AFTER USING IV ACCESS Trimethoprim/Sulfamethoxazole (Bactrim Ds) 1 tab PO DAILY [facility] Last Admin: 07/16/18 09:17 Dose: Not Given Allergies Allergy/AdvReac Type Severity Reaction Status Date / Time aspirin Allergy Severe Bleeding Verified 06/01/18 09:18 morphine Allergy Severe STS CAN'T Verified 06/01/18 09:18 BREATH, RASH vancomycin Allergy Intermediate severe Verified 06/01/18 09:18 itching and hives naproxen AdvReac Severe STS BLOOD Verified 06/01/18 09:18 IN URINE Home Medications Medication Instructions Recorded Confirmed Type amlodipine-benazepril 1 cap PO DAILY 05/18/18 07/15/18 History hydrocodone-acetaminophen 1 tab PO Q6HR PRN 05/18/18 07/15/18 History sulfamethoxazole-trimethoprim 1 tab PO DAILY 07/15/18 07/15/18 History [Bactrim DS] Physical Exam Vital signs: Vital Signs 07/16/18 08:00 07/16/18 09:17 07/16/18 12:00 Temperature 98.4 F Pulse Rate 86 83 84 Respiratory Rate 16 Blood Pressure 97/53 L Pulse Oximetry 100 07/16/18 12:53 07/16/18 17:39 07/16/18 19:00 Temperature 98.6 F 98.6 F Pulse Rate 87 93 H 95 H Respiratory Rate 16 18 Blood Pressure 114/59 L 107/76 Pulse Oximetry 99 98 07/16/18 20:00 07/16/18 23:01 07/17/18 00:00 Temperature 97.3 F L 98.2 F Pulse Rate 104 H 95 H 94 H Respiratory Rate 18 14 Blood Pressure 121/73 102/55 L Pulse Oximetry 99 99 07/17/18 03:31 07/17/18 04:00 Temperature 98.3 F Pulse Rate 116 H 109 H Respiratory Rate 16 Blood Pressure 135/75 Pulse Oximetry 98 Intake & Output 07/16/18 07/17/18 07/17/18 18:59 06:59 18:59 Intake Total 1000 / 1000 2700 / 2700 Output Total 400 / 400 1300 / 1300 Balance 600 / 600 1400 / 1400 Weight 82 kg Intake: IV 1000 / 1000 1999 / 1999 NS Inj 1,000 ML @ 100 mls/hr IV 1000 / 1000 1999 / 1999 .CONT .Q10H [facility] Rx#:[id number] Oral 700 / 700 Output: Urine 400 / 400 1300 / 1300 Other: # Urine Diapers 1 Date of Last Bowel Movement 07/15/18
--- NOTE | 2018-07-17 07:35 | P.CON ---
History of Present Illness Service: Hematology/oncology. Consult date: 07/17/18 Requesting Physician: Tommy Nuno Reason for Consult: History of lung cancer, new finding of right IJ thrombus. Primary Care Provider: Olegario Galvan Chief Complaint: Right-sided weakness; right upper and lower extremity. History of Present Illness: Ms. 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 She is actively on treatment with combined modality chemoradiotherapy. She receives weekly carboplatin and Taxol, her last dose was on 07/13/2018. She has approximately 3 weeks of radiation remaining and 3 weekly doses of chemotherapy remaining. Patient reports developing symptoms of right upper extremity weakness and right lower extremity weakness prior to this hospitalization. She was concerned she was having a stroke. An MRI of the head was performed with and without contrast , this was negative for acute stroke. The patient also underwent a carotid artery Doppler scan which revealed no evidence of hemodynamically significant stenosis., Incidentally on the carotid artery Doppler ultrasound she was found to have a small nonocclusive thrombosis within the right IJ. The patient was evaluated by neurology, she was assessed to have no evidence of a stroke. She was rather assessed to have issues likely relating to radiculopathy. Hematology/oncology service is been asked to see her to help address her current issues; specifically the small volume nonocclusive right IJ thrombosis. It should be noted she has a right-sided infusion port. Review of Systems Constitutional: Reports body ache(s), Reports fatigue, Reports weakness, Reports weight loss Eyes: Denies change in vision Ears, Nose, Mouth, and Throat: Reports hoarseness Cardiovascular: Reports lightheadedness, Reports shortness of breath, Denies chest pain, Denies leg swelling Respiratory: Reports chest congestion, Reports cough, Reports pain with cough, Reports shortness of breath, Denies coughing up blood Gastrointestinal: Denies abdominal pain, Denies black, tarry stools, Denies bright, red blood in stools, Denies vomiting blood Genitourinary: Denies blood in urine, Denies difficulty urinating Musculoskeletal: Denies back pain Skin/Breast: Denies skin ulcer, Denies sores Neurologic: Reports localized weakness, Reports unsteadiness, Reports weakness, Denies abnormal hearing, Denies abnormal speech Comments: Right upper and right lower extremity weakness. Psychiatric: Reports anxiety Endocrine: Denies cold intolerance Hematologic/Lymphatic: Denies easy bleeding Allergic/Immunologic: Denies GI upset with certain foods PMFSH - History History Provided By: Patient - Medical History Medical History: Medical History (Last Reviewed 07/17/18 @ 07:28 by Jeremy Mirza MD) Arthritis Back pain CHF (congestive heart failure) Cataract Diverticulitis GERD (gastroesophageal reflux disease) Head injury Heartburn Hiatal hernia Hx of headache Neck pain On home oxygen therapy Port catheter in place Renal disease Shortness of breath Thalassemia Anemia Anxiety COPD (chronic obstructive pulmonary disease) Gastric ulcer H/O pelvic mass Heart disease History of hysterectomy Hypertension Liver problem Lung cancer Lupus Osteoarthritis Osteoporosis Pneumothorax after biopsy Stroke - Surgical History Surgical History: Surgical History (Last Reviewed 07/17/18 @ 07:28 by Jeremy Mirza MD) History of neck surgery History of fundoplication Hx of cataract surgery Hx of removal of ovary - Family History Family History: Family History (Last Reviewed 07/17/18 @ 07:28 by Jeremy Mirza MD) Father Lung cancer Brother Prostate cancer Daughter Breast cancer - Social History I have reviewed the patient's Social History: Yes - Tobacco History Second Hand Smoke Exposure: No Tobacco Use In Past 30 Days: No Smoking Status: Former smoker Tobacco Type: Cigarettes - Alcohol History How Often Do You Have a Drink Containing Alcohol: Never - Substance Use History Substance History: No History of Abuse - Travel History Recent Travel in the [place] Within the Last 8 Weeks: No Recent Travel Out of the Country Within the Last 8 Weeks: No - Immunization History Tetanus Immunization: Unsure Medications and Allergies Active Medications: Active Medications Acetaminophen (Tylenol) 650 mg PO Q6H PRN PRN Reason: pain if pt refuses norco Hydrocodone Bitart/Acetaminophen ([place] 5/325) 1 tab PO Q4H PRN PRN Reason: pain 1 to 10 Last Admin: 07/16/18 00:59 Dose: 1 tab Al Hydroxide/Mg Hydroxide (Milk Of Magnesia Liq) 30 ml PO Q12H PRN PRN Reason: Mild Constipation Bisacodyl (Dulcolax Supp) 10 mg RECTAL DAILY PRN PRN Reason: SEVERE CONSITIPATION Enoxaparin Sodium (Lovenox Inj) [address] [facility] Last Admin: 07/16/18 17:56 Dose: 30 mg Hydroxyzine Pamoate (Vistaril) 50 mg PO Q6H PRN PRN Reason: ANXIETY Last Admin: 07/17/18 02:28 Dose: 50 mg Sodium Chloride (Ns Inj) 1,000 mls @ 100 mls/hr IV.CONT .Q10H [facility] Last Admin: 07/17/18 02:41 Dose: 100 mls/hr Lactulose (Lactulose Liq) 30 ml PO DAILY PRN PRN Reason: SEVERE CONSITIPATION Melatonin (Melatonin) 5 mg PO HS PRN PRN Reason: INSOMNIA Last Admin: 07/16/18 00:55 Dose: 5 mg Ondansetron HCl (Zofran Odt) 4 mg PO Q6H PRN PRN Reason: Nausea Or Vomiting Last Admin: 07/17/18 02:28 Dose: 4 mg Sennosides (Senokot) 17.2 mg PO Q12H PRN PRN Reason: Moderate Constipation Sodium Chloride (Ns Flush) [address] [facility] Last Admin: 07/16/18 21:18 Dose: 2 ml Sodium Chloride (Ns Flush) 2 ml IV.FLUSH PRN PRN PRN Reason: FLUSH AFTER USING IV ACCESS Trimethoprim/Sulfamethoxazole (Bactrim Ds) [address] [facility] Last Admin: 07/16/18 09:17 Dose: Not Given Allergies Allergy/AdvReac Type Severity Reaction Status Date / Time aspirin Allergy Severe Bleeding Verified 06/01/18 09:18 morphine Allergy Severe STS CAN'T Verified 06/01/18 09:18 BREATH, RASH vancomycin Allergy Intermediate severe Verified 06/01/18 09:18 itching and hives naproxen AdvReac Severe STS BLOOD Verified 06/01/18 09:18 IN URINE Home Medications Medication Instructions Recorded Confirmed Type amlodipine-benazepril 1 cap PO DAILY 05/18/18 07/15/18 History hydrocodone-acetaminophen 1 tab PO Q6HR PRN 05/18/18 07/15/18 History sulfamethoxazole-trimethoprim 1 tab PO DAILY 07/15/18 07/15/18 History [Bactrim DS] Physical Exam Vital signs: Vital Signs 07/16/18 08:00 07/16/18 09:17 07/16/18 12:00 Temperature 98.4 F Pulse Rate 86 83 84 Respiratory Rate 16 Blood Pressure 97/53 L Pulse Oximetry 100 07/16/18 12:53 07/16/18 17:39 07/16/18 19:00 Temperature 98.6 F 98.6 F Pulse Rate 87 93 H 95 H Respiratory Rate 16 18 Blood Pressure 114/59 L 107/76 Pulse Oximetry 99 98 07/16/18 20:00 07/16/18 23:01 07/17/18 00:00 Temperature 97.3 F L 98.2 F Pulse Rate 104 H 95 H 94 H Respiratory Rate 18 14 Blood Pressure 121/73 102/55 L Pulse Oximetry 99 99 07/17/18 03:31 07/17/18 04:00 Temperature 98.3 F Pulse Rate 116 H 109 H Respiratory Rate 16 Blood Pressure 135/75 Pulse Oximetry 98 Intake & Output 07/16/18 07/17/18 07/17/18 18:59 06:59 18:59 Intake Total 1000 / 1000 2700 / 2700 Output Total 400 / 400 1300 / 1300 Balance 600 / 600 1400 / 1400 Weight 82 kg Intake: IV 1000 / 1000 1999 / 1999 NS Inj 1,000 ML @ 100 mls/hr IV 1000 / 1000 1999 / 1999 .CONT .Q10H [facility] Rx#:[id number] Oral 700 / 700 Output: Urine 400 / 400 1300 / 1300 Other: # Urine Diapers 1 Date of Last Bowel Movement 07/15/18 Narrative: General: Patient is a middle-aged/elderly lady, she is short, she is heavyset. She is laying in bed, she is awake. HEENT: Head atraumatic and was felt, conjunctivae are mildly pale, sclerae are anicteric. Pupils are equally round and reactive. Oral exam no pharyngeal erythema, she has dentures in place. Neck exam no palpable cervical suprapubic lymphadenopathy, no evidence of swelling or prominent veins or other blood vessel. Respiratory exam: Good air movement over the upper and middle lung zones as well as lower lung zones. This no rhonchi, wheezes or rales. Cardiovascular exam: Regular rate and rhythm, S1-S2 no rubs murmurs rubs or gallops. Abdominal exam: Protuberant belly, positive bowel sounds, no palpable organ enlargement. Lower extremities: No pretibial edema no calf tenderness. ASSOCIATE PATHOLOGIST: Left upper and lower extremity: 5 x 5 strength. Right upper and lower extremity: Decreased range of motion, decreased motor strength, 2-3/ 5 strength. Assessment and Plan - Plan Ms. Moore is a 67-year-old female with a recent diagnosis of a stage III non- small cell carcinoma of the right lung. She is presently on combined modality chemoradiotherapy. She has approximately 3 weeks of treatment remaining, she receives chemotherapy via a right-sided infusion port. The patient does have multiple additional medical comorbid conditions including rheumatoid arthritis, reported history of lupus, osteoporosis and osteoarthritis. She reports having chronic neck and back pain. Initial staging studies performed within the last 3 months indicates no evidence of bony metastatic disease. She presents the hospital with complaints of pain and weakness of her upper and lower extremity on the right side. She also reports feeling generally tired, has loss of appetite and has been struggling to thrive at home especially given the aggressive therapeutic interventions being rendered for management of her lung carcinoma. Recommendations: 1. Non-small cell carcinoma of the lung: She will resume combined modality chemoradiotherapy once her acute issues have resolved and when she has been discharged from the hospital. 2. Chemotherapy related cytopenias: She does have some leukopenia thrombocytopenia and anemia, this is all likely related to chemotherapy related myelosuppression. I do not at this time recommend any specific therapeutic interventions given her ANC being greater than 1.5, her hemoglobin at 9.2 and her platelet count at slightly higher than 100,000/mcL. 3. Small nonocclusive thrombosis involving the right IJ: Most likely related to the infusion port. It would be reasonable to initiate anticoagulation at this time, I would advise intermediate dose anticoagulation given the patient's labile renal function and anticipated cytopenias (in particular thrombocytopenia ) secondary to ongoing chemotherapy. 4. Right-sided weakness: It may be reasonable to obtain an MRI of the cervical and thoracic spine to assess for radiculopathy. I will place orders for Eliquis 2.5 mg twice daily. Oncology service to follow along with you. I suspect she needs supportive care with hydration, pain management and physical therapy at this time.
--- NOTE | 2018-07-17 07:41 | P.PNNEU ---
Subjective Subjective Comments: slept well; pain off/on. states "just keep me comfortable", c/o rt knee arthritis Active Medications: Active Medications Acetaminophen (Tylenol) 650 mg PO Q6H PRN PRN Reason: pain if pt refuses norco Hydrocodone Bitart/Acetaminophen ([place] 5/325) 1 tab PO Q4H PRN PRN Reason: pain 1 to 10 Last Admin: 07/16/18 00:59 Dose: 1 tab Al Hydroxide/Mg Hydroxide (Milk Of Magnesia Liq) 30 ml PO Q12H PRN PRN Reason: Mild Constipation Apixaban (Eliquis) 2.5 mg PO BID [facility] Bisacodyl (Dulcolax Supp) 10 mg RECTAL DAILY PRN PRN Reason: SEVERE CONSITIPATION Enoxaparin Sodium (Lovenox Inj) 30 mg SQ Q24H [facility] Last Admin: 07/16/18 17:56 Dose: 30 mg Hydroxyzine Pamoate (Vistaril) 50 mg PO Q6H PRN PRN Reason: ANXIETY Last Admin: 07/17/18 02:28 Dose: 50 mg Sodium Chloride (Ns Inj) 1,000 mls @ 100 mls/hr IV.CONT .Q10H [facility] Last Admin: 07/17/18 02:41 Dose: 100 mls/hr Lactulose (Lactulose Liq) 30 ml PO DAILY PRN PRN Reason: SEVERE CONSITIPATION Melatonin (Melatonin) 5 mg PO HS PRN PRN Reason: INSOMNIA Last Admin: 07/16/18 00:55 Dose: 5 mg Ondansetron HCl (Zofran Odt) 4 mg PO Q6H PRN PRN Reason: Nausea Or Vomiting Last Admin: 07/17/18 02:28 Dose: 4 mg Sennosides (Senokot) 17.2 mg PO Q12H PRN PRN Reason: Moderate Constipation Sodium Chloride (Ns Flush) 2 ml IV.FLUSH BID [facility] Last Admin: 07/16/18 21:18 Dose: 2 ml Sodium Chloride (Ns Flush) 2 ml IV.FLUSH PRN PRN PRN Reason: FLUSH AFTER USING IV ACCESS Trimethoprim/Sulfamethoxazole (Bactrim Ds) 1 tab PO DAILY [facility] Last Admin: 07/16/18 09:17 Dose: Not Given Allergies/Adverse Reactions: Allergies Allergy/AdvReac Type Severity Reaction Status Date / Time aspirin Allergy Severe Bleeding Verified 06/01/18 09:18 morphine Allergy Severe STS CAN'T Verified 06/01/18 09:18 BREATH, RASH vancomycin Allergy Intermediate severe Verified 06/01/18 09:18 itching and hives naproxen AdvReac Severe STS BLOOD Verified 06/01/18 09:18 IN URINE Review of Systems All other systems reviewed negative except as stated in HPI Physical Exam Vital signs: Vital Signs 07/16/18 08:00 07/16/18 09:17 07/16/18 12:00 Temperature 98.4 F Pulse Rate 86 83 84 Respiratory Rate 16 Blood Pressure 97/53 L Pulse Oximetry 100 07/16/18 12:53 07/16/18 17:39 07/16/18 19:00 Temperature 98.6 F 98.6 F Pulse Rate 87 93 H 95 H Respiratory Rate 16 18 Blood Pressure 114/59 L 107/76 Pulse Oximetry 99 98 07/16/18 20:00 07/16/18 23:01 07/17/18 00:00 Temperature 97.3 F L 98.2 F Pulse Rate 104 H 95 H 94 H Respiratory Rate 18 14 Blood Pressure 121/73 102/55 L Pulse Oximetry 99 99 07/17/18 03:31 07/17/18 04:00 Temperature 98.3 F Pulse Rate 116 H 109 H Respiratory Rate 16 Blood Pressure 135/75 Pulse Oximetry 98 Intake & Output 07/16/18 07/17/18 07/17/18 18:59 06:59 18:59 Intake Total 1000 / 1000 2700 / 2700 Output Total 400 / 400 1300 / 1300 Balance 600 / 600 1400 / 1400 Weight 82 kg Intake: IV 1000 / 1000 1999 NS Inj 1,000 ML @ 100 mls/hr IV 1000 / 1000 1999 .CONT .Q10H [facility] Rx#:[id number] Oral 700 / 700 Output: Urine 400 / 400 1300 / 1300 Other: # Urine Diapers 1 Date of Last Bowel Movement 07/15/18 Narrative: GENERAL: in NAD, obese, looks comfortable sitting up in bed SKIN: Warm and dry. HEAD: Atraumatic. Normocephalic. EYES: Pupils equal and round. No scleral icterus. ENT: No nasal bleeding or discharge. Mucous membranes pink and moist. NECK: Trachea midline. No JVD. CARDIOVASCULAR: Regular rate and rhythm. RESPIRATORY: No accessory muscle use. GASTROINTESTINAL: Abdomen soft, non-tender, nondistended. MUSCULOSKELETAL: Extremities without clubbing, cyanosis, or edema. No obvious deformities. NEUROLOGICAL: Awake and alert. Oriented x3 looks comfortable, using her phone when I saw her, no nuchal rigidity no temporal tenderness visual field visual galarza full, no aphasia, fluent articulate, No facial asymmetry, OU 3-2mm, eomi , VFF, able to raise all 4 extremity gravity, tenderness at the right knee both which she states are been present for months PSYCHIATRIC:dysthymic appearing, monotone - Constitutional no acute distress - Routine HEENT Exam Head: Present: normocephalic Objective Laboratory Results - last 24 hr 07/16/18 07/16/18 07/16/18 06:26 06:26 06:26 Sodium 139 Potassium 5.1 Chloride 107 Carbon Dioxide 23.9 Anion Gap 8 BUN 29 H Creatinine 1.16 H Estimated GFR 46 L Random Glucose 86 Hemoglobin A1c 6.7 H Calcium 8.1 L Phosphorus 4.1 Total Bilirubin 0.3 AST 13 L ALT 16 Alkaline Phosphatase 88 Total Creatine Kinase 60 Total Protein 7.1 D Albumin 3.0 L D Triglycerides 193 H Cholesterol 155 LDL Cholesterol, Calc 72 HDL Cholesterol 44.8 Cholesterol/HDL Ratio 3.45 TSH 1.610 07/17/18 04:00 Sodium 138 Potassium 4.6 Chloride 104 Carbon Dioxide 26.4 Anion Gap 8 BUN 17 Creatinine 0.95 Estimated GFR 58 L Random Glucose 120 H Hemoglobin A1c Calcium 8.1 L Phosphorus Total Bilirubin AST ALT Alkaline Phosphatase Total Creatine Kinase Total Protein Albumin Triglycerides Cholesterol LDL Cholesterol, Calc HDL Cholesterol Cholesterol/HDL Ratio TSH Review/Management - Diagnosis (1) Arthritis of right hip Code(s): M16.11 - Unilateral primary osteoarthritis, right hip Status: Acute Current Visit: Yes (2) Cancer of left lung Code(s): C34.92 - Malignant neoplasm of unspecified part of left bronchus or lung Status: Acute Current Visit: No (3) Lumbar spondylosis Code(s): M47.816 - Spondylosis without myelopathy or radiculopathy, lumbar region Status: Acute Current Visit: Yes (4) Dysthymia Code(s): F34.1 - Dysthymic disorder Status: Acute Current Visit: Yes - Review/Management Plan: Appears to have acute on chronic complaints. Probable moderate right knee and hip arthritis may also have a superimposed right lumbosacral radiculopathy MRI brain negative for acute stroke Recommendation We will obtain an MRI C-spine and MRI of the L-spine possible rt l4,5 radic Right hip x-ray- negative has moderate rt knee arthritis Pain control consider palliative care for emotional support, goals of care as pt states this am "she just wants to be comfortable" may need psych eval as well
--- NOTE | 2018-07-17 10:23 | CT ---
EXAM DATE: 07/17/2018 10:17 AM EST AGE/SEX: 67 years / Female INDICATIONS: Stroke alert, altered mental status. CLINICAL DATA: This is the patient's initial encounter. Patient reports that signs and symptoms have been present for 1 day and indicates a pain score of 0/10. MEDICAL/SURGICAL HISTORY: Chronic obstructive pulmonary disease. Congestive heart failure. Hypert ension. Lung cancer. Lupus. Stroke. None. RADIATION DOSE: 56.35 CTDI (mGy) [place] [facility] [place]. . TECHNIQUE: CT of the head without contrast. Using automated exposure control and adjustment of the mA and/or kV according to patient size, radiation dose was kept as low as reasonably achievable to ob tain optimal diagnostic quality images. DICOM format image data is available electronically for revi ew and comparison. FINDINGS: Cerebrum: The ventricles are normal for age. No evidence of midline shift, mass lesion, hemorrhage or acute infarction. No extraaxial fluid collections are seen. Posterior Fossa: The cerebellum and brainstem are intact. The 4th ventricle is midline. The cerebe llopontine angle is unremarkable. Extracranial: The visualized portion of the orbits is intact. Skull: The calvaria is intact. No evidence of skull fracture. CONCLUSION: 1. No evidence of acute infarct, hemorrhage, mass or edema. 2. Stable exam compared previous study on 07/15/2018 Report was called by Dr. Skinner to Dr. Walters at 1020] Electronically signed by: Lazaro Skinner MD 07/17/2018 10:22 AM EST
[2018-07-17] MEDS ORDERED: Fosphenytoin Inj 1,000 MGPE in Sodium Chlor 0.9% Inj 50 ML IV.SIG ONE (11:00)
--- NOTE | 2018-07-17 11:10 | CT ---
EXAM DATE: 07/17/2018 11:03 AM EST AGE/SEX: 67 years / Female INDICATIONS: Stroke alert. Altered mental status. Left eye deviation. CLINICAL DATA: This is the patient's initial encounter. Patient reports that signs and symptoms have been present for 1 day and indicates a pain score of Nonresponsive. MEDICAL/SURGICAL HISTORY: Non-responsive. Non-responsive. RADIATION DOSE: 10.53 CTDI (mGy) [place] [facility] [place]. . TECHNIQUE: Volumetric scanning was performed using a multi-row detector CT scanner during bolus infu vin of 75 ml Visipaque 320 (iodixanol) nonionic water-soluble contrast as a single exam dose. The data was post processed with a variety of visualization algorithms including full volume maximum int ensity projection, multi-planar sliding thin slab reformation, curved planar reformation, and surface rendering techniques. Using automated exposure control and adjustment of the mA and/or kV according to patient size, radiation dose was kept as low as reasonably achievable to obtain optimal diagnosti c quality images. DICOM format image data is available electronically for review and comparison. FINDINGS: Anterior Circulation: Intracranial Carotid Arteries: Patent. DANILO: There is no evidence for aneurysm, vessel truncation or stenosis, and no evidence for vascular m alformation. MCA: There is no evidence for aneurysm, vessel truncation or stenosis, and no evidence for vascular m alformation. Posterior Circulation: Distal Vertebral Arteries: Distal Vertebral arteries are symetrical and patent. Basilar Artery: There is no evidence for aneurysm, vessel truncation or stenosis, and no evidence for vascular malformation. SUMMER CHILD CAREGIVER and Cerebellar Branches: There is no evidence for aneurysm, vessel truncation or stenosis, and no evidence for vascular malformation. CONCLUSION: 1. Unremarkable head CTA exam. Specifically, no large vessel occlusion. Report was called by Dr. Frankel to Dr. Walters at 11:08 AM. Electronically signed by: Abhijeet Carrillo MD 07/17/2018 11:09 AM EST
--- NOTE | 2018-07-17 11:15 | P.PN ---
Subjective Interval history: Nursing denies any acute changes overnight except for the patient being quite upset about claiming that she has not been provided a meal although she was allowed to have a diet since yesterday evening. When I examined the patient around 9:50 AM this morning she is sleeping and when I try to wake her up she is very somnolent and requires sternal rub to wake up. Upon aggressive sternal rub she wakes up and appears to be confused and has a dazed expression on her face, barely communicates at all, has only 1 word answers. When I asked her how she is feeling she says dizzy. When asked her where she is she does not answer. When asked if she wants to leave she is very softly nods her head yes. Physical Exam Vital signs: Vital Signs 07/16/18 12:00 07/16/18 12:53 07/16/18 17:39 Temperature 98.6 F 98.6 F Pulse Rate 84 87 93 H Respiratory Rate 16 18 Blood Pressure 114/59 L 107/76 Pulse Oximetry 99 98 07/16/18 19:00 07/16/18 20:00 07/16/18 23:01 Temperature 97.3 F L Pulse Rate 95 H 104 H 95 H Respiratory Rate 18 Blood Pressure 121/73 Pulse Oximetry 99 07/17/18 00:00 07/17/18 03:31 07/17/18 04:00 Temperature 98.2 F 98.3 F Pulse Rate 94 H 116 H 109 H Respiratory Rate 14 16 Blood Pressure 102/55 L 135/75 Pulse Oximetry 99 98 Intake & Output 07/16/18 07/17/18 07/17/18 18:59 06:59 18:59 Intake Total 1000 / 1000 2700 / 2700 Output Total 400 / 400 1300 / 1300 Balance 600 / 600 1400 / 1400 Weight 82 kg Intake: IV 1000 / 1000 1999 / 1999 NS Inj 1,000 ML @ 100 mls/hr IV 1000 / 1000 1999 / 1999 .CONT .Q10H BUTCH Rx#:[id number] Oral 700 / 700 Output: Urine 400 / 400 1300 / 1300 Other: # Urine Diapers 1 Date of Last Bowel Movement 07/15/18 Narrative: Heart sounds regular rate rhythm, no murmurs Clear lungs bilaterally, unlabored breathing Sleeping, awoken with sternal rub Appears dazed and confused, appears to stare off into space and does not maintain consistent eye contact Does not withdraw any of her extremities to pain, when I placed my fingers in her right fist which is already gripped she maintains a pack room operator but does not follow commands upon releasing the pack room operator There is no obvious facial droop on her face, pupils are equal and reactive bilaterally Results - Labs CBC & Chem 7: 07/17/18 11:12 07/17/18 04:00 Laboratory Results - last 24 hr 07/16/18 07/16/18 07/17/18 06:26 06:26 04:00 Sodium 138 Potassium 4.6 Chloride 104 Carbon Dioxide 26.4 Anion Gap 8 BUN 17 Creatinine 0.95 Estimated GFR 58 L POC Glucose Random Glucose 120 H Hemoglobin A1c 6.7 H Calcium 8.1 L Phosphorus 4.1 Total Creatine Kinase 60 TSH 1.610 07/17/18 10:48 Sodium Potassium Chloride Carbon Dioxide Anion Gap BUN Creatinine Estimated GFR POC Glucose 88 Random Glucose Hemoglobin A1c Calcium Phosphorus Total Creatine Kinase TSH - Imaging Impressions Carotid Doppler Study 07/16/18 00:00 CONCLUSION: No evidence for hemodynamically significant stenosis. Head MRI 07/16/18 00:00 CONCLUSION: Negative MR Brain with and without contrast. Hip X-Ray 07/16/18 00:00 CONCLUSION: No fracture, subluxation or significant joint space narrowing/arthropathy of the right hip. Head CT 07/17/18 09:51 CONCLUSION: 1. No evidence of acute infarct, hemorrhage, mass or edema. 2. Stable exam compared previous study on 07/15/2018 Report was called by Dr. Skinner to Dr. Walters at 1020] Head CTA 07/17/18 10:39 CONCLUSION: 1. Unremarkable head CTA exam. Specifically, no large vessel occlusion. Report was called by Dr. Frnakel to Dr. Walters at 11:08 AM. Assessment and Plan - Plan 67-year-old female admitted with subacute right-sided weakness and acute kidney injury. Has non-small cell lung cancer, followed by oncology. Renal function improved with IV fluids, MRI unremarkable. Communicated with neurology, stat head CT ordered. Stroke alert was called //Right upper and right lower extremity weakness w/ pain -CT brain negative for acute, magnesium stable -MRI shows no acute strokes, continue neurochecks Neurology following -TSH, CK, phosphorus, magnesium within normal limits //Non-small cell lung cancer. Stage T3N3, IIIC -Followed by Dr. Melendez -continue home prophylactic dose of Bactrim - Noted to have a nonocclusive thrombus within the right IJ incidentally on carotid ultrasound, was given Lovenox last night, Eliquis is been ordered by oncology who is also following //Nausea. -Likely secondary to dehydration, chemotherapy. -Antiemetics. //History of hypertension. -Will hold off on home blood pressure meds and monitor. lovenox
--- NOTE | 2018-07-17 11:24 | CT ---
EXAM DATE: 07/17/2018 11:18 AM EST AGE/SEX: 67 years / Female INDICATIONS: Stroke alert. Altered mental status. Left eye deviation. CLINICAL DATA: This is the patient's initial encounter. Patient reports that signs and symptoms have been present for 1 day and indicates a pain score of Nonresponsive. MEDICAL/SURGICAL HISTORY: Non-responsive. Non-responsive. RADIATION DOSE: 10.53 CTDI (mGy) COMPARISON: [facility], XR SPINE CERVICAL (MIN 4 VIEWS), 08/19/2016. . TECHNIQUE: Volumetric scanning was performed using a multirow detector CT scanner during bolus infus ion of 75 ml Visipaque 320 (iodixanol) nonionic water-soluble contrast as a cumulative dose for mult iple exams. The data was postprocessed with a variety of visualization algorithms including full-vo lume maximum intensity projection, multiplanar sliding thin-slab reformation, curved-planar reformati on, and surface-rendering techniques. Using automated exposure control and adjustment of the mA and/ or kV according to patient size, radiation dose was kept as low as reasonably achievable to obtain op timal diagnostic quality images. DICOM format image data is available electronically for review and comparison. Percent stenosis is calculated using the diameter of the stenotic region over the diameter of the nor mal distal internal carotid artery. FINDINGS: Aortic Arch: There is a three-vessel origin of the great vessels from the aorta. No evidence of ost ial narrowing Right Carotid: The common carotid artery is intact. The carotid bulb has a normal configuration wit hout ulceration or narrowing. Mixed plaque at the origin of the internal carotid artery with resultan t 20-25% stenosis. Internal carotid arteries otherwise patent to the skull base. The external carotid artery is intact. Left Carotid: The common carotid artery is intact. The carotid bulb has a normal configuration with out ulceration or narrowing. The internal carotid artery lumen is smooth without stenosis. The exte rnal carotid artery is intact. Vertebrals: The vertebral arteries have a symmetric diameter. No stenotic lesions are seen. General Findings: There is a 2.6 x 4.6 cm left apical lung mass. This is known and demonstrated on mu ltiple prior exams. CONCLUSION: 1. Mixed plaque at the origin of the right internal carotid artery with resultant 20-25% stenosis. 2. Otherwise, no hemodynamically significant stenosis involving the carotid or vertebral arteries. 3. Redemonstration of known 4.6 cm left lung mass. Electronically signed by: Abhijeet Carrillo MD 07/17/2018 11:23 AM EST
[2018-07-17 11:31] LABS: Baso % (Auto) 0.3 % (0.0-2.0); Eos % (Auto) 1.8 % (0.0-4.0); Hematocrit 28.5 % (35.0-46.0); Hemoglobin 8.9 gm/dL (11.6-15.3); Lymph # (Auto) 0.4 th/mm3 (1.0-4.8); Mean Corpuscular HGB Conc 31.3 % (32.0-36.0); Mean Corpuscular Hemoglobin 21.7 pg (27.0-34.0); Mean Corpuscular Volume 69.4 fL (80.0-100.0); Mean Platelet Volume 8.4 fL (7.0-11.0); Mono # (Auto) 0.1 th/mm3 (0.0-0.9); Mono % (Auto) 6.2 % (0.0-8.0); Neut # (Auto) 1.7 th/mm3 (1.8-7.7); Neut % (Auto) 73.7 % (16.0-70.0); Platelet Count 111 th/mm3 (150-450); Red Blood Count 4.11 mil/mm3 (4.00-5.30); Red Cell Distribution Width 18.5 % (11.6-17.2); White Blood Count 2.3 th/mm3 (4.0-11.0)
[2018-07-17 11:41] LABS: Activated Partial Thrombo Time 25.4 sec (23.4-31.7); Prothrombin Time 9.9 sec (9.8-11.6)
--- NOTE | 2018-07-17 11:46 | MB ---
cc: Chao Walters MD, PhD DATE: 07/17/2018 REASON FOR CONSULTATION: Stroke alert. HISTORY OF PRESENT ILLNESS: Ms. Robertson is a 67-year-old woman, who has a history of squamous cell carcinoma of the lung, receiving chemotherapy and radiation therapy, who was admitted with shortness of breath, fatigue, as well as weakness of the right upper and right lower extremity. Initial CT brain was negative. It was felt that she had dehydration. She also had a complaint of low back pain. This morning, she was in her usual state of health, was walking, and communicative. Last seen normal at about 8:30 in the morning. On next evaluation, was found to be minimally responsive and flaccid in general, and therefore, a Stroke Alert was called. She was taken to CT. Initial CT was negative. She was noted to have jerking activity of the left side, the left arm and left leg, which appeared to be focal seizure activity, and her eyes deviated to the left. I gave the patient 1 mg of Ativan IV, which stopped the seizure activity. She has since awakened, is responsive, moving both upper and lower extremities, but still has some right leg weakness. A CT scan of the brain was unremarkable. CTA of the brain also unremarkable. No evidence of large vessel occlusion on the CTA. The patient did have a brain MRI scan on 07/16/2018 with and without contrast, which was within normal limits. Carotid ultrasound was normal with no evidence of any significant stenosis. Echocardiogram showed ejection fraction 55% to 60%, trace mitral valve regurgitation, left ventricular systolic function normal, mild tricuspid valve regurgitation was identified. Right ventricle was normal, left atrial size normal Right atrial size normal. NEUROLOGIC EXAMINATION: VITAL SIGNS: Blood pressure is 135/75, pulse is 109, respirations are 16, temperature 98.3. HIGHER CORTICAL FUNCTION: She is currently lethargic, but arousable. She follows commands. She can tell me her name. Speech is fluent. CRANIAL NERVES: Intact. MOTOR EXAM: She has 5/5 strength focus of both upper extremities. She has some weakness of the right leg, but does complain of back pain. It is hard to tell whether this is giveaway. She has normal strength on the left. REFLEXES: Symmetric. LABORATORY DATA: Yesterday, white count 2700, hemoglobin 9.2, hematocrit 29.8%, platelet count 109,000. Today, glucose is 88. GFR is 58. Creatinine 0.95, BUN of 17, sodium 138, potassium 4.6, chloride 104, CO2 is 26.4. Urinalysis from the 07/15/2018: pH is 5, specific of 1.025, protein is 30. IMPRESSION: The patient most likely had a focal seizure, probably at the right hemisphere focus given the tonic-clonic activity identified in the left side with left gaze. No evidence of definite stroke, therefore, not a TPA candidate. RECOMMENDATIONS: I would like to repeat the MRI of the brain to be sure there is no sign of ischemia. She did have a normal MRI of brain couple days ago. No sign of metastasis. We will load the patient with Cerebyx and continue her on the Cerebyx maintenance. We will also get an EEG. Thank you for asking me to see this patient in consultation. Chao Walters MD, PhD SAÚL/greg , 11:19 AM , 11:30 AM
--- NOTE | 2018-07-17 11:58 | P.CONPAL ---
Consult Service: Palliative Care Requesting Physician: Aryan Porter Reason for Consult: a. To assist with evaluation and management of symptoms including: pain, anxiety b. To assist medical decision maker(s) with: better understanding of current medical conditions; weighing benefits/burdens of medical treatment options; making medical treatment decisions. Primary Care Provider: Olegario Galvan History of Present Illness History of Present Illness: This 67 -year-old female presented to the ED on 07/15/18, with complaints of right leg pain and dizziness. She reported onset the day before she had cramping pain in the right lower leg from the knee down to the foot. Aggravated by movement and palpation. Denies injury or trauma. She also had cramps in the left leg day of presentation which resolved. Also reporting paresthesias in hands and feet bilaterally. She reports dizziness the day before and the day of presentation. Also reports headache. Additionally endorses shortness of breath since diagnoses of lung CA and. Also reporting nausea. No vomiting, chest pain, diarrhea, fever or chills. She has known history of squamous cell carcinoma left lung, ongoing chemotherapy (last dose 2 days prior to admission) and XRT, follows outpatient with Dr. Melendez. * During ED course patient noted to be anxious, given IV Ativan. CBC with mild anemia hemoglobin 11.1, hematocrit 34.8. Platelet 134. Lactic acid 2.1. Imaging right knee= moderate to severe patellofemoral and mild to moderate medial compartment degenerative osteoarthritis. No other acute abnormalities. CXR left midlung airspace disease. Ultrasound bilateral lower extremities negative for DVT. BUN 35/creatinine 1.67, GFR 31 noted to be slightly above baseline. Troponin negative. CT brain negative for acute process. Patient continues to complain of weakness and dizziness during ED course. Orthostatics positive. Keep in observation status for IV hydration. * Carotid Doppler:Right Carotid: Mild arteriosclerotic plaque is visualized.The waveforms are within normal limits.Left Carotid: Mild arteriosclerotic plaque is visualized. The waveforms are within normal limits. CONCLUSION: No evidence for hemodynamically significant stenosis. * 2D echo: Normal LV, wall thickness normal left ventricular systolic function normal with EF 55-60%. Trace mitral valve regurg. Pressure 46. Mild tricuspid valve regurg. * PT evaluation: Patient uses Rollator walker historically. Short of breath with minimal exertion. General weakness right greater than left. * ST evaluation: Mild pharyngeal dysphasia. Recommended regular solids with thin liquids medications one at a time. * Oncology consulted: [History of recent diagnosis 05/2018 stage III non-small cell carcinoma radiotherapy. Developed pneumothorax after biopsy requiring O2 since then. At diagnosis reporting fatigue and weight loss 20-30 pounds. Generalized weakness, as well as chronic back pain / MS pain reported. She was not a candidate for surgical resection. Oncology recommended best option concurrent chemo and radiation if pulmonary function adequate. Pulmonary function tests were pending initially. Has approximately 3 weeks treatment remaining. Initial imaging noted no evidence of bony metastasis.] Leukopenia, thrombocytopenia, anemia felt to be related to chemotherapy related myelosuppression. Specific therapeutic interventions. ]Small nonocclusive thrombosis right IJ likely related to infusion port. Reasonable to initiate anticoagulation recommend intermediate dose given labile renal function and anticipated cytopenias. Right-sided weakness: Recommend MRI of cervical and thoracic spine. * MRI brain: Negative for acute process. * Neurology was consulted 07/16 for lower back pain, right-sided weakness: Upon neuro assessment patient indicating right hip, knee, back painful for months. Neck pain radiates to shoulder. Intermittent headache for months. Patient appears to have acute on chronic complaints probable moderate right knee and hip arthritis may have superimposed right lumbosacral radiculopathy. Will obtain MRI C-spine, L-spine and hip x-rays. May require OrthO evaluation pending findings. Hip x-ray negative for acute process. * 07/17 continues to complain of right leg and knee pain. Requests to be comfortable. Neurology continues to follow recommends palliative care consultation for support, as well as clarification of goals of medical treatment. May consider psych eval as well. later in the morning 07/17 pt minimally responsive, speaking 1 word at a time, STROKE ALERT Called, additional imaging ordered: * repeat CT brain = 1. No evidence of acute infarct, hemorrhage, mass or edema.2. Stable exam compared previous study on 07/15/2018 * CTA head negative no large vessel occlusion. * CTA neck: 1. Mixed plaque at the origin of the right internal carotid artery with resultant 20-25% stenosis.2. Otherwise, no hemodynamically significant stenosis involving the carotid or vertebral arteries.3. Redemonstration of known 4.6 cm left lung mass. 1300 Attempted to see pt, she is in radiation therapy. will try again later 1615 -- Return later to unit able to see patient just that she is returning from radiation, as well as MRIs. MRI C-spine =1. Prior C4-C6 bony fusion with adjacent level disease at C6-7 resulting in moderate central canal narrowing. 2. No significant neural foraminal stenosis. 3. Please see above for detailed description of each level. MRI T-spine=1. Multilevel degenerative spondylosis of the thoracic spine most prominently at T4-6 with resultant moderate central canal stenosis. 2. No significant neural foraminal stenosis. 3. Please see above for detailed description of each level 1. Expansile bony lesion involving the left-sided posterior elements at L5-S1 causing foraminal encroachment. 2. Moderate central spinal stenosis at L3-4 and L4-5 secondary to hypertrophic facet arthropathy. 3. Intact disc spaces without evidence of herniation. 4. No evidence of pathologic compression fracture. Patient is alert, observed ambulating fairly well with walker. She is slightly short of breath with this activity. Met with her at length at bedside, she is seated on side of bed. Dual visit with Leanna Garcia APRN. Exploration of her psychosocial, medical history. She has had chronic back pain for many years secondary to arthritic processes as well as previous spinal surgery. She has had some abdominal pain as well. She reviews GI issues which led to fundoplication surgery. Most recently she has had continued significant pain to right leg, right hip, right knee. She is also having some vague nonspecific abdominal pain. She is having intermittent nausea but no vomiting. She also reports some wheezing. She also endorses ongoing anxiety which has been chronic for her anxiety gets worse when pain is worse. It is difficult to obtain full history she indicates that she had been following with pain management and he had gotten multiple labs imaging etc. and that he had a PET scan that showed metastasis of her cancer, however that she was not formally diagnosed or told she had cancer until just this past April or May. She indicates they (providers) knew well before that ,that she had cancer. She is angry that this was kept from her. She endorses that oncology told her she has a 22% of having a year or so longer life if chemotherapy successful. On the other hand without any treatment she might have 6 months. She endorses she wants to try the chemotherapy to see if she can live a little longer and feel better on the other hand she might be open to hospice if she declines and does not improve. She has 4 adult children she would want all of them to proxy decision makers if she is incapacitated. She has not put any designation in writing. Exploration of CODE STATUS she requests DNR. She is adamant that she not be on machines. For right now she wishes to continue aggressive therapy and maximize pain control and nausea control. She is also amenable to nebulizers for wheezing. She wishes to change her Zofran dose to the 8 mg dose she was receiving outpatient. She endorses that the pain was fairly well controlled outpatient with Strum 10 though the Strum 5 here in the hospital is not fully effective. She indicates she had been using anxiety medicine 2-3 times with good results and that when her anxiety is well controlled her pain is better controlled. Discussed with covering nurse primary nurse off of unit, previously discussed with medical attending. Function/Cognitive Trajectory: Lives at home alone, independent with all ADLs. No cognitive deficits reported. Review of Systems Constitutional: Reports weakness, Denies anorexia, Denies daytime sleepiness, Denies increased appetite Eyes: Denies change in vision Ears, Nose, Mouth, and Throat: Denies sore throat Cardiovascular: Reports shortness of breath with activity, Denies chest pain Respiratory: Reports shortness of breath, Reports shortness of breath with activity, Reports wheezing, Denies cough Gastrointestinal: Reports nausea, Denies constipation, Denies cramping, Denies difficulty swallowing, Denies vomiting Genitourinary: Denies blood in urine, Denies urinary urgency Musculoskeletal: Reports back pain, Reports joint pain Skin/Breast: Denies rash Neurologic: Reports radiating pain, Denies headache(s), Denies localized weakness, Denies memory loss Psychiatric: Reports anxiety, Denies confusion, Denies memory loss [facility] - History History Provided By: Patient - Medical History Medical History: Medical History (Last Reviewed 07/17/18 @ 17:04 by KIRT Goldman) Arthritis Back pain CHF (congestive heart failure) Cataract Diverticulitis GERD (gastroesophageal reflux disease) Head injury Heartburn Hiatal hernia Hx of headache Neck pain On home oxygen therapy Port catheter in place Renal disease Shortness of breath Thalassemia Anemia Anxiety COPD (chronic obstructive pulmonary disease) Gastric ulcer H/O pelvic mass Heart disease History of hysterectomy Hypertension Liver problem Lung cancer Lupus Osteoarthritis Osteoporosis Pneumothorax after biopsy Stroke - Surgical History Surgical History: Surgical History (Last Reviewed 07/17/18 @ 17:04 by KIRT Goldman) History of neck surgery History of fundoplication Hx of cataract surgery Hx of removal of ovary - Family History Family History: Family History (Last Reviewed 07/17/18 @ 17:04 by KIRT Goldman) Father Lung cancer Brother Prostate cancer Daughter Breast cancer - Tobacco History Second Hand Smoke Exposure: No Tobacco Use In Past 30 Days: No Smoking Status: Former smoker Tobacco Type: Cigarettes - Alcohol History How Often Do You Have a Drink Containing Alcohol: Never - Substance Use History Substance History: No History of Abuse - Travel History Recent Travel in the [place] Within the Last 8 Weeks: No Recent Travel Out of the Country Within the Last 8 Weeks: No - Immunization History Tetanus Immunization: Unsure Medications and Allergies Active Medications: Active Medications Acetaminophen (Tylenol) 650 mg PO Q6H PRN PRN Reason: pain if pt refuses norco Hydrocodone Bitart/Acetaminophen (Strum 5/325) 1 tab PO Q4H PRN PRN Reason: pain 1 to 10 Last Admin: 07/16/18 00:59 Dose: 1 tab Al Hydroxide/Mg Hydroxide (Milk Of Magnesia Liq) 30 ml PO Q12H PRN PRN Reason: Mild Constipation Apixaban (Eliquis) 2.5 mg PO BID BUTCH Bisacodyl (Dulcolax Supp) 10 mg RECTAL DAILY PRN PRN Reason: SEVERE CONSITIPATION Hydroxyzine Pamoate (Vistaril) 50 mg PO Q6H PRN PRN Reason: ANXIETY Last Admin: 07/17/18 02:28 Dose: 50 mg Sodium Chloride (Ns Inj) 1,000 mls @ 100 mls/hr IV.CONT .Q10H BUTCH Last Admin: 07/17/18 02:41 Dose: 100 mls/hr Fosphenytoin Sodium 1,000 mgpe (/ Sodium Chloride) 70 mls @ 70 mls/hr IV.SIG STAT ONE Stop: 07/17/18 11:59 Fosphenytoin Sodium 100 mgpe/ (Sodium Chloride) 52 mls @ 208 mls/hr IV.SIG Q8HR BUTCH Lactulose (Lactulose Liq) 30 ml PO DAILY PRN PRN Reason: SEVERE CONSITIPATION Lorazepam (Ativan Inj) 1 mg IV.PUSH Q4H PRN PRN Reason: SEIZURES Melatonin (Melatonin) 5 mg PO HS PRN PRN Reason: INSOMNIA Last Admin: 07/16/18 00:55 Dose: 5 mg Ondansetron HCl (Zofran Odt) 4 mg PO Q6H PRN PRN Reason: Nausea Or Vomiting Last Admin: 07/17/18 02:28 Dose: 4 mg Sennosides (Senokot) 17.2 mg PO Q12H PRN PRN Reason: Moderate Constipation Sodium Chloride (Ns Flush) 2 ml IV.FLUSH BID [facility] Last Admin: 07/17/18 08:29 Dose: 2 ml Sodium Chloride (Ns Flush) 2 ml IV.FLUSH PRN PRN PRN Reason: FLUSH AFTER USING IV ACCESS Trimethoprim/Sulfamethoxazole (Bactrim Ds) 1 tab PO DAILY [facility] Last Admin: 07/17/18 08:27 Dose: 1 tab Allergies Allergy/AdvReac Type Severity Reaction Status Date / Time aspirin Allergy Severe Bleeding Verified 06/01/18 09:18 morphine Allergy Severe STS CAN'T Verified 06/01/18 09:18 BREATH, RASH vancomycin Allergy Intermediate severe Verified 06/01/18 09:18 itching and hives naproxen AdvReac Severe STS BLOOD Verified 06/01/18 09:18 IN URINE Home Medications Medication Instructions Recorded Confirmed Type amlodipine-benazepril 1 cap PO DAILY 05/18/18 07/15/18 History hydrocodone-acetaminophen 1 tab PO Q6HR PRN 05/18/18 07/15/18 History sulfamethoxazole-trimethoprim 1 tab PO DAILY 07/15/18 07/15/18 History [Bactrim DS] Advance Directives Living Will: No Healthcare Surrogate: No Ethical and Legal Issues: Patient currently capacitated and able to make her own decisions. She indicates she would want all of her adult children to serve as proxy decision makers for her, that she would not want to burden just 1 of them being a decision Physical Exam Vital Signs: Vital Signs - 24 hr 07/16/18 12:00 07/16/18 12:53 07/16/18 17:39 Temperature 98.6 F 98.6 F Pulse Rate 84 87 93 H Respiratory Rate 16 18 Blood Pressure 114/59 L 107/76 Pulse Oximetry 99 98 07/16/18 19:00 07/16/18 20:00 11/08/18 23:01 Temperature 97.3 F L Pulse Rate 95 H 104 H 95 H Respiratory Rate 18 Blood Pressure 121/73 Pulse Oximetry 99 07/17/18 00:00 07/17/18 03:31 07/17/18 04:00 Temperature 98.2 F 98.3 F Pulse Rate 94 H 116 H 109 H Respiratory Rate 14 16 Blood Pressure 102/55 L 135/75 Pulse Oximetry 99 98 I&O: Intake & Output 07/15/18 07/16/18 07/17/18 07/18/18 06:59 06:59 06:59 06:59 Intake Total 1000 / 1000 3700 / 3700 Output Total 100 / 100 1700 / 1700 Balance 900 / 900 1999 Weight 84 kg 82 kg Physical Exam: CONSTITUTIONAL/GENERAL: This is an adequately nourished patient, in no apparent distress. TUBES/LINES/DRAINS: Port access right chest, nasal cannula O2 SKIN: No jaundice, rashes, or lesions. No wounds seen anteriorly. Skin temperature appropriate. Not diaphoretic. HEAD: Atraumatic. Normocephalic. EYES: Pupils equal and round and reactive. Extraocular motions intact. No scleral icterus. No injection or drainage. Fundi not examined. ENT: Hearing grossly normal. Nose without bleeding or purulent drainage. Throat without visible erythema, exudates, masses, or lesions. NECK: Trachea midline. Supple, nontender. No palpable thyroid enlargement or nodularity. CARDIOVASCULAR: Regular rate and rhythm without murmurs, gallops, or rubs. No JVD. Peripheral pulses symmetric. RESPIRATORY/CHEST: Symmetric, unlabored respirations. Mildly short of breath with activity. Clear to auscultation, decreased air movement. Breath sounds equal bilaterally. GASTROINTESTINAL: Abdomen soft, mildly tender, nondistended. Well-healed scar at umbilicus, right abdomen. Seated on side of bed so somewhat limited palpationno palpable masses. No guarding. Bowel sounds present. GENITOURINARY: Without palpable bladder distension. MUSCULOSKELETAL: Extremities without clubbing, cyanosis, or edema. No joint tenderness or effusion noted. No calf tenderness. NEUROLOGICAL: Awake and alert oriented x3. Appropriate. Appears to have reasonable insight. Mildly anxious. Motor and sensory grossly within normal limits. Follows commands. Cognitively sharp. Moves all extremities. PSYCHIATRIC: Mildly anxious. Diagnostic Tests Laboratory: Laboratory Results - last 72 hr 07/15/18 07/15/18 07/15/18 14:30 14:30 14:30 WBC 4.5 RBC 5.09 Hgb 11.1 L Hct 34.8 L MCV 68.4 L MCH 21.9 L MCHC 32.0 RDW 18.7 H Plt Count 134 L MPV 8.3 Neut % (Auto) 80.9 H Lymph % (Auto) 13.8 Kaufman % (Auto) 4.6 Eos % (Auto) 0.3 Baso % (Auto) 0.4 Neut # (Auto) 3.7 Lymph # (Auto) 0.6 L [place]man # (Auto) 0.2 Eos # (Auto) 0.0 Baso # (Auto) 0.0 WBC Differential . Differential Comment Auto diff final PT 9.8 INR 1.0 APTT 20.8 L Sodium 138 Potassium 4.5 Chloride 104 Carbon Dioxide 22.8 Anion Gap 11 BUN 35 H Creatinine 1.67 H Estimated GFR 31 L POC Glucose Random Glucose 87 Hemoglobin A1c Lactic Acid Calcium 8.5 Phosphorus Magnesium 2.0 Total Bilirubin 0.4 AST 14 L ALT 20 Alkaline Phosphatase 101 Total Creatine Kinase Troponin I Less than 0.02 L Total Protein 8.7 H Albumin 3.7 Triglycerides Cholesterol LDL Cholesterol, Calc HDL Cholesterol Cholesterol/HDL Ratio Lipase 40 L TSH Urine Color Urine Clarity Urine pH Ur Specific [place] Urine Protein Urine Glucose (UA) Urine Ketones Urine Occult Blood Urine Nitrate Urine Bilirubin Urine Urobilinogen Ur Leukocyte Esterase Urine RBC Urine WBC Ur Squamous Epith Cells Uric Acid Crystals Hyaline Casts Urine Mucus Micro UA Comment Ur Microscopic Review Urine Culture Comments 07/15/18 07/15/18 07/15/18 14:30 16:30 17:30 WBC RBC Hgb Hct MCV MCH MCHC RDW Plt Count MPV Neut % (Auto) Lymph % (Auto) Kaufman % (Auto) Eos % (Auto) Baso % (Auto) Neut # (Auto) Lymph # (Auto) [place]aufman # (Auto) Eos # (Auto) Baso # (Auto) WBC Differential Differential Comment PT INR APTT Sodium Potassium Chloride Carbon Dioxide Anion Gap BUN Creatinine Estimated GFR POC Glucose Random Glucose Hemoglobin A1c Lactic Acid 2.1 H 1.6 Calcium Phosphorus Magnesium Total Bilirubin AST ALT Alkaline Phosphatase Total Creatine Kinase Troponin I Total Protein Albumin Triglycerides Cholesterol LDL Cholesterol, Calc HDL Cholesterol Cholesterol/HDL Ratio Lipase TSH Urine Color Yellow Urine Clarity Turbid H Urine pH 5.0 Ur Specific [place] 1.025 Urine Protein 30 H Urine Glucose (UA) Negative Urine Ketones Negative Urine Occult Blood Negative Urine Nitrate Negative Urine Bilirubin Negative Urine Urobilinogen Less than 2 Ur Leukocyte Esterase Negative Urine RBC 3 Urine WBC 2 Ur Squamous Epith Cells 2 Uric Acid Crystals Many H Hyaline Casts 5 Urine Mucus Few H Micro UA Comment Culture not ind Ur Microscopic Review Not Reportable Urine Culture Comments Culture not ind 07/16/18 07/16/18 07/16/18 06:26 06:26 06:26 WBC 2.7 L RBC 4.26 Hgb 9.2 L Hct 29.8 L MCV 69.9 L MCH 21.6 L MCHC 31.0 L RDW 18.4 H Plt Count 109 L MPV 8.4 Neut % (Auto) 74.6 H Lymph % (Auto) 17.8 Kaufman % (Auto) 5.9 Eos % (Auto) 1.2 Baso % (Auto) 0.5 Neut # (Auto) 2.0 Lymph # (Auto) 0.5 L [place]man # (Auto) 0.2 Eos # (Auto) 0.0 Baso # (Auto) 0.0 WBC Differential . Differential Comment Auto diff final PT INR APTT Sodium 139 Potassium 5.1 Chloride 107 Carbon Dioxide 23.9 Anion Gap 8 BUN 29 H Creatinine 1.16 H Estimated GFR 46 L POC Glucose Random Glucose 86 Hemoglobin A1c 6.7 H Lactic Acid Calcium 8.1 L Phosphorus Magnesium Total Bilirubin 0.3 AST 13 L ALT 16 Alkaline Phosphatase 88 Total Creatine Kinase Troponin I Total Protein 7.1 D Albumin 3.0 L D Triglycerides 193 H Cholesterol 155 LDL Cholesterol, Calc 72 HDL Cholesterol 44.8 Cholesterol/HDL Ratio 3.45 Lipase TSH Urine Color Urine Clarity Urine pH Ur Specific [place] Urine Protein Urine Glucose (UA) Urine Ketones Urine Occult Blood Urine Nitrate Urine Bilirubin Urine Urobilinogen Ur Leukocyte Esterase Urine RBC Urine WBC Ur Squamous Epith Cells Uric Acid Crystals Hyaline Casts Urine Mucus Micro UA Comment Ur Microscopic Review Urine Culture Comments 07/16/18 07/17/18 07/17/18 06:26 04:00 10:48 WBC RBC Hgb Hct MCV MCH MCHC RDW Plt Count MPV Neut % (Auto) Lymph % (Auto) Kaufman % (Auto) Eos % (Auto) Baso % (Auto) Neut # (Auto) Lymph # (Auto) [place]man # (Auto) Eos # (Auto) Baso # (Auto) WBC Differential Differential Comment PT INR APTT Sodium 138 Potassium 4.6 Chloride 104 Carbon Dioxide 26.4 Anion Gap 8 BUN 17 Creatinine 0.95 Estimated GFR 58 L POC Glucose 88 Random Glucose 120 H Hemoglobin A1c Lactic Acid Calcium 8.1 L Phosphorus 4.1 Magnesium Total Bilirubin AST ALT Alkaline Phosphatase Total Creatine Kinase 60 Troponin I Total Protein Albumin Triglycerides Cholesterol LDL Cholesterol, Calc HDL Cholesterol Cholesterol/HDL Ratio Lipase TSH 1.610 Urine Color Urine Clarity Urine pH Ur Specific [place] Urine Protein Urine Glucose (UA) Urine Ketones Urine Occult Blood Urine Nitrate Urine Bilirubin Urine Urobilinogen Ur Leukocyte Esterase Urine RBC Urine WBC Ur Squamous Epith Cells Uric Acid Crystals Hyaline Casts Urine Mucus Micro UA Comment Ur Microscopic Review Urine Culture Comments 07/17/18 11:12 WBC 2.3 L RBC 4.11 Hgb 8.9 L Hct 28.5 L MCV 69.4 L MCH 21.7 L MCHC 31.3 L RDW 18.5 H Plt Count 111 L MPV 8.4 Neut % (Auto) 73.7 H Lymph % (Auto) 18.0 Kaufman % (Auto) 6.2 Eos % (Auto) 1.8 Baso % (Auto) 0.3 Neut # (Auto) 1.7 L Lymph # (Auto) 0.4 L [place] # (Auto) 0.1 Eos # (Auto) 0.0 Baso # (Auto) 0.0 WBC Differential . Differential Comment Auto diff final PT INR APTT Sodium Potassium Chloride Carbon Dioxide Anion Gap BUN Creatinine Estimated GFR POC Glucose Random Glucose Hemoglobin A1c Lactic Acid Calcium Phosphorus Magnesium Total Bilirubin AST ALT Alkaline Phosphatase Total Creatine Kinase Troponin I Total Protein Albumin Triglycerides Cholesterol LDL Cholesterol, Calc HDL Cholesterol Cholesterol/HDL Ratio Lipase TSH Urine Color Urine Clarity Urine pH Ur Specific [place] Urine Protein Urine Glucose (UA) Urine Ketones Urine Occult Blood Urine Nitrate Urine Bilirubin Urine Urobilinogen Ur Leukocyte Esterase Urine RBC Urine WBC Ur Squamous Epith Cells Uric Acid Crystals Hyaline Casts Urine Mucus Micro UA Comment Ur Microscopic Review Urine Culture Comments Result Diagrams: 07/17/18 11:12 07/17/18 04:00 Imaging: Impressions Chest X-Ray 07/15/18 14:11 CONCLUSION: Left midlung airspace disease Right [id number]. COPD. Head CT 07/15/18 14:11 CONCLUSION: 1. Stable exam. 2. No evidence of acute infarct, hemorrhage, mass or edema. Knee X-Ray 07/15/18 14:28 CONCLUSION: 1. 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 Venous Doppler Study 07/15/18 14:28 CONCLUSION: 1. No sonographic evidence for lower extremity DVT. Carotid Doppler Study 07/16/18 00:00 CONCLUSION: No evidence for hemodynamically significant stenosis. Head MRI 07/16/18 00:00 CONCLUSION: Negative MR Brain with and without contrast. Hip X-Ray 07/16/18 00:00 CONCLUSION: No fracture, subluxation or significant joint space narrowing/arthropathy of the right hip. Head CT 07/17/18 09:51 CONCLUSION: 1. No evidence of acute infarct, hemorrhage, mass or edema. 2. Stable exam compared previous study on 07/15/2018 Report was called by Dr. Skinner to Dr. Walters at 1020] Head CTA 07/17/18 10:39 CONCLUSION: 1. Unremarkable head CTA exam. Specifically, no large vessel occlusion. Report was called by Dr. Frankel to Dr. Walters at 11:08 AM. Neck CTA 07/17/18 10:39 CONCLUSION: 1. Mixed plaque at the origin of the right internal carotid artery with resultant 20-25% stenosis. 2. Otherwise, no hemodynamically significant stenosis involving the carotid or vertebral arteries. 3. Redemonstration of known 4.6 cm left lung mass. Patient/Family Conference Family Conference Time: 50 Family Conference Location: Bedside Issues Discussed: Met with patient at bedside discussion included the following: * Palliative care role, purpose, approach * Additional medical, psychosocial, and spiritual history * Patients general health, functional status, and cognitive changes in the months leading up to the current hospitalization * Patient/family understanding of the current medical problems * Patient/family understanding of prognosis * Patients goals of care as best understood from advance directives and/or conversations and/or values * Current medical treatment options and benefits/burdens of those options * Likely scenarios comparing ongoing aggressive care with a transition to comfort measures only * Questions answered to the best of my ability * CODE STATUS * Advanced directives * Palliative care contact information provided Patient appears to have a generally good understanding of conditions and prognosis. See HPI for additional details regarding conversations. 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 Supported by 3 adult children. Lives alone. Not . Spiritual: Anglican, would want Form Presser to visit, notified sterile processing technician here Legal:Patient currently capacitated and able to make her own decisions. She indicates she would want all of her adult children to serve as proxy decision makers for her, that she would not want to burden just 1 of them being a decision Ethical issues impacting care: No ethical issues identified Important Contacts: Kristen Freire dtr [phone] Prognosis: This patient was admitted for weakness, dizziness, leg pain. She has underlying history of nonsmall cell lung carcinoma, currently undergoing radiation, chemotherapy. She earlier today had altered mental status and stroke alert was called though stroke workup has been negative thus far. She continues to have chronic pain syndromes. Appears likely current conditions can be stabilized and she can be returned to her most recent status home. She does remain at risk for ongoing complications and setbacks secondary to multiple chronic medical comorbidities as well as underlying oncology diagnoses. If goals became comfort oriented she would be appropriate for hospice. Code Status: Full Code Plan: Legal decision maker:Patient currently capacitated and able to make her own decisions. She indicates she would want all of her adult children to serve as proxy decision makers for her, that she would not want to burden just 1 of them being a decision Goals: Goals aggressive at this time, short of CPR. She is adamant she does not want resuscitation. She wishes to have better pain control, better nausea control here in the hospital and get back out to her prior status. She wishes to continue with chemotherapy and radiation though might consider hospice in the future if this is not effective in slowing or stopping disease progression. CODE STATUS: DNR. SYMPTOMS: --Pain-multiple chronic pain syndromes including underlying arthritic disease process, previous spinal surgery, multiple imaging obtained here essentially no new acute processes. Indicates in the outpatient status has previously gone to pain management had spinal injections did also has some vague abdominal pain sounds like might be adhesions. Abdominal exam is essentially benign. Patient endorses reasonably well-controlled pain utilizing Strum 10, indicates Strum 5 has not been effective. She indicates someone offered discussion regarding methadone and she is absolutely not wanting to take medication that is also used for drug rehabilitation. Explained the benefits and burdens of using longer acting drugs such as methadone and fentanyl when other opiates are no longer effective in chronic opiate use, chronic pain. At this time she wishes to return to using Strum 10 which she feels is effective. Recommend changing current prn to Strum 10 mg every 6 hours PRN pain. --Anxiety-she appears to have long-term anxiety, likely this is compounded by oncology diagnosis as well as chronic pain syndromes. She may be a good candidate for longer term antianxiety such as SSRI . We did not get to discuss this today. She indicates fairly good control using 2-3 day PO anti anxiety. could continue vistaril Q 6 hour, or consider low dose benzo such as 0.25mg Xanax or ativan, PO Q 6-8 HR PRN . cautious use given recent AMS, though workup neg for CVA -- nausea- intermittent nausea, no vomiting. may be r/t chemo, cancer, as well as GI hx/history of fundoplication, requires very small meals frequently throughout the day. She indicates she was taking the Zofran 8 mg out 4 mg. Recommend Zofran 8 mg q. 8-hour as needed nausea. -- wheezing- c/o intermittent wheezing w dyspnea. Add PRN nebulizers. May benefit from home nebulizers PRN as well. ADD Palliative care will continue to follow during hospital course as condition evolves, to assist patient/decision-maker with understanding of medical conditions, weighing benefits/burdens of treatment options, for clarification of goals of treatment. Additionally will assist with any symptoms of palliative concern Appreciation Thank you for the opportunity to participate in the care of Teresa Robertson. Attestation Attestation: To help prompt me to consider important information that might be impacting today's encounter and assessment, information from prior notes written by myself or my colleagues may have been "brought forward" into today's note. My signature on this note, however, is an attestation that I personally performed the exam, history, and/or decision-making noted today, and, unless otherwise indicated, the interactions with patient, family, and staff as well as the review of records all occurred today. I also attest that the listed assessment and stated plan reflect my best clinical judgment today based on the combination of historical information, prior notes, and today's exam/ interactions. When time spent is documented, it refers only to time spent today by the signer, or if indicated, combined time spent today by collaborating physician/nurse practitioner.
[2018-07-17 12:08] LABS: Creatine Kinase 157 U/L (26-192)
--- NOTE | 2018-07-17 15:13 | MR ---
EXAM DATE: 07/17/2018 3:00 PM EST AGE/SEX: 67 years / Female INDICATIONS: Weakness. CLINICAL DATA: This is the patient's initial encounter. Patient reports that signs and symptoms have been present for 1 day and indicates a pain score of 0/10. MEDICAL/SURGICAL HISTORY: Carcinoma, lung. Lupus. Renal insufficiency. . Neck surgery. Ovary removal. Cataract. COMPARISON: [facility], CTA NECK W CONTRAST W 3D, 07/17/2018. . TECHNIQUE: Multiplanar, multisequence MRI of the thoracic spine was performed. FINDINGS: VERTEBRAE: Normal vertebral body height. Homogeneous marrow signal. ALIGNMENT: Normal. CORD: Slight flattening of the cord at T4-5 and T5-6 without cord signal abnormality. T1-T2: Posterior disc osteophytes with mild effacement of the anterior thecal sac. Neural foramina a ppear grossly intact. T2-T3: The thecal sac has a normal diameter. No evidence of disc bulge or protrusion. T3-T4: The thecal sac has a normal diameter. No evidence of disc bulge or protrusion. T4-T5: Posterior disc osteophytes effacing the anterior thecal sac. Central canal measures 8 mm. No significant neural foraminal stenosis. T5-T6: Posterior disc osteophytes effacing the anterior thecal sac. Central canal measures approxima tely 9 mm. No significant neural foraminal stenosis. T6-T7: Posterior disc osteophytes with mild effacement anterior thecal sac. No significant neural fo raminal stenosis. T7-T8: Posterior disc osteophytes with mild effacement anterior thecal sac. No significant neural fo raminal stenosis. T8-T9: Posterior disc osteophytes with effacement anterior thecal sac slightly eccentric to the left . No significant neural foraminal stenosis. T9-T10: The thecal sac has a normal diameter. No evidence of disc bulge or protrusion. T10-T11: The thecal sac has a normal diameter. No evidence of disc bulge or protrusion. T11-T12: Bilateral facet arthropathy with effacement of the posterior left lateral recess. Neural fo ramina are patent. T12-L1: The thecal sac has a normal diameter. No evidence of disc bulge or protrusion. CONCLUSION: 1. Multilevel degenerative spondylosis of the thoracic spine most prominently at T4-6 with resultant moderate central canal stenosis. 2. No significant neural foraminal stenosis. 3. Please see above for detailed description of each level. Electronically signed by: Abhijeet Carrillo MD 07/17/2018 3:12 PM EST
--- NOTE | 2018-07-17 15:29 | MR ---
EXAM DATE: 07/17/2018 3:22 PM EST AGE/SEX: 67 years / Female INDICATIONS: Weakness. CLINICAL DATA: This is the patient's initial encounter. Patient reports that signs and symptoms have been present for 1 day and indicates a pain score of 0/10. MEDICAL/SURGICAL HISTORY: Carcinoma, lung. Lupus. Renal insufficiency, chronic. . Neck surger y. Ovary removal. Cataract. COMPARISON: [facility] [place] W CONTRAST W 3D, 07/17/2018. . TECHNIQUE: Multiplanar, multisequence MRI examination of the cervical spine was performed without co ntrast. FINDINGS: VERTEBRAE: No bony fusion of C4-C6. Vertebral body heights are intact and demonstrate uniform signal . ALIGNMENT: Loss of normal cervical lordosis. Sagittal alignment is maintained. CORD: Normal configuration and signal. POST FOSSA: The cerebellar tonsils are normal in position. C2-C3: Prominent anterior osteophytes. Posterior disc osteophytes with mild effacement anterior theca l sac. Mild bilateral facet arthropathy. No significant neural foraminal stenosis. C3-C4: Prominent anterior osteophytes. Posterior disc osteophytes with mild bilateral facet arthropat hy. Mild effacement anterior thecal sac. Mild right neural foraminal narrowing. C4-C5: Prior bony fusion with posterior osteophytes effacing the anterior thecal sac. Mild right neur al foraminal narrowing. C5-C6: Bilateral bony fusion with posterior osteophytes effacing the anterior thecal sac. No signific ant neural foraminal stenosis. C6-C7: Posterior disc osteophytes and mild bilateral facet arthropathy. Effacement anterior thecal sa c with subtle flattening of the cervical cord but no cord signal abnormality. Mild right neural claudio inal narrowing. C7-T1: No epidural impressions seen. CONCLUSION: 1. Prior C4-C6 bony fusion with adjacent level disease at C6-7 resulting in moderate central canal n arrowing. 2. No significant neural foraminal stenosis. 3. Please see above for detailed description of each level. Electronically signed by: Abhijeet Carrillo MD 07/17/2018 3:28 PM EST
--- NOTE | 2018-07-17 15:43 | MR ---
EXAM DATE: 07/17/2018 3:38 PM EST AGE/SEX: 67 years / Female INDICATIONS: CVA. CLINICAL DATA: This is the patient's initial encounter. Patient reports that signs and symptoms have been present for 1 day and indicates a pain score of 0/10. MEDICAL/SURGICAL HISTORY: Carcinoma, lung. Lupus. Congestive heart failure. . Neck surgery. Ovary removal. Cataract. COMPARISON: [facility] – [place], CTA HEAD W CONTRAST W 3D, 07/17/2018. . TECHNIQUE: Multiplanar, multisequence examination of the brain was performed without contrast. FINDINGS: Cerebrum: The ventricles are normal for age. No evidence of midline shift, mass lesion, hemorrhage or acute infarction. No extraaxial fluid collections are seen. The pituitary gland and suprasellar cistern are normal in configuration. White Matter: Mild to moderate periventricular and scattered focal white matter T2 prolongation. Posterior Fossa: The cerebellum and brainstem are intact. The 4th ventricle is midline. The cerebel lopontine angle is unremarkable. The cerebellar tonsils are normal in position. Diffusion Imaging: No focal areas of restricted diffusion are seen. No evidence of acute infarction . Extracranial: The visualized portions of the orbits and paranasal sinuses are unremarkable. CONCLUSION: 1. Nonspecific periventricular white matter signal abnormalities likely reflecting ischemic white ma tter demyelination. Differential considerations include demyelinating process in the appropriate clin ical setting. 2. Otherwise, no acute abnormality. Specifically, no acute infarction, hemorrhage or mass. Electronically signed by: Abhijeet Carrillo MD 07/17/2018 3:42 PM EST
--- NOTE | 2018-07-17 15:50 | MR ---
EXAM DATE: 07/17/2018 3:40 PM EST AGE/SEX: 67 years / Female INDICATIONS: Weakness. CLINICAL DATA: This is the patient's initial encounter. Patient reports that signs and symptoms have been present for 1 day and indicates a pain score of 0/10. MEDICAL/SURGICAL HISTORY: Carcinoma, lung. Chronic renal insufficiency. Congestive heart fail ure. . Neck surgery. Ovary removal. Cataract. COMPARISON: No prior exams available for comparison. TECHNIQUE: Multiplanar, multisequence MRI of the lumbar spine was performed without contrast. Patie nt was scanned in a sitting position; neutral, flexion, and extension scans were performed in the sa gittal plane. FINDINGS: Vertebra: Expansile destructive mass is identified along the left-sided posterior elements at the L5 -S1 level. The mass measures 3.1 x 3.1 cm in size. There is effacement of the left neural foramen. Th ere is no significant intraspinal extension or epidural mass effect. Lumbar vertebral bodies are otherwise intact. Hypertrophic facet arthropathy is identified at L3-4 and L4-5. There is joint space narrowing with [place] hypertrophy. Moderate central spinal canal narrowing is noted at L3-4 and L4-5. Conus: Normal level and configuration. T12-L1: The thecal sac has a normal diameter. No evidence of disc bulge or protrusion. The neural foramina are patent bilaterally. L1-L2: The thecal sac has a normal diameter. No evidence of disc bulge or protrusion. The neural foramina are patent bilaterally. L2-L3: The thecal sac has a normal diameter. No evidence of disc bulge or protrusion. The neural foramina are patent bilaterally. L3-L4: The thecal sac has a normal diameter. No evidence of disc bulge or protrusion. The neural foramina are patent bilaterally. L4-L5: The thecal sac has a normal diameter. No evidence of disc bulge or protrusion. The neural foramina are patent bilaterally. L5-S1: The thecal sac has a normal diameter. No evidence of disc bulge or protrusion. The neural foramina are patent bilaterally. CONCLUSION: 1. Expansile bony lesion involving the left-sided posterior elements at L5-S1 causing foraminal encr oachment. 2. Moderate central spinal stenosis at L3-4 and L4-5 secondary to hypertrophic facet arthropathy. 3. Intact disc spaces without evidence of herniation. 4. No evidence of pathologic compression fracture. Electronically signed by: Lazaro Skinner MD 07/17/2018 3:49 PM EST
--- NOTE | 2018-07-17 16:11 | ECG ---
Date Performed: 07/17/2018 Time Performed: 11:14:40 PTAGE: 67 years EKG: Sinus rhythm Since previous tracing, no significant change noted NORMAL ECG PREVIOUS TRACING : 07/15/2018 14.30 DOCTOR: Renita Tripp Interpretating Date/Time 07/17/2018 16:09:36
--- NOTE | 2018-07-17 19:50 | HM ---
Date Performed: 07/16/2018 Time Performed: 18:44:00 HOOKUP DATE: 07/16/18 06:44:00 PM Lisa ANALYSIS START TIME: 07/16/2018 6:49:00 PM ANALYSIS END TIME: 07/17/2018 12:25:52 PM PATIENT AGE: 67 PATIENT HEIGHT: 56 PATIENT WEIGHT: 185 DRUG LIST: ROOM 232 PATIENT DIAGNOSIS: DIZZINESS TEST NARRATIVE: The patient's average heart rate was 100 BPM. Heart rates greater than 120 BPM were noted 6% of the time. No episodes of bradycardia were noted. No pauses exceeding 2.0 se conds were noted. No ventricular ectopics were noted. 40 supraventricular ectopics, which rep resented < 1% of the total beat count, were noted. The highest supraventricular ectopic frequency oc curred from 01:00 AM to 02:00 AM Fri. During this time 12 SVE(s) occurred. In channel 1, a singl e episode of ST depression (defined as -1.0 mm or more) occurred at 11:09:08 PM Lisa with a maximum de pression of -1.4 mm. No episodes of ST depression (defined as -1.0 mm or more) were noted in channel 2. Multiple episodes of ST depression (defined as -1.0 mm or more) were noted in channel 3. The m aximum depression of -2.2 mm occurred at 04:11:04 AM Fri. NO DIARY WAS GIVEN TO PATIENT TEST INTERPRETATION: No diary was given to the patient. The underlying rhythm is Sinus rhythm with average rate 100 bpm and range of 77 to 135 bpm. No significant pauses are present. No ventricu lar ectopy is seen. Rare premature atrial contractions are seen with a single, four beat atrial run. There are episodes where the OK interval is slightly short with widening of the QRS. I cannot exclude an accessory pathway. Signed by : Ruslan Matthews
[2018-07-17] MEDS: Melatonin 5 MG Tablet PO PRN (21:16)
--- NOTE | 2018-07-17 21:59 | MG ---
cc: Chao Walters MD, PhD TEST NUMBER: [id number] TECHNIQUE: A 17-channel EEG. DESCRIPTION: Background rhythm reveals slowing, mainly in the theta frequency. There is some beta activity superimposed, probably medication effect. Later, there is normal sleep activity identified in terms of sleep spindles. No lateralizing features are identified and no epileptiform features are seen. Photic results in a modest driving response. INTERPRETATION: Abnormal study consistent with mild to moderate encephalopathy. Chao Walters MD, PhD SAÚL/reynold , 09:27 PM , 09:30 PM
[2018-07-17] MEDS: Fosphenytoin Inj 100 MGPE in Sodium Chlor 0.9% Inj 50 ML IV.SIG SCH (22:19)
[2018-07-18] MEDS: Sod Chloride 0.9% Inj 1,000 ML IV.CONT SCH ×2 (00:15→09:04)
[2018-07-18 05:04] LABS: Bilirubin,Urine Negative (Negative); Clarity,Urine Clear (Clear); Color,Urine Yellow (Yellw/Straw); Glucose,Urine (UA) Negative (Negative); Leukocyte Esterase,Urine Negative (Negative); Mucus,Urine Few /lpf (Occasional); Nitrite,Urine Negative (Negative); Specific Gravity,Urine 1.021 (1.002-1.035); Squamous Epithelial Cell,Urine 1 /hpf (0-5)
[2018-07-18] MEDS: Fosphenytoin Inj 100 MGPE in Sodium Chlor 0.9% Inj 50 ML IV.SIG SCH ×3 (05:28→19:53)
--- NOTE | 2018-07-18 09:47 | P.PNONC ---
Subjective Interval history: Patient lying in bed, awake and alert. She continues with intermittent chest wall pain, worse with movement. She states if she presses on her chest wall it relieves the pain. She also complains of anxiety and is questioning if her anxiety home medications can be restarted. She is weeping at times during our conversation. Objective Vital Signs/Intake & Output: Vital Signs 07/17/18 16:00 07/17/18 19:00 07/17/18 20:00 Temperature 99.1 F 98.2 F Pulse Rate 104 H 107 H 102 H Respiratory Rate 20 16 Blood Pressure 118/81 120/63 Pulse Oximetry 95 92 L 07/17/18 23:00 07/18/18 00:00 07/18/18 03:11 Temperature 98.2 F Pulse Rate 106 H 105 H 90 Respiratory Rate 16 Blood Pressure 101/43 L Pulse Oximetry 91 L 07/18/18 04:00 Temperature 97.9 F Pulse Rate 100 H Respiratory Rate 16 Blood Pressure 107/72 Pulse Oximetry 90 L Intake & Output 07/17/18 07/18/18 07/18/18 18:59 06:59 18:59 Intake Total 1240 / 1240 52 / 52 700 / 700 Output Total 400 / 400 Balance 840 / 840 52 / 52 700 / 700 Intake: IV 1000 / 1000 52 / 52 700 / 700 NS Inj 1,000 ML @ 100 mls/hr IV 1000 / 1000 700 / 700 .CONT .Q10H BUTCH Rx#:[id number] Cerebyx Inj 100 MGPE In NS Inj 52 / 52 50 ML @ 208 mls/hr IV.SIG Q8H BUTCH Rx#:[id number] Oral 240 / 240 Output: Urine 400 / 400 Other: Date of Last Bowel Movement 07/15/18 Result Diagrams: 07/18/18 09:20 07/18/18 09:20 Laboratory Results: Laboratory Results - last 24 hr 07/17/18 07/17/18 07/17/18 10:48 11:12 11:12 WBC 2.3 L RBC 4.11 Hgb 8.9 L Hct 28.5 L MCV 69.4 L MCH 21.7 L MCHC 31.3 L RDW 18.5 H Plt Count 111 L MPV 8.4 Neut % (Auto) 73.7 H Lymph % (Auto) 18.0 Love % (Auto) 6.2 Eos % (Auto) 1.8 Baso % (Auto) 0.3 Neut # (Auto) 1.7 L Lymph # (Auto) 0.4 L Love # (Auto) 0.1 Eos # (Auto) 0.0 Baso # (Auto) 0.0 WBC Differential . Differential Comment Auto diff final PT 9.9 INR 1.0 APTT 25.4 D Fibrinogen 412 H POC Glucose 88 Total Creatine Kinase Troponin I Urine Color Urine Clarity Urine pH Ur Specific [place] Urine Protein Urine Glucose (UA) Urine Ketones Urine Occult Blood Urine Nitrate Urine Bilirubin Urine Urobilinogen Ur Leukocyte Esterase Urine RBC Urine WBC Ur Squamous Epith Cells Urine Mucus Micro UA Comment Ur Microscopic Review Urine Culture Comments Phenytoin Blood Type Antibody Screen 07/17/18 07/17/18 07/18/18 11:12 11:18 04:35 WBC RBC Hgb Hct MCV MCH MCHC RDW Plt Count MPV Neut % (Auto) Lymph % (Auto) Love % (Auto) Eos % (Auto) Baso % (Auto) Neut # (Auto) Lymph # (Auto) Love # (Auto) Eos # (Auto) Baso # (Auto) WBC Differential Differential Comment PT INR APTT Fibrinogen POC Glucose Total Creatine Kinase 157 Troponin I Less than 0.02 L Urine Color Urine Clarity Urine pH Ur Specific [place] Urine Protein Urine Glucose (UA) Urine Ketones Urine Occult Blood Urine Nitrate Urine Bilirubin Urine Urobilinogen Ur Leukocyte Esterase Urine RBC Urine WBC Ur Squamous Epith Cells Urine Mucus Micro UA Comment Ur Microscopic Review Urine Culture Comments Phenytoin 13.3 Blood Type O Positive Antibody Screen Negative 07/18/18 04:35 WBC RBC Hgb Hct MCV MCH MCHC RDW Plt Count MPV Neut % (Auto) Lymph % (Auto) Love % (Auto) Eos % (Auto) Baso % (Auto) Neut # (Auto) Lymph # (Auto) Love # (Auto) Eos # (Auto) Baso # (Auto) WBC Differential Differential Comment PT INR APTT Fibrinogen POC Glucose Total Creatine Kinase Troponin I Urine Color Yellow Urine Clarity Clear Urine pH 5.0 Ur Specific [place] 1.021 Urine Protein Negative Urine Glucose (UA) Negative Urine Ketones Negative Urine Occult Blood Negative Urine Nitrate Negative Urine Bilirubin Negative Urine Urobilinogen 2.0 H Ur Leukocyte Esterase Negative Urine RBC 1 Urine WBC 1 Ur Squamous Epith Cells 1 Urine Mucus Few H Micro UA Comment Culture not ind Ur Microscopic Review Not Reportable Urine Culture Comments Culture not ind Phenytoin Blood Type Antibody Screen Imaging Studies: Impressions Head MRI 07/17/18 00:00 CONCLUSION: 1. Nonspecific periventricular white matter signal abnormalities likely reflecting ischemic white matter demyelination. Differential considerations include demyelinating process in the appropriate clinical setting. 2. Otherwise, no acute abnormality. Specifically, no acute infarction, hemorrhage or mass. Head CT 07/17/18 09:51 CONCLUSION: 1. No evidence of acute infarct, hemorrhage, mass or edema. 2. Stable exam compared previous study on 07/15/2018 Report was called by Dr. Skinner to Dr. Walters at 1020] Head CTA 07/17/18 10:39 CONCLUSION: 1. Unremarkable head CTA exam. Specifically, no large vessel occlusion. Report was called by Dr. Frankel to Dr. Walters at 11:08 AM. Neck CTA 07/17/18 10:39 CONCLUSION: 1. Mixed plaque at the origin of the right internal carotid artery with resultant 20-25% stenosis. 2. Otherwise, no hemodynamically significant stenosis involving the carotid or vertebral arteries. 3. Redemonstration of known 4.6 cm left lung mass. Lumbar Spine MRI 07/17/18 18:20 CONCLUSION: 1. Expansile bony lesion involving the left-sided posterior elements at L5-S1 causing foraminal encroachment. 2. Moderate central spinal stenosis at L3-4 and L4-5 secondary to hypertrophic facet arthropathy. 3. Intact disc spaces without evidence of herniation. 4. No evidence of pathologic compression fracture. Thoracic Spine MRI 07/17/18 18:20 CONCLUSION: 1. Multilevel degenerative spondylosis of the thoracic spine most prominently at T4-6 with resultant moderate central canal stenosis. 2. No significant neural foraminal stenosis. 3. Please see above for detailed description of each level. Cervical Spine MRI 07/17/18 18:21 CONCLUSION: 1. Prior C4-C6 bony fusion with adjacent level disease at C6-7 resulting in moderate central canal narrowing. 2. No significant neural foraminal stenosis. 3. Please see above for detailed description of each level. Medications: Active Medications Generic Name Dose Route Start Last Admin Trade Name Freq PRN Reason Stop Dose Admin Hydrocodone Bitart/Acetaminophen 1 tab 07/17/18 18:22 07/18/18 04:25 [place] 10/325 PO 1 tab Q6H PRN Administration pain Apixaban 2.5 mg 07/17/18 09:00 07/18/18 09:03 Eliquis PO 2.5 mg BID BUTCH Administration Hydroxyzine Pamoate 50 mg 07/16/18 18:47 07/17/18 17:40 Vistaril PO 50 mg Q6H PRN Administration ANXIETY Sodium Chloride 1,000 mls @ 100 mls/hr 07/15/18 20:00 07/18/18 09:04 Ns Inj IV.CONT 100 mls/hr .Q10H BUTCH Administration Fosphenytoin Sodium 100 mgpe/ 52 mls @ 208 mls/hr 07/17/18 20:00 07/18/18 06: 26 Sodium Chloride IV.SIG 208 mls/hr Q8H BUTCH Infusion Melatonin 5 mg 07/16/18 00:36 07/17/18 21:16 Melatonin PO 5 mg HS PRN Administration INSOMNIA Sodium Chloride 2 ml 07/16/18 09:00 07/18/18 00:21 Ns Flush IV.FLUSH 2 ml BID BUTCH Administration Trimethoprim/Sulfamethoxazole 1 tab 07/16/18 09:00 07/18/18 09:03 Bactrim Ds PO 1 tab DAILY BUTCH Administration Objective Remarks: GENERAL: Ill-appearing female patient, side lying, in no acute distress. SKIN: Warm and dry. HEAD: Normocephalic. EYES: No scleral icterus. No injection or drainage. NECK: Supple, trachea midline. CARDIOVASCULAR: Regular rate and rhythm without murmurs. RESPIRATORY: Breath sounds equal bilaterally, faint expiratory wheezes. Nonlabored at rest. + Reductive cough. GASTROINTESTINAL: Abdomen soft, non-tender, nondistended. EXTREMITIES: No cyanosis, or edema. MUSCULOSKELETAL: Adequate muscle tone. NEUROLOGICAL: No obvious focal deficit. Awake, alert, and oriented x3. PSYCHIATRIC: Anxious, crying at times; insight and judgment normal. Assessment/Plan - Plan Ms. Robertson is a, diagnosed earlier this year with stage III non-small cell carcinoma of the lung. She is actively undergoing combined chemoradiation therapy. She receives weekly carboplatin and Taxol, her last dose was on 2017. She has approximately 3 weeks of radiation remaining in 3 weeks of chemotherapy remaining. Prior to this hospitalization the patient began to experience right-sided extremity weakness. She was being evaluated for stroke when the carotid artery Doppler ultrasound incidentally found a small nonocclusive thrombus within the right IJ. Recommendations: 1. Non-small cell carcinoma of the lung, patient to resume combined chemoradiotherapy once her acute illness has resolved and she is discharged from the hospital. 2. Pancytopenia, secondary to chemotherapy. Continue to monitor closely. 3. Small nonocclusive thrombus involving the right IJ, continue Eliquis 2.5 mg twice daily, anticipate cytopenias related to chemotherapy, continue to monitor with daily CBC. 4. Right-sided weakness, neurology is following. MRI lumbar showed expansile bony lesion left side posterior elements L5-S1 with foraminal encroachment. - Attending Statement The exam, history, and the medical decision-making described in the above note were completed with the assistance of the mid-level provider. I reviewed and agree with the findings presented. I attest that I had a [id number] encounter with the patient on the same day, and personally performed and documented my assessment and findings in the medical record. Patient is very anxious and crying Wants to know what is going to happen next Right-sided weakness persist Complaining of chest pain and back pain Radiological studies showed L5/S1 lesions suspicious for metastasis Myelosuppression due to the radiation plus chemotherapy which is on hold now Continue low-dose Eliquis 2.5 mg twice a day for IJ thrombosis Resume anxiety medications Psych input noted
[2018-07-18 09:50] LABS: Baso % (Auto) 0.3 % (0.0-2.0); Eos # (Auto) 0.1 th/mm3 (0.0-0.4); Eos % (Auto) 2.2 % (0.0-4.0); Hemoglobin 8.6 gm/dL (11.6-15.3); Lymph # (Auto) 0.3 th/mm3 (1.0-4.8); Mean Corpuscular HGB Conc 31.7 % (32.0-36.0); Mean Corpuscular Hemoglobin 21.6 pg (27.0-34.0); Mean Platelet Volume 8.3 fL (7.0-11.0); Mono # (Auto) 0.1 th/mm3 (0.0-0.9); Mono % (Auto) 4.3 % (0.0-8.0); Neut # (Auto) 1.9 th/mm3 (1.8-7.7); Neut % (Auto) 79.2 % (16.0-70.0); Platelet Count 109 th/mm3 (150-450); Red Blood Count 3.97 mil/mm3 (4.00-5.30); Red Cell Distribution Width 18.4 % (11.6-17.2); White Blood Count 2.4 th/mm3 (4.0-11.0)
[2018-07-18 10:15] LABS: Alanine Aminotransferase 15 U/L (10-53); Albumin 2.9 g/dL (3.4-5.0); Alkaline Phosphatase 90 U/L (45-117); Anion Gap 7 meq/L (5-15); Aspartate Aminotransferase 14 U/L (15-37); Blood Urea Nitrogen 14 mg/dL (7-18); Calcium 8.4 mg/dL (8.5-10.1); Carbon Dioxide 28.9 meq/L (21.0-32.0); Chloride 106 meq/L (98-107); Glomerular Filtration Rate 59 mL/min (>89); Glucose,Random 143 mg/dL (74-106); Potassium 4.4 meq/L (3.5-5.1); Sodium 142 meq/L (136-145)
--- NOTE | 2018-07-18 11:12 | P.CONPSY ---
Provisional Diagnosis Admission Date: July 15, 2018 20:05 [place] I.: Adjustment disorder with mixed disturbances of emotion and conduct History of Present Illness Service: Psychiatry Consult date: 07/18/18 Requesting Physician: Tommy Nuno Reason for Consult: Assessment Primary Care Provider: [employer] Chief Complaint: Right-sided weakness; right upper and lower extremity. History of Present Illness: Patient is a 67-year-old white female admitted for treatment of multiple medical issues including cancer. Asked to see because of a brief episode of altered mental status. There is also right-sided weakness noted at the present time patient sitting quietly in her bed in her room floor staff present throughout session. Patient is alert and oriented stockily built heavily tanned white female with a marked [place] accident somewhat irritable aggressive and angry. She does acknowledge her anger is focused somewhat on her perception of all physicians have shared with her her conditions including her cancer and the extent of it. She states she was so angry yesterday that she almost blacked out for a period of time. She acknowledges having a short temper in the past. She states she did see his psychiatrist a number of years ago briefly was perhaps on some type of medication that did not agree with her but that is been a number of years ago. She denies inpatient psychiatric hospitalization. She denies suicidality homicidality voices or visions. She denies any alcohol or drug use with this. She does have children grandchildren she is close to. Patient is oriented. At this time I feel patient does have capacity to make decisions concerning her care and her treatment. However I do feel she may be benefit from an antidepressant though at this time she is absolutely against any type of psychotropic. However she is L[employer] would like to talk to her horse groomer perhaps that may be a good starting point for some counseling. In any event at this time I see no further benefit of psychiatric assessment. She I feel she does have capacity. That at this time the best treatment would be talk therapy perhaps through her horse groomer next the consult will sign off at the present time Review of Systems All other systems reviewed negative except as stated in HPI PMFSH - History History Provided By: Patient - Medical History Medical History: Medical History (Last Reviewed 07/17/18 @ 17:04 by KIRT Goldman) Anemia Anxiety Arthritis Back pain CHF (congestive heart failure) COPD (chronic obstructive pulmonary disease) Cataract Diverticulitis GERD (gastroesophageal reflux disease) Gastric ulcer H/O pelvic mass Head injury Heart disease Heartburn Hiatal hernia History of hysterectomy Hx of headache Hypertension Liver problem Lung cancer Lupus Neck pain On home oxygen therapy Osteoarthritis Osteoporosis Pneumothorax after biopsy Port catheter in place Renal disease Shortness of breath Stroke Thalassemia - Surgical History Surgical History: Surgical History (Last Reviewed 07/17/18 @ 17:04 by KIRT Goldman) History of fundoplication History of neck surgery Hx of cataract surgery Hx of removal of ovary - Family History Family History: Family History (Last Reviewed 07/17/18 @ 17:04 by KIRT Goldman) Father Lung cancer Brother Prostate cancer Daughter Breast cancer - Tobacco History Second Hand Smoke Exposure: No Tobacco Use In Past 30 Days: No Smoking Status: Former smoker Tobacco Type: Cigarettes - Alcohol History How Often Do You Have a Drink Containing Alcohol: Never - Substance Use History Substance History: No History of Abuse - Travel History Recent Travel in the [place] Within the Last 8 Weeks: No Recent Travel Out of the Country Within the Last 8 Weeks: No - Immunization History Tetanus Immunization: Unsure Medications and Allergies Active Medications: Active Medications Acetaminophen (Tylenol) 650 mg PO Q6H PRN PRN Reason: pain if pt refuses norco Hydrocodone Bitart/Acetaminophen ([place] 10/325) 1 tab PO Q6H PRN PRN Reason: pain Last Admin: 07/18/18 04:25 Dose: 1 tab Al Hydroxide/Mg Hydroxide (Milk Of [place] Liq) 30 ml PO Q12H PRN PRN Reason: Mild Constipation Albuterol (Duoneb Neb (Prn)) 1 ampul NEB Q6HR NEB PRN PRN Reason: WHEEZING Apixaban (Eliquis) 2.5 mg PO BID [facility] Last Admin: 07/18/18 09:03 Dose: 2.5 mg Bisacodyl (Dulcolax Supp) 10 mg RECTAL DAILY PRN PRN Reason: SEVERE CONSITIPATION Hydroxyzine Pamoate (Vistaril) 50 mg PO Q6H PRN PRN Reason: ANXIETY Last Admin: 07/17/18 17:40 Dose: 50 mg Sodium Chloride (Ns Inj) 1,000 mls @ 100 mls/hr IV.CONT .Q10H [facility] Last Admin: 07/18/18 09:04 Dose: 100 mls/hr Fosphenytoin Sodium 100 mgpe/ (Sodium Chloride) 52 mls @ 208 mls/hr IV.SIG Q8H [facility] Last Infusion: 07/18/18 06:26 Dose: 208 mls/hr Lactulose (Lactulose Liq) 30 ml PO DAILY PRN PRN Reason: SEVERE CONSITIPATION Lorazepam (Ativan Inj) 1 mg IV.PUSH Q4H PRN PRN Reason: SEIZURES Melatonin (Melatonin) 5 mg PO HS PRN PRN Reason: INSOMNIA Last Admin: 07/17/18 21:16 Dose: 5 mg Ondansetron HCl (Zofran Odt) 8 mg PO Q8H PRN PRN Reason: Nausea Or Vomiting Sennosides (Senokot) 17.2 mg PO Q12H PRN PRN Reason: Moderate Constipation Sodium Chloride (Ns Flush) 2 ml IV.FLUSH BID [facility] Last Admin: 07/18/18 00:21 Dose: 2 ml Sodium Chloride (Ns Flush) 2 ml IV.FLUSH PRN PRN PRN Reason: FLUSH AFTER USING IV ACCESS Trimethoprim/Sulfamethoxazole (Bactrim Ds) 1 tab PO DAILY [facility] Last Admin: 07/18/18 09:03 Dose: 1 tab Allergies Allergy/AdvReac Type Severity Reaction Status Date / Time aspirin Allergy Severe Bleeding Verified 06/01/18 09:18 morphine Allergy Severe STS CAN'T Verified 06/01/18 09:18 BREATH, RASH vancomycin Allergy Intermediate severe Verified 06/01/18 09:18 itching and hives naproxen AdvReac Severe STS BLOOD Verified 06/01/18 09:18 IN URINE Home Medications Medication Instructions Recorded Confirmed Type amlodipine-benazepril 1 cap PO DAILY 05/18/18 07/15/18 History hydrocodone-acetaminophen 1 tab PO Q6HR PRN 05/18/18 07/15/18 History sulfamethoxazole-trimethoprim 1 tab PO DAILY 07/15/18 07/15/18 History [Bactrim DS] Exam Vital signs: Vital Signs 07/17/18 16:00 07/17/18 19:00 07/17/18 20:00 Temperature 99.1 F 98.2 F Pulse Rate 104 H 107 H 102 H Respiratory Rate 20 16 Blood Pressure 118/81 120/63 Pulse Oximetry 95 92 L 07/17/18 23:00 07/18/18 00:00 07/18/18 03:11 Temperature 98.2 F Pulse Rate 106 H 105 H 90 Respiratory Rate 16 Blood Pressure 101/43 L Pulse Oximetry 91 L 07/18/18 04:00 Temperature 97.9 F Pulse Rate 100 H Respiratory Rate 16 Blood Pressure 107/72 Pulse Oximetry 90 L Intake & Output 07/17/18 07/18/18 07/18/18 18:59 06:59 18:59 Intake Total 1240 / 1240 700 / 700 Output Total 400 / 400 Balance 840 / 840 700 / 700 Intake: IV 1000 / 1000 700 / 700 NS Inj 1,000 ML @ 100 mls/hr IV 1000 / 1000 700 / 700 .CONT .Q10H [facility] Rx#:[id number] Cerebyx Inj 100 MGPE In NS Inj 50 ML @ 208 mls/hr IV.SIG Q8H BUTCH Rx#:[id number] Oral 240 / 240 Output: Urine 400 / 400 Other: Date of Last Bowel Movement 07/15/18 Narrative: Patient sitting quietly in bed she is in no acute distress though she is wearing nasal oxygen. No complaints of chest pain or abdominal pain. Patient moving all 4 extremities Mental Status Examination Consciousness: Alert Orientation: x4 Motor Activity: Other (Patient laying in bed though does move all 4 extremities) Speech: Pressured, Rapid, Other (Strong [place] accident) Language: Adequate Fund of Knowledge: Adequate Attention and Concentration: Adequate Memory: Unremarkable Mood: Angry, Irritable, Other (Mildly dysphoric) Affect: Other (Increased range and intensity) Thought Process & Associations: Intact Thought Content: Appropriate Hallucination Type: None Delusion Type: None Suicidal Ideation: No Suicidal Plan: No Suicidal Intention: No Homicidal Ideation: No Homicidal Plan: No Homicidal Intention: No Insight: Fair Judgment: Impulsive Assessment and Plan - Assessment (1) Adjustment disorder with mixed disturbance of emotions and conduct Code(s): F43.25 - Adjustment disorder with mixed disturbance of emotions and conduct Status: Acute - Plan Plan: Estimated LOS: [] days At this time patient I feel would benefit from referral to for counseling , she continues quite angry and underlying depression related to the stressors that she is undergoing especially the malignancy and its sequelae. While she may benefit from an antidepressant I feel at this time her attitude or irritability would defeat any possible some success with it. However she is competent. At this time thus we will sign off please reconsult us as indicated Justification for Continued Inpatient Stay: Please see [facility] treatment team Discharge Planning: To be determined by treatment team Request Healthcare Surrogate/Guardian Advocate?: No
--- NOTE | 2018-07-18 15:00 | P.PN ---
Subjective Interval history: Nurse reports the patient did have some productive sputum. Patient says she has more coughing when she lies down. Patient herself says she has some chest pain which she affirms is tender to palpation. Says she has had some numbness issues in both of her feet. Physical Exam Vital signs: Vital Signs 07/17/18 16:00 07/17/18 19:00 07/17/18 20:00 Temperature 99.1 F 98.2 F Pulse Rate 104 H 107 H 102 H Respiratory Rate 20 16 Blood Pressure 118/81 120/63 Pulse Oximetry 95 92 L 07/17/18 23:00 07/18/18 00:00 07/18/18 03:11 Temperature 98.2 F Pulse Rate 106 H 105 H 90 Respiratory Rate 16 Blood Pressure 101/43 L Pulse Oximetry 91 L 07/18/18 04:00 07/18/18 08:00 07/18/18 11:53 Temperature 97.9 F 98.5 F 99.4 F Pulse Rate 100 H 95 H 106 H Respiratory Rate 16 18 18 Blood Pressure 107/72 101/56 L 120/66 Pulse Oximetry 90 L 96 97 07/18/18 12:28 Temperature Pulse Rate 109 H Respiratory Rate Blood Pressure Pulse Oximetry Intake & Output 07/17/18 07/18/18 07/18/18 18:59 06:59 18:59 Intake Total 1240 / 1240 804 / 804 Output Total 400 / 400 Balance 840 / 840 804 / 804 Intake: IV 1000 / 1000 52 804 / 804 NS Inj 1,000 ML @ 100 mls/hr IV 1000 / 1000 700 / 700 .CONT .Q10H BUTCH Rx#:[id number] Cerebyx Inj 100 MGPE In NS Inj 52 104 / 104 50 ML @ 208 mls/hr IV.SIG Q8H BUTCH Rx#:[id number] Oral 240 / 240 Output: Urine 400 / 400 Other: Date of Last Bowel Movement 07/15/18 07/18/18 Narrative: Has sternal tenderness to palpation Heart sounds regular rate and rhythm, no murmurs Clear lungs bilaterally, unlabored breathing Results - Labs CBC & Chem 7: 07/18/18 09:20 07/18/18 09:20 Laboratory Results - last 24 hr 07/18/18 07/18/18 07/18/18 04:35 04:35 09:20 WBC 2.4 L RBC 3.97 L Hgb 8.6 L Hct 27.0 L MCV 68.0 L MCH 21.6 L MCHC 31.7 L RDW 18.4 H Plt Count 109 L MPV 8.3 Neut % (Auto) 79.2 H Lymph % (Auto) 14.0 [place] % (Auto) 4.3 Eos % (Auto) 2.2 Baso % (Auto) 0.3 Neut # (Auto) 1.9 Lymph # (Auto) 0.3 L [place] # (Auto) 0.1 Eos # (Auto) 0.1 Baso # (Auto) 0.0 WBC Differential . Differential Comment Auto diff final Sodium Potassium Chloride Carbon Dioxide Anion Gap BUN Creatinine Estimated GFR Random Glucose Calcium Total Bilirubin AST ALT Alkaline Phosphatase Total Protein Albumin Urine Color Yellow Urine Clarity Clear Urine pH 5.0 Ur Specific [place] 1.021 Urine Protein Negative Urine Glucose (UA) Negative Urine Ketones Negative Urine Occult Blood Negative Urine Nitrate Negative Urine Bilirubin Negative Urine Urobilinogen 2.0 H Ur Leukocyte Esterase Negative Urine RBC 1 Urine WBC 1 Ur Squamous Epith Cells 1 Urine Mucus Few H Micro UA Comment Culture not ind Ur Microscopic Review Not Reportable Urine Culture Comments Culture not ind Phenytoin 13.3 07/18/18 09:20 WBC RBC Hgb Hct MCV MCH MCHC RDW Plt Count MPV Neut % (Auto) Lymph % (Auto) [place] % (Auto) Eos % (Auto) Baso % (Auto) Neut # (Auto) Lymph # (Auto) [place] # (Auto) Eos # (Auto) Baso # (Auto) WBC Differential Differential Comment Sodium 142 Potassium 4.4 Chloride 106 Carbon Dioxide 28.9 Anion Gap 7 BUN 14 Creatinine 0.94 Estimated GFR 59 L Random Glucose 143 H Calcium 8.4 L Total Bilirubin 0.4 AST 14 L ALT 15 Alkaline Phosphatase 90 Total Protein 7.0 Albumin 2.9 L Urine Color Urine Clarity Urine pH Ur Specific [place] Urine Protein Urine Glucose (UA) Urine Ketones Urine Occult Blood Urine Nitrate Urine Bilirubin Urine Urobilinogen Ur Leukocyte Esterase Urine RBC Urine WBC Ur Squamous Epith Cells Urine Mucus Micro UA Comment Ur Microscopic Review Urine Culture Comments Phenytoin - Imaging Impressions Head MRI 07/17/18 00:00 CONCLUSION: 1. Nonspecific periventricular white matter signal abnormalities likely reflecting ischemic white matter demyelination. Differential considerations include demyelinating process in the appropriate clinical setting. 2. Otherwise, no acute abnormality. Specifically, no acute infarction, hemorrhage or mass. Lumbar Spine MRI 07/17/18 18:20 CONCLUSION: 1. Expansile bony lesion involving the left-sided posterior elements at L5-S1 causing foraminal encroachment. 2. Moderate central spinal stenosis at L3-4 and L4-5 secondary to hypertrophic facet arthropathy. 3. Intact disc spaces without evidence of herniation. 4. No evidence of pathologic compression fracture. Thoracic Spine MRI 07/17/18 18:20 CONCLUSION: 1. Multilevel degenerative spondylosis of the thoracic spine most prominently at T4-6 with resultant moderate central canal stenosis. 2. No significant neural foraminal stenosis. 3. Please see above for detailed description of each level. Cervical Spine MRI 07/17/18 18:21 CONCLUSION: 1. Prior C4-C6 bony fusion with adjacent level disease at C6-7 resulting in moderate central canal narrowing. 2. No significant neural foraminal stenosis. 3. Please see above for detailed description of each level. Assessment and Plan - Plan 67-year-old female admitted with subacute right-sided weakness and acute kidney injury. Has non-small cell lung cancer, followed by oncology. Renal function improved with IV fluids, head MRI unremarkable. Stroke alert was called 07/18 due to the patient being minimally responsive. Neurological workup was negative , patient returned to her baseline. Neurology thought seizures could have played a role. EEG obtained is negative. Palliative care met with the patient , switched to DNR under patient's discretion. Stroke alert was called on 07/18 -neurological workup is all negative. EEG obtained, negative for any seizures -Input appreciated, no further workup or treatment from a psych perspective. //Right upper and right lower extremity weakness w/ pain -CT brain negative for acute, magnesium stable Neurology following, cervical thoracic and head MRIs are not revealing for any sources of neurological deficit Lumbar MRI indicates some mild pinching -TSH, CK, phosphorus, magnesium within normal limits acute Congestive heart failure? -CXR pending //Non-small cell lung cancer. Stage T3N3, IIIC -Followed by Dr. Melendez -continue home prophylactic dose of Bactrim Nonocclusive thrombus within the right IJ incidentally on carotid ultrasound -eliquis per oncology //Nausea. -tolerable, Likely secondary to dehydration, chemotherapy. -Antiemetics. //History of hypertension. -Will hold off on home blood pressure meds and monitor. skinny
--- NOTE | 2018-07-18 15:51 | XR ---
EXAM DATE: 07/18/2018 3:44 PM EST AGE/SEX: 67 years / Female INDICATIONS: . Cough. CLINICAL DATA: This is the patient's initial encounter. Patient reports that signs and symptoms have been present for 3 weeks and indicates a pain score of 0/10. MEDICAL/SURGICAL HISTORY: . Carcinoma, lung. Lupus. Congestive heart failure. . Neck surgery. Ovary removal. Cataract. Infusaport. COMPARISON: [facility] – [place], [place], CT CHEST W CONTRAST, 05/19/2018. . FINDINGS: There is mild bibasilar atelectasis. There is a masslike parenchymal opacity of the left mid lung whi ch may be partially cavitated, not significantly changed. No pleural effusion demonstrated. No pneumo thorax. Heart size within normal limits. CONCLUSION: 1. Mild bibasilar atelectasis. 2. No left-sided lung mass not significantly changed. Electronically signed by: Leonid Ibrahim MD 07/18/2018 3:50 PM EST
[2018-07-18 17:03] LABS: Bilirubin,Urine Negative (Negative); Clarity,Urine Clear (Clear); Color,Urine Yellow (Yellw/Straw); Glucose,Urine (UA) Negative (Negative); Leukocyte Esterase,Urine Negative (Negative); Mucus,Urine Few /lpf (Occasional); Nitrite,Urine Negative (Negative); Specific Gravity,Urine 1.019 (1.002-1.035); Squamous Epithelial Cell,Urine 3 /hpf (0-5); Urobilinogen,Urine 4 or Greater mg/dL (Less than 2)
[2018-07-18 19:52] VITALS: RESP 16
[2018-07-18] MEDS: Melatonin 5 MG Tablet PO PRN (22:33)
[2018-07-19] MEDS: Fosphenytoin Inj 100 MGPE in Sodium Chlor 0.9% Inj 50 ML IV.SIG SCH ×2 (04:24→13:00)
--- NOTE | 2018-07-19 08:47 | P.DS ---
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 Melendez. Patient is brought in to ER due to 1 day history of progressively worsening shortness of breath with exertion, fatigue, lightheadedness worse with standing, as well as right upper and right lower extremity weakness, constant vague cramping in both right upper and right lower extremities. She also reports a dull whole head headache over the past few days. Nausea has also worsened over the past few days. Denies any chest pain, fevers. DS: Medications - Discharge Medications Prescriptions: apixaban [Eliquis] 2.5 mg PO BID #60 tab phenytoin sodium extended [Dilantin] 90 mg PO TID #90 cap DS: Summary Hospital Course: Patient was admitted, started on IV fluids. Underwent neurological imaging which did not show any results or infarcts. Patient had a stroke alert called upon her since she had trouble becoming responsive on her second day of hospitalization. Again rapid imaging did not show any acute changes. Patient' s mental status returned to baseline. Neurology felt that she might of had a seizure and she was started on antiepileptics. Psychiatry also did not find any reason to keep the patient involuntarily hospitalized. Patient's kidney function improved with hydration and she was back to tolerating p.o. intake. Patient has met maximum benefit from hospitalization and is clinically stable for discharge, to follow-up with oncology outpatient. Patient was instructed to refrain from driving, operating any heavy machinery or dangerous machinery, swimming alone for at least 6 months of being seizure, spell free. - Time Spent with Patient Total time spent providing and/or coordinating discharge services: Less than 30 minutes - Quality: Stroke Last date observed well: 07/17/18 Last time observed well: 10:00 - Quality: VTE Deep Vein Thrombosis/Pulmonary Embolism Present on Admission: No Exam Vital signs: Vital Signs 07/18/18 11:53 07/18/18 12:28 07/18/18 16:00 Temperature 99.4 F 98.0 F Pulse Rate 106 H 109 H 101 H Respiratory Rate 18 18 Blood Pressure 120/66 110/63 Pulse Oximetry 97 99 07/18/18 16:28 07/18/18 19:49 07/18/18 20:08 Temperature 98.4 F Pulse Rate 93 H 102 H 95 H Respiratory Rate 16 Blood Pressure 120/78 Pulse Oximetry 95 07/18/18 23:31 07/19/18 00:38 07/19/18 01:14 Temperature 98 F Pulse Rate 91 H 96 H Respiratory Rate 16 16 Blood Pressure 112/56 L Pulse Oximetry 94 L 07/19/18 03:57 07/19/18 04:29 07/19/18 07:59 Temperature 98 F Pulse Rate 87 81 84 Respiratory Rate 16 Blood Pressure 101/63 Pulse Oximetry 93 L 07/19/18 08:17 Temperature 99.7 F H Pulse Rate 101 H Respiratory Rate 16 Blood Pressure 114/80 Pulse Oximetry 95 Intake & Output 07/18/18 07/19/18 07/19/18 18:59 06:59 18:59 Intake Total 1924 / 1924 584 / 584 Output Total 750 / 750 1000 / 1000 Balance 1174 / 1174 -416 / -416 Weight 83.3 kg Intake: IV 1204 / 1204 104 / 104 NS Inj 1,000 ML @ 100 mls/hr IV 1100 / 1100 .CONT .Q10H BUTCH Rx#:[id number] Cerebyx Inj 100 MGPE In NS Inj 104 / 104 104 / 104 50 ML @ 208 mls/hr IV.SIG Q8H BUTCH Rx#:[id number] Oral 720 / 720 480 / 480 Output: Urine 750 / 750 1000 / 1000 Other: Date of Last Bowel Movement 07/18/18 07/18/18 Narrative: Heart sounds regular rate and rhythm, no murmurs Clear lungs bilaterally, unlabored breathing Awake and alert, no acute distress, no facial droop, slurred speech Results Procedures completed during hospitalization: . Labs on day of discharge: Labs from last 24 hours 07/18/18 07/18/18 07/18/18 16:36 09:20 09:20 WBC 2.4 L RBC 3.97 L Hgb 8.6 L Hct 27.0 L MCV 68.0 L MCH 21.6 L MCHC 31.7 L RDW 18.4 H Plt Count 109 L MPV 8.3 Neut % (Auto) 79.2 H Lymph % (Auto) 14.0 [place] % (Auto) 4.3 Eos % (Auto) 2.2 Baso % (Auto) 0.3 Neut # (Auto) 1.9 Lymph # (Auto) 0.3 L [place] # (Auto) 0.1 Eos # (Auto) 0.1 Baso # (Auto) 0.0 WBC Differential . Differential Comment Auto diff final Sodium 142 Potassium 4.4 Chloride 106 Carbon Dioxide 28.9 Anion Gap 7 BUN 14 Creatinine 0.94 Estimated GFR 59 L Random Glucose 143 H Calcium 8.4 L Total Bilirubin 0.4 AST 14 L ALT 15 Alkaline Phosphatase 90 Total Protein 7.0 Albumin 2.9 L Urine Color Yellow Urine Clarity Clear Urine pH 6.0 Ur Specific [place] 1.019 Urine Protein Negative Urine Glucose (UA) Negative Urine Ketones Negative Urine Occult Blood Small H Urine Nitrate Negative Urine Bilirubin Negative Urine Urobilinogen 4 or greater Ur Leukocyte Esterase Negative Urine RBC 16 H Urine WBC 2 Ur Squamous Epith Cells 3 Urine Mucus Few H Micro UA Comment Cath-culture not ind Ur Microscopic Review Not Reportable Urine Culture Comments Cath-cult not ind - Impressions ITS Impressions Knee X-Ray 07/15/18 14:28 CONCLUSION: 1. 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 Venous Doppler Study 07/15/18 14:28 CONCLUSION: 1. No sonographic evidence for lower extremity DVT. Carotid Doppler Study 07/16/18 00:00 CONCLUSION: No evidence for hemodynamically significant stenosis. Hip X-Ray 07/16/18 00:00 CONCLUSION: No fracture, subluxation or significant joint space narrowing/arthropathy of the right hip. Head MRI 07/17/18 00:00 CONCLUSION: 1. Nonspecific periventricular white matter signal abnormalities likely reflecting ischemic white matter demyelination. Differential considerations include demyelinating process in the appropriate clinical setting. 2. Otherwise, no acute abnormality. Specifically, no acute infarction, hemorrhage or mass. Head CT 07/17/18 09:51 CONCLUSION: 1. No evidence of acute infarct, hemorrhage, mass or edema. 2. Stable exam compared previous study on 07/15/2018 Report was called by Dr. Skinner to Dr. Walters at 1020] Head CTA 07/17/18 10:39 CONCLUSION: 1. Unremarkable head CTA exam. Specifically, no large vessel occlusion. Report was called by Dr. Frankel to Dr. Walters at 11:08 AM. Neck CTA 07/17/18 10:39 CONCLUSION: 1. Mixed plaque at the origin of the right internal carotid artery with resultant 20-25% stenosis. 2. Otherwise, no hemodynamically significant stenosis involving the carotid or vertebral arteries. 3. Redemonstration of known 4.6 cm left lung mass. Lumbar Spine MRI 07/17/18 18:20 CONCLUSION: 1. Expansile bony lesion involving the left-sided posterior elements at L5-S1 causing foraminal encroachment. 2. Moderate central spinal stenosis at L3-4 and L4-5 secondary to hypertrophic facet arthropathy. 3. Intact disc spaces without evidence of herniation. 4. No evidence of pathologic compression fracture. Thoracic Spine MRI 07/17/18 18:20 CONCLUSION: 1. Multilevel degenerative spondylosis of the thoracic spine most prominently at T4-6 with resultant moderate central canal stenosis. 2. No significant neural foraminal stenosis. 3. Please see above for detailed description of each level. Cervical Spine MRI 07/17/18 18:21 CONCLUSION: 1. Prior C4-C6 bony fusion with adjacent level disease at C6-7 resulting in moderate central canal narrowing. 2. No significant neural foraminal stenosis. 3. Please see above for detailed description of each level. Chest X-Ray 07/18/18 00:00 CONCLUSION: 1. Mild bibasilar atelectasis. 2. No left-sided lung mass not significantly changed. Discharge Plan - Discharge Disposition Patient Disposition: /Home Health Service - Discharge Condition Condition: Stable - Discharge Order Discharge Orders: Discharge Order (Routine); Ordered 07/19/18 Ordered By: Tommy Nuno - Physicians Team Primary Care Provider: Olegario Melvin Attending Provider: Tommy Nuno Other Providers: Olegario Melvin ; Aryan Porter MD ; Jeremy Mirza MD ; Rajesh Dawn MD ; Michael Winn MD ; Chao Walters MD, PhD
[2018-07-19 13:26] VITALS: BP 126/69; PULSE 107; TEMP 98.7; O2SAT 97
--- NOTE | 2018-07-19 15:11 | P.DCO ---
- Diagnosis (1) Non-small cell carcinoma of left lung Status: Acute - Physical Therapy Order: Evaluate and treat - Occupational Therapy Order: Evaluate and treat - Case Management Consult No - Certification I have seen patient Teresa Robertson on 07/19/18. My clinical findings support the need for the requested home health care services because: Limited ability to care for self I certify that my clinical findings support that this patient is homebound because: Unsafe to leave home unassisted
[2018-07-19] MEDS ORDERED: Heparin Central Flush 100 UNIT/ML 5 ML Vial IV.FLUSH PRN ×2 (15:38)
== END 2018-07-19 18:34 | disposition home health service (06) ==
LOC: NEDA 13:49 → NEPC 13:49 → HCIN 22:10
PROVIDERS: ADMIT Hospitalist; ATTEND Hospitalist